=== PATIENT | female | born 1945 | race Caucasian/White ===

== ENCOUNTER → 2016-05-28 | Outpatient (CLI) | payer OTHER ==
[~2016-05-28] MED LIST: ALPR-411 PO; ASPI81TA21 PO; ATEN25TA PO; CHOL4POW5 PO; ESCI1TAB18 PO; GEMF600T PO; HYDR25TA4 PO; LOSA1TAB38 PO; METF500T PO; MULT-845 PO; OMEP40CA41 PO; OXYC-57 PO; POTA10CA28 PO; PRLSR20 PO; ROSU40TA PO; TRIATAB3 PO; [UNRECOGNIZED DRUG - OTHER] PO
[2016-05-28 09:01] LABS: BLOOD UREA NITROGEN 16 mg/dl (7-18); BUN/CREATININE RATIO 27.3 (10-20); CALCIUM 9.5 mg/dl (8.5-10.1); CARBON DIOXIDE 27 mmol/L (21-32); CHLORIDE 110 mmol/L (98-107); GLUCOSE 101 mg/dl (70-99); SODIUM 147 mmol/L (136-145)
[2016-05-28 10:01] LABS: ESTIMATED AVERAGE GLUCOSE 123 mg/dl; HA1C FLAG Normal (Normal)
--- NOTE | 2016-06-02 14:12 | CODING QUERY MEDICAL NECESSITY ---
SUPPORTING DIAGNOSIS NEEDED A supporting diagnosis is required for the test/procedure performed on this patient in order for us to be reimbursed by the patient's insurance. Please provide a supporting diagnosis for the following test/procedure listed below next to the test name along with your signature. *If there is no additional diagnosis for this patient that would support the following test/procedure please document that below next to the test/procedure. Test(s)/Procedure(s) that require a supporting diagnosis: * GLYCATED HEMOGLOBIN DIAGNOSIS: * DOS: 05/28/16 Provider Signature: Date: Thank you Bina Rockwell Health Information Management Once completed, please kindly fax back to [phone] For questions please call [phone]
== END ==
LOC: C.LABFOXMH 08:36
PROVIDERS: ATTEND Internal Medicine
DX: I10 Essential (primary) hypertension (principal); E11.9 Type 2 diabetes mellitus without complications

== ENCOUNTER → 2016-10-21 | Outpatient (CLI) | payer OTHER ==
[~2016-10-21] MED LIST changes: -OXYC-57 PO
[2016-10-21 08:29] LABS: HEMATOCRIT 38.7 % (37-47); MEAN CORPUSCULAR HEMOGLOBIN 28.6 pg (25-34); MEAN CORPUSCULAR HGB CONC 30.7 g/dl (32-36); MEAN PLATELET VOLUME 11.4 fL (7.4-10.4); PLATELET COUNT 206 K/uL (130-400); RED BLOOD COUNT 4.16 M/uL (4.2-5.4); WHITE BLOOD COUNT 4.97 K/uL (4.8-10.8)
[2016-10-21 08:43] LABS: ALT/SGPT 17 U/L (12-78); BLOOD UREA NITROGEN 17 mg/dl (7-18); BUN/CREATININE RATIO 26.2 (10-20); CARBON DIOXIDE 27 mmol/L (21-32); CHLORIDE 114 mmol/L (98-107); CREATININE 0.63 mg/dl (0.60-1.20); GLUCOSE 102 mg/dl (70-99); POTASSIUM 4.9 mmol/L (3.5-5.1); SODIUM 148 mmol/L (136-145)
[2016-10-21 08:48] LABS: CALCIUM 8.7 mg/dl (8.5-10.1)
[2016-10-21 08:54] LABS: ALB/GLOB RATIO 1.2 (0.9-2); ALKALINE PHOSPHATASE 79 U/L (45-117); AST/SGOT 11 U/L (15-37)
[2016-10-21 11:05] LABS: ESTIMATED AVERAGE GLUCOSE 134 mg/dl; HA1C FLAG Normal (Normal)
--- NOTE | 2016-11-02 12:59 | CODING QUERY MEDICAL NECESSITY ---
SUPPORTING DIAGNOSIS NEEDED A supporting diagnosis is required for the test/procedure performed on this patient in order for us to be reimbursed by the patient's insurance. Please provide a supporting diagnosis for the following test/procedure listed below next to the test name along with your signature. *If there is no additional diagnosis for this patient that would support the following test/procedure please document that below next to the test/procedure. Test(s)/Procedure(s) that require a supporting diagnosis: * HEMOGLOBIN A1C DIAGNOSIS: * VITAMIN B12 DIAGNOSIS: Provider Signature: Date: Thank you Ingrid Zaman [employer] Information Management Once completed, please kindly fax back to [phone] For questions please call [phone]
== END | disposition home or self-care (01) ==
LOC: C.LABFOXMH 08:07
PROVIDERS: ATTEND Internal Medicine
DX: G62.9 Polyneuropathy, unspecified (principal); E11.9 Type 2 diabetes mellitus without complications; R53.83 Other fatigue

== ENCOUNTER → 2016-10-30 | Outpatient (CLI) | payer OTHER ==
[~2016-10-30] MED LIST changes: -OMEP40CA41 PO; -TRIATAB3 PO
== END | disposition home or self-care (01) ==
LOC: C.LABFOXMH 08:59
PROVIDERS: ATTEND Internal Medicine
DX: M26.629 Arthralgia of temporomandibular joint, unspecified side (principal)

== ENCOUNTER → 2016-11-23 | Day surgery (SDC) | payer OTHER ==
[2016-10-26 10:16] VITALS: Ht 165.1 cm; Wt 83.2 kg
[~2016-11-23] VITALS: Ht 165.1 cm; Wt 83.2 kg
[~2016-11-23] MED LIST changes: +500ML BSSPLUS 0.5ML EPI1:1000 IRRIG ONE; +ACETAMINOPHEN 325 MG TAB PO PRN; +ATROPINE SULFATE 0.1 MG/ML 5ML SYR IV PRN; +ATROPINE SULFATE 1% OP OINT PER APPLICATION CHARGE ONE; +BSS FLUSH ONE; +BUPIVACAINE HCL 0.75% 10 ML AMP/VIAL ONE; +CEFAZOLIN SOD 1 GM VIAL ONE; +DEXAMETHASONE SOD INJ 4 MG/ML VIAL ONE; +EpHEDrine SULFATE INJ 50 MG/ML AMP IV PRN; +EpINEphrine INJ 1MG/ML AMP 1 MG/ML AMP ONE; +FENTANYL CITRATE INJ 50 MCG/1 ML 2 ML VIAL IV PRN; +FENTANYL CITRATE INJ 50 MCG/1 ML 2 ML VIAL ONE; +HYALURONIDASE HUMAN 150 UNIT/ML INJ ONE; +INDOCYANINE GREEN 25 MG/10 ML ONE; +LACTATED RINGER'S 1000ML 500 ML IV SCH; +LIDOCAINE HCL 2% 2 ML VIAL (20MG/ML) ONE; +LIDOCAINE MPF 4% INJ INJ ONE; +MIDAZOLAM HCL 1 MG/ML 2ML VIAL ONE; +NEOMYCIN/POLYMYX/DEXAMETH OP OINT PER APP CHARGE ONE; +OCUCOAT 1 ML SOLN IO ONE; +ONDANSETRON INJ 2 MG/ML 2 ML VIAL IV PRN; +PROPARACAINE 0.5% OP SOLN PER DROP CHARGE OPL SCH; +PROPOFOL IV EMULSION 10 MG/ML 20 ML VIAL IV ONE; +TIMOLOL MALEATE 0.5% OP SOLN PER DROP CHARGE ONE; +TRIAMCINOLONE ACETONIDE OPHTH 40 MG/ML VIAL STERILE IO ONE
[2016-11-23] MEDS: PHENYLEPHRINE HCL 2.5% OP SOLN PER DROP CHARGE OPL SCH ×2 (08:24→08:35)
[2016-11-23] MEDS: TROPICAMIDE 1% OP SOLN PER DROP CHARGE OPL SCH ×2 (08:25→08:36)
--- NOTE | 2016-11-23 09:52 | History & Physical Bridge - SC ---
H&P Re-Evaluation Bridge Note: Pt has an epiretinal membrane in the left eye and is here for vitrectomy of the left eye. I have examined the patient, reviewed the History & Physical and in the interval since the performance of the History & Physical I have noted the following changes of clinical significance: No changes noted
--- NOTE | 2016-11-23 10:56 | [facility] Operative Report ---
Operative Report Date of Service Nov 23, 2016. Operative Report PREOPERATIVE DIAGNOSIS: Epiretinal membrane, left eye. ICD10: H35.372 POSTOPERATIVE DIAGNOSIS: same and retinal defects, left eye PROCEDURE: 1. Pars plana vitrectomy, 23 gauge. 2. Membrane peeling of the internal limiting membrane and overlying epiretinal membrane. 3. Endolaser. All to the left eye. CPT CODE: 54548 SURGEON: Norman Yu D.O. COMPLICATIONS: None. ESTIMATED BLOOD LOSS: None. SPECIMENS: None. ANESTHESIA: Retrobulbar block and MAC. INDICATIONS FOR PROCEDURE: The patient has an epiretinal membrane that is visually significant. Vitrectomy surgery is indicated to decrease risk of vision loss and potentially improve vision. CONSENT: The risks, benefits and alternatives were discussed with the patient including but not limited to decreased visual acuity, failure to achieve desired results, loss of the eye, infection, pain, glaucoma, lens changes, retinal tears, retinal detachment, the need for more procedures, drooping of the eyelid, blindness, and double vision. The patient is aware of risks and consents to the surgery. Consent is signed and on the chart. OPERATION AND FINDINGS: The patient was brought to the operating room where the patient was identified by name, date, and medical record number. The surgical site was confirmed with the informed written consent. The patient was sedated by the anesthesiology team after which a 50:50 mixture of 4% lidocaine and 0.75% bupivacaine with hyaluronidase was administered in a standard retrobulbar fashion. A total of 4 ml was administered without difficulty. The patient was then prepped and draped in the usual sterile manner for retinal surgery. A wire lid speculum was placed and an Abdiel 23-gauge trocar cannula system was employed. The inferior temporal trocar cannula was first placed in an angled fashion 3.75mm posterior to the surgical limbus and the infusion cannula was inserted into this cannula after which the intravitreal position was verified prior to turning the infusion on. Two more trocar cannulas were then inserted in an angled fashion, one in the superior temporal, and one in the superior nasal quadrant both 3.75mm posterior to the surgical limbus. A light pipe and vitrector were then introduced into the eye and the BIOM wide angle viewing system was brought into place. Standard core vitrectomy was performed the vitreous was insured to be totally detached from the posterior pole with the aid of the vitrector. Next 0.05ml of indocyanine green was placed over the macular surface to stain the internal limiting membrane. This was washed from the eye after 10 seconds. At this point a flat contact lens was placed on the surface of the eye and a flex scraper and ILM forceps were used to gently peel the internal limiting membrane and overlying epiretinal membrane off of the macular surface without difficulty. At this point scleral depression was performed for 360 degrees and several small holes w/ mild traction were noted at the 6 o'clock meridian. These were treated with endolaser. No other retinal defects and no retinal detachments were present. The trocar cannulas were then removed and found to be water tight. The intraocular pressure was found to be within normal limits by palpation and subconjunctival injections of Kefzol and dexamethasone were administered inferiorly and superiorly. The wire lid speculum was removed. Maxitrol was applied to the surface of the eye. A light patch and shield were taped over the surface of the eye and the patient left the Operating Room in stable condition having tolerated the procedure well. DISPOSITION: The patient has an appointment the following morning in the Ophthalmology Clinic. The patient is to call immediately if there are any problems overnight. I attest to the content of the Intraoperative Record and any orders documented therein. Any exceptions are noted below.
--- NOTE | 2016-11-23 10:57 | Discharge Instructions-SurgCtr ---
Discharge Instructions Date of Service Nov 23, 2016. Visit Reason for Visit: Left Eye Epiretinal Membrane Discharge Discharge Diagnosis / Problem: same Discharge Goals Goal(s): Improve function Activity Recommendations Activity Limitations: per Instructions/Follow-up section Anesthesia . Post Anesthesia Instructions: If you have had General Anesthesia or IV Sedation: * Do not drive today. * Resume driving when surgeon permits. * Do not make important decisions or sign legal documents today. * Call surgeon for: 1. Temperature elevations greater than 101 degrees F. 2. Uncontrollable pain. 3. Excessive bleeding. 4. Persistent nausea and vomiting. 5. Medication intolerance (nausea, vomiting or rash). * For nausea and vomiting use only clear liquids such as: tea, soda, bouillon until nausea subsides, then gradually increase diet as tolerated. * If you have any concerns or questions, call your surgeon's office. If physician is unavailable and it is an emergency, call 911 or go to the nearest emergency room. . Diet Recommendations Home Diet: resume previous diet Procedures Procedures Performed: Left Eye 23 Gauge Vitrectomy with laser Pending Studies Studies pending at discharge: no Medical Emergencies . Who to Call and When: Medical Emergencies: If at any time you feel your situation is an emergency, please call 911 immediately. . Non-Emergent Contact Non-Emergency issues call your: [place] . . "Provider Documentation" section prepared by Norman Yu. .
[2016-11-23 11:00] VITALS: TEMP 36.6
[2016-11-23 11:23] VITALS: BP 117/70; PULSE 53; O2SAT 96
--- NOTE | 2016-11-23 11:29 | Anesthesia Progress Nt - [facility] ---
Anesthesia Post Op Note Date & Time Nov 23, 2016 at 11:29 Vital Signs Pain Intensity: 0 Vital Signs Past 12 Hours Date Time Temp Pulse Resp B/P (MAP) Pulse Ox O2 Delivery O2 Flow Rate FiO2 11/23/16 11:23 53 18 117/70 (86) 96 Room Air 11/23/16 11:00 36.6 55 18 120/76 (91) 95 Room Air 11/23/16 08:13 36.7 54 16 131/75 (93) 95 Room Air Notes Mental Status: alert / awake / arousable, participated in evaluation Pt Amnestic to Procedure: Yes Nausea / Vomiting: adequately controlled Pain: adequately controlled Airway Patency, RR, SpO2: stable & adequate BP & HR: stable & adequate Hydration State: stable & adequate Anesthetic Complications: no major complications apparent
== END | disposition home or self-care (01) ==
LOC: X.SURG 07:29
PROVIDERS: ATTEND Ophthalmology
DX: H35.372 Puckering of macula, left eye (principal); K21.9 Gastro-esophageal reflux disease without esophagitis

== ENCOUNTER → 2016-12-14 | Outpatient (CLI) | payer OTHER ==
[~2016-12-14] MED LIST changes: -500ML BSSPLUS 0.5ML EPI1:1000 IRRIG ONE; -ACETAMINOPHEN 325 MG TAB PO PRN; -ATROPINE SULFATE 0.1 MG/ML 5ML SYR IV PRN; -ATROPINE SULFATE 1% OP OINT PER APPLICATION CHARGE ONE; -BSS FLUSH ONE; -BUPIVACAINE HCL 0.75% 10 ML AMP/VIAL ONE; -CEFAZOLIN SOD 1 GM VIAL ONE; -DEXAMETHASONE SOD INJ 4 MG/ML VIAL ONE; -EpHEDrine SULFATE INJ 50 MG/ML AMP IV PRN; -EpINEphrine INJ 1MG/ML AMP 1 MG/ML AMP ONE; -FENTANYL CITRATE INJ 50 MCG/1 ML 2 ML VIAL IV PRN; -FENTANYL CITRATE INJ 50 MCG/1 ML 2 ML VIAL ONE; -HYALURONIDASE HUMAN 150 UNIT/ML INJ ONE; -INDOCYANINE GREEN 25 MG/10 ML ONE; -LACTATED RINGER'S 1000ML 500 ML IV SCH; -LIDOCAINE HCL 2% 2 ML VIAL (20MG/ML) ONE; -LIDOCAINE MPF 4% INJ INJ ONE; -MIDAZOLAM HCL 1 MG/ML 2ML VIAL ONE; -NEOMYCIN/POLYMYX/DEXAMETH OP OINT PER APP CHARGE ONE; -OCUCOAT 1 ML SOLN IO ONE; -ONDANSETRON INJ 2 MG/ML 2 ML VIAL IV PRN; -PROPARACAINE 0.5% OP SOLN PER DROP CHARGE OPL SCH; -PROPOFOL IV EMULSION 10 MG/ML 20 ML VIAL IV ONE; -TIMOLOL MALEATE 0.5% OP SOLN PER DROP CHARGE ONE; -TRIAMCINOLONE ACETONIDE OPHTH 40 MG/ML VIAL STERILE IO ONE
== END | disposition home or self-care (01) ==
LOC: C.MAMM 11:07
PROVIDERS: ATTEND Internal Medicine
DX: Z78.0 Asymptomatic menopausal state (principal)

== ENCOUNTER → 2017-05-26 | Outpatient (CLI) | payer OTHER ==
--- NOTE | 2017-05-26 15:32 | MAMMOGRAPHY REPORT ---
BILATERAL DIGITAL SCREENING MAMMOGRAM TOMOSYNTHESIS WITH CAD: 05/26/2017 CLINICAL HISTORY: Routine screening. Patient has no complaints. TECHNIQUE: Breast tomosynthesis in addition to standard 2D mammography was performed. Current study was also evaluated with a Computer Aided Detection (CAD) system. COMPARISON: Comparison is made to exams dated: 05/01/2016 mammogram, 04/29/2015 mammogram, 4 mammogram, 04/26/2013 mammogram, 04/25/2012 mammogram, and 04/21/2011 mammogram - [facility]. BREAST COMPOSITION: There are scattered areas of fibroglandular density in both breasts. FINDINGS: The parenchymal pattern is unchanged. There are scattered stable benign-appearing microca lcifications. No developing mass, architectural distortion or cluster of suspicious microcalcificati ons is seen in either breast. IMPRESSION: ACR BI-RADS CATEGORY 2: BENIGN There is no mammographic evidence of malignancy. A 1 year screening mammogram is recommended. The pa tient will receive written notification of the results. Approximately 10% of breast cancers are not detected with mammography. A negative mammographic report should not delay biopsy if a clinically suggestive mass is present. Lilliam Rahman M.D. ay/:05/26/2017 14:24:44 Log Chain Worker: Camille FRY(Mc)(M), [facility] letter sent: Normal 1/2 BI-RADS Code: ACR BI-RADS Category 2: Benign
== END | disposition home or self-care (01) ==
LOC: C.MAMM 13:54
PROVIDERS: ATTEND Internal Medicine
DX: Z12.31 Encounter for screening mammogram for malignant neoplasm of breast (principal)

== ENCOUNTER → 2017-07-22 | Outpatient (CLI) | payer OTHER ==
[2017-07-22 10:09] LABS: BLOOD UREA NITROGEN 19 mg/dl (7-18); CALCIUM 8.9 mg/dl (8.5-10.1); CARBON DIOXIDE 29 mmol/L (21-32); CREATININE 0.71 mg/dl (0.60-1.20); GLUCOSE 98 mg/dl (70-99); POTASSIUM 4.1 mmol/L (3.5-5.1); SODIUM 144 mmol/L (136-145)
[2017-07-22 11:11] LABS: HEMOGLOBIN A1C 6.3 % (4.5-5.6)
== END | disposition home or self-care (01) ==
LOC: C.LABFOXMH 07:44
PROVIDERS: ATTEND Internal Medicine
DX: E11.9 Type 2 diabetes mellitus without complications (principal)

== ENCOUNTER → 2017-07-28 | Outpatient (CLI) | payer OTHER ==
[2017-07-28 09:22] LABS: HEMATOCRIT 37.9 % (37-47); HEMOGLOBIN 11.9 g/dL (12.0-16.0); MEAN CELL VOLUME 94.8 fL (80-100); MEAN CORPUSCULAR HEMOGLOBIN 29.8 pg (25-34); MEAN CORPUSCULAR HGB CONC 31.4 g/dl (32-36); MEAN PLATELET VOLUME 11.5 fL (7.4-10.4); PLATELET COUNT 169 K/uL (130-400); RED CELL DISTRIBUTION WIDTH CV 13.6 % (11.5-14.5); WHITE BLOOD COUNT 4.52 K/uL (4.8-10.8)
[2017-07-28 10:54] LABS: ALBUMIN 3.6 gm/dl (3.4-5.0); ALKALINE PHOSPHATASE 67 U/L (45-117); ALT/SGPT 23 U/L (12-78); AST/SGOT 15 U/L (15-37); TOTAL PROTEIN 6.3 gm/dl (6.4-8.2)
== END ==
LOC: C.LABFOXMH 08:51
PROVIDERS: ATTEND Internal Medicine
DX: R53.83 Other fatigue (principal)

== ENCOUNTER → 2017-08-05 | Outpatient (CLI) | payer OTHER ==
--- NOTE | 2017-08-06 06:36 | PAP/PSG TECHNICIAN REPORT ---
[facility] Homeworker Polysomnogram Report Study name: None Report date: 08/06/2017 Study date: 08/05/2017 Referring Physician: Adams Mcallister MD. Name: MARTY RAMOS Interpreting Physician: Brandon Garza D.O. Date of : 1945 Homeworker: Beba Zambrano RPS. Sex: Female Age: 71 Study Type: PSG Weight: 178 lbs Height: 71 years, Height 5' 3" BMI: 31.53 Medications: POTASSIUM CITRATE 10 MEQ, OXYCODONE 5 MG, TAMSULOSIN 0.4 MG, RANITIDINE 150 MG, HYDROCHLOROTHIAZIDE 25 MG, COQ10 10 MG, ALPRAZOLAM 0.5 MG, CRESTOR 40 MG, PREVALITE 4 G, LOPID 600 MG, GLUCOPHAGE 500 MG, LOSARTAN 100 MG, LEXAPRO 20 MG, ATENOLOL 25 MG, CENTRUM SILVER, ASPIRIN 81 MG Patient History 71 yr-old female here for a baseline/split study. She has had previous sleep testing and was placed on CPAP treatment. She could not tolerate CPAP and discontinued use. She is back to assess her ORTEGA. Her Venus scale is 14. The test was started on room air. ETCO2 testing was not utilized during this study. Room 3 Parameters Monitored NPSG: E1-M2, E2-M1, Fp1-M2, Fp2-M1, F3-M2, F4-M2, F4-M1, C3-M2, C4-M2, C4-M1, O1-M2, O2-M2, O2-M1, T3-M2, T4-M1, P3-M2, P4-M1, CHIN1, CHIN2, HR, EKG, Legs, PFLOW, SNOR, FLOW, CFLOW, Tidal Volume, THOR, ABDO, SpO2, PLTH, CPRESS, ETCO2 Wave, ETCO2, pH Sleep Architecture Sleep Stages Time at Lights Off 10:07:06 PM STAGES Time (min.) TST (%) Time at Lights On 5:31:06 AM Wake 126.5 -- Total Recording Time (TRT) 444.00 min. N1 49.0 15 Total Sleep Period (TSP) 405.0 min. N2 196.5 62 Total Sleep Time (TST) 317.5min. N3 44.0 14 Awake Time 126.5 min. REM 28.0 9 Wake after Sleep Onset 87.5 min. Sleep Efficiency (SE) 72 % Sleep Onset Latency (ANASTASIA) 39.0 min. Number of Stage 1 Shifts None Awakenings 15 Stage Changes 78 Number of REM periods 3 REM 28.0 9 REM Latency 316.0 min. NREM 289.5 91 Body Position Analysis Supine Right Left Side Prone Vertical Total Sleep Time (min.) 245.5 65.5 48.9 114.36 0.0 0.0 Total Sleep Time (%) 64% 21% 15% 36 0% N/A% Total Sleep Time REM (min.) 9.5 18.5 0.0 None 0.0 0.0 Total Sleep Time NREM (min.) 193.6 47.0 48.9 None 0.0 0.0 Intermittent Wake (min.) 42.4 31.2 52.9 None 0.0 0.0 Total Sleep Period (%) 56% None None None None None Arousals Myoclonus (PLM) * Events Count Index Events Count Index Spontaneous 14 3 Events Awake (PLMW) 127 60.2 Respiratory 3 1.1 Events Asleep w/ Arousal (PLMA) 42 7.9 PLM 41 8 Events Asleep w/o Arousal (PLMS) 505 95.4 Snoring 10 2 Total Asleep 547 103.4 Total 68 13 Total 674 91 Respiratory Analysis * CA OA MA CH H RERA Total Count 0 0 0 0 13 5 13 Index 0.0 0.0 0.0 0 2.5 1 3.4 Mean Duration 0.0 0.0 0.0 0.00 18.4 18.1 18.3 Longest Duration 0.0 0.0 0.0 0.00 0.0 20.0 30.4 Respiratory Event Summary Total Supine ~Supine Right Left Prone REM NREM Apneas Count 0 0 0 0 0 N/A 0 0 Index 0.0 0 0 0.0 0.0 N/A 0 0 Hypopneas (4% Desat) Count 13 7 6 5 1 N/A 6 7 Index 2.5 2.1 3 4.6 1.2 N/A 12.9 1.5 Apneas & All Hypopneas Count 13 7 6 5 1 N/A 6 7 Index 2.5 2 3 5 1 N/A 12.9 1.5 Respiratory Events (Legal Analyst+All Hyp+RERA) Count 13 9 9 7 2 N/A 6 7 Index 3.4 3 5 6.4 2.5 N/A 15.0 2.3 Respiratory Related Arousal Count 3 9 3 2 1 N/A 2 4 Index 1.1 1 2 2 1 N/A 4 1 Snoring Analysis Supine Right Left Prone REM NREM Total Snore duration 26.3 min Snores count 955 87 400 N/A 48 1,394 1,442 Snore mean duration 1.1 Sec Snores index 282 80 491 N/A 102.9 288.9 272.5 TST with snoring (%) 8.3% Desaturation Event Summary: Minimum %SpO2 Event Count Mean/Min/Max Duration(sec.) Desaturation Index % Time In Bed > 90 32 26.1 / 5.0 / 56.8 5.1 86.7 86 - 90 3 8.7 / 4.8 / 13.8 3.1 13.3 81 - 85 0 N/A 0.0 0.1 76 - 80 0 N/A 0.0 0.0 71 - 75 0 N/A 0.0 0.0 66 - 70 0 N/A 0.0 0.0 61 - 65 0 N/A 0.0 0.0 56 - 60 0 N/A 0.0 0.0 51 - 55 0 N/A 0.0 0.0 < 50 0 N/A 0.0 0.0 Total REM NREM Awake <50% 0.0 min. 0.0 min. 0.0 min. 0.0 min. 51 - 60% 0.0 min. 0.0 min. 0.0 min. 0.0 min. 61 - 70% 0.0 min. 0.0 min. 0.0 min. 0.0 min. 71 - 80% 0.0 min. 0.0 min. 0.0 min. 0.0 min. 81 - 90% 58.4 min. 7.8 min. 48.0 min. 2.7 min. 91 - 100% 380.2 min. 20.2 min. 241.0 min. 119.0 min. Average 92 92 92 94 Minimum SpO2 84 84 86 89 Desaturation Event Index 4.6 12.9 1.9 9.0 # Desat. Events below 89% 9 4 5 N/A Time(%) with Saturation below 89% 1.0 0.4 0.6 0.0 Time(min.) with Saturation below 89% 4.5 1.8 2.8 0.0 Time (mins) REM (mins) NREM (mins) % of TST SpO2 Below 90% 11 6 N5 5.7 SpO2 Below 88% 3 0 0 0 Heart Rate Analysis Min (bpm) Max (bpm) Average (bpm) Awake 44 79 57 NREM 45 94 56 REM 47 73 59 Overall 45 94 57 Supplemental O2 Values Minimum O2 level: None Value Start Time End Time Homeworker Comments Ms. Ramos slept in the right, left, and supine positions. Cardiac arrhythmias were noted (please refer to the printouts). PLMs were noted. No bruxism noted. Snoring was noted and scored as a 2 on a scale of 1 through 5. (0=no snoring, 5=snoring loud enough to be heard through a closed door or down the [address]bell way). She did not meet specific Split-Night criteria during the diagnostic portion of this study. She awoke to use the restroom one time during the night. Ms. Ramos stated that she slept poorly. The final report will be interpreted and signed by a sleep physician. The completed physician report will then be placed in the patient medical record. Therapy (cm H2O) 0 TIB (min.) 444.0 TST (min.) 317.5 Sleep Onset (min.) 39.0 REM Onset From Sleep (min.) 316.0 Sleep Efficiency % 72 Wakefulness (%) 28 Wakefulness (min.) 126.5 NREM 1 (%) 15 NREM 1 (min.) 49.0 NREM 2 (%) 62 NREM 2 (min.) 196.5 NREM 3 (%) 14 NREM 3 (min.) 44.0 REM (%) 9 REM (min.) 28.0 # Arousals 68 Arousal Index 13 # Snore 1,442 Snore Index 272.5 AHI 2.5 AHI Supine 2 AHI Non-Supine 3 NREM AHI 1.5 REM AHI 12.9 RDI 3.4 # Obstructive Apnea 0 # Central Apnea 0 # Mixed Apnea 0 # Hypopneas 13 RERAs 5 Total Respiratory Events 18 Time Below SpO2 89% (min.) 4.5 Mean NREM SpO2 (%) 92 Mean REM SpO2 (%) 92 Mean Sleep SpO2 (%) 92 Min NREM SpO2 (%) 86 Min REM SpO2 (%) 84 Position Supine (min.) 245.5 Position Non-supine (min.) 114.4 LM Index Sleep 103.4 LM Index NREM 109.4 LM Index REM 40.7 Mean Heart Rate (bpm) 57 Min Heart Rate (bpm) 45
--- NOTE | 2017-08-08 12:02 | POLYSOMNOGRAPH REPORT ---
SLEEP STUDY REPORT REFERRING PHYSICIAN: Dr. Adams Mcallister. CLINICAL DATA: The patient is a 71-year-old female who has a prior history of sleep apnea. She was on nasal CPAP therapy but could not tolerate it. She has a history of fatigue and hypersomnolence. Her [place] sleepiness scale score is 14. This was an in-lab overnight polysomnography. SLEEP ARCHITECTURE: The total sleep period was 405 minutes. The total sleep time was 317.5 minutes. The sleep efficiency was moderately reduced to 72%. The sleep latency was prolonged to 39 minutes. Wake after sleep onset was increased to 87.5 minutes. The REM latency was prolonged to 316 minutes. There were 2 REM periods during the night. Sleep consisted of stage N1 15%, stage N2 62%, stage N3 14%, and stage REM 9%. AROUSAL DATA: The patient had a total of 68 arousals including 14 spontaneous arousals, 3 respiratory arousals, 41 PLM arousals, and 10 snoring arousals. The arousal index was 13. PERIODIC LIMB MOVEMENT DATA: The patient had a total of 547 periodic limb movements of sleep for a PLM index of 103.4. There were 42 arousals, associated with limb movements for a PLM arousal index of 7.9. ECHOCARDIOGRAM: The underlying cardiac rhythm was normal sinus. The cardiac rates ranged from 45-94 beats per minute. The average heart rate was 57 beats per minute. There were at times frequent PACs. RESPIRATORY DATA: The patient had a total of 13 respiratory events, all hypopneas. Hypopneas were scored according to the 4% desaturation rule. The mean duration of the hypopneas was 18.4. She had 5 RERAs. The apnea/hypopnea index was 2.5 events per hour. This would suggest no significant obstructive sleep apnea. OXIMETRY DATA: The average saturation for the night was 92%. The minimum saturation was 84%. There was a total of 4.5 minutes with saturations less than 89%. 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 Cardiac arrhythmias were noted. Snoring was noted and scored as a 2 on a scale of 1 through 5. She did not meet specific split night criteria during the diagnostic portion of the study. She awoke to use the restroom one time during the night. The patient stated that she slept poorly. IMPRESSION: 1. No evidence of significant obstructive sleep apnea. 2. Periodic limb movement disorder. 3. Cardiac arrhythmia - premature atrial contractions. RECOMMENDATIONS: 1. Clinical correlation is required regarding the periodic limb movements to determine if she may have true restless leg syndrome. She does have a complaint of fatigue and hypersomnolence. In light of the fact that she does not have significant sleep apnea, it is possible the limb movements are contributing to her sleep disruption. Treatment with medications for the limb movement such as pramipexole could be considered. 2. It is suggested that she have a serum ferritin level checked in light of the limb movement disorder. Treatment with iron supplementation would be indicated if the ferritin level is less than 50. 3. The patient does take some medications which could contribute to daytime sleepiness, including oxycodone and alprazolam. Clinical correlation is advised. 4. Weight loss is advised in light of the elevation of body mass index at 31.53. 5. If possible, the patient should avoid sleeping in the supine position where there is typically an increase in respiratory events and snoring.
== END | disposition home or self-care (01) ==
LOC: C.NEUR 21:00
PROVIDERS: ATTEND Internal Medicine
DX: G47.30 Sleep apnea, unspecified (principal)

== ENCOUNTER → 2017-08-30 | Outpatient (CLI) | payer OTHER ==
[~2017-08-30] MED LIST changes: +ASPI-319 PO; -ASPI81TA21 PO
== END | disposition home or self-care (01) ==
LOC: C.LABFOXMH 08:35
PROVIDERS: ATTEND Internal Medicine
DX: G25.81 Restless legs syndrome (principal)

== ENCOUNTER 2022-11-07 15:07 | Observation (INO) ==
--- NOTE | 2022-11-07 15:17 | Emergency Department Note ---
Impression & Plan Acute exacerbation of CHF (congestive heart failure), OLMEDO (dyspnea on exertion), Leg swelling, Fall, CHI (closed head injury) ED Provider Note NAME: MARTY RAMOS AGE: 77 SEX: F : 1945 ARRIVES VIA: Walk-In INFORMANT: Patient, ED PROVIDER(S): Patel Benavidez MD CHIEF COMPLAINT: Fall, head strike MEDICAL DECISION MAKING: Patient presents due to concern for fall and head strike but the patient was noted to be hypoxemic in triage and does have increased work of breathing. IV was established blood work is obtained. [id number] BMP obtained which showed normal potassium patient was ordered a dose of IV Lasix. CT of the head and cervical spine along with a chest x-ray also ordered. CT of the head shows likely meningioma but no obvious blood. CT cervical spine negative for acute fracture. Patient's chest x-ray without obvious pneumothorax. Given the patient's OLMEDO leg swelling intermittent hypoxia and tac hypnea I do believe the patient would benefit from IV diuresis and admission. The patient is also noted to have an increase in her weight from her most recent visit. The patient's blood work does show an elevated BNP. The patient's white count is normal with a normal hemoglobin and platelet count. Patient's kidney function is grossly unremarkable troponin is not elevated. COVID-negative. After further discussion with the patient as the patient was wanting to leave patient is willing to stay. I did speak with the on-call hospital service Dr. Johnson and the patient was admitted to the medicine service Prior /Outside records reviewed: I did review a recent operative report with Dr. 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 This was completed on September 10, 2022. Differential diagnosis: ICH, fracture, sprain, strain, pneumonia, CHF, pneumonitis, pneumothorax among others were considered. Diagnostics, as interpreted by me: ECG: Paced rhythm, rate of 60, normal intervals, left axis deviation Cardiac monitoring: An order was placed for continuous cardiac monitoring. The monitor shows a rate of 65 with paced rhythm. Patient was placed on pulse oximetry Medical decision rules: Cato head CT rule, Nexus rule Imaging studies: See below I informally reviewed the patient's CT of the head which shows no obvious ICH but does show a calcified lesion possibly meningioma. I informally reviewed the patient's CT of the cervical spine which showed no obvious fracture. HPI: Patient presents due to concern for fall and head strike. The patient states that she was getting up from a drawing test and that when she pushed back her rolling chair and that the chair caught the carpet and she fell backward striking the back of her head. Patient does take Eliquis for known history of A-fib. Patient denies any chest pains but has noticed some increasing shortness of breath with dyspnea on exertion no significant orthopnea. The patient is also noticed increasing lower extremity swelling. Patient did have a pacemaker placed approximate [address] Cha. Patient denies and does not complain of any numbness tingling or focal weakness. Patient denies any headache. Patient did recently start metoprolol and amiodarone. Patient denies any abdominal pain nausea vomiting or diaphoresis. PAST MEDICAL HISTORY: See Below PAST SURGICAL HISTORY: See Below SOCIAL HISTORY: See Below HOME MEDICATIONS: See Below ALLERGIES: See Below VITALS: See Below PHYSICAL EXAMINATION: GENERAL: Increased work of breathing, mild tachypnea, wearing glasses. Nontoxic EYE EXAM: Normal conjunctiva. PERRL, no anisocoria and EOM's grossly intact w/o pain. Head: Normocephalic atraumatic. No pain to the occipital area. NECK: Supple, no nuchal rigidity, no adenopathy, non-tender. No signs of meningismus. FROM of the neck with good chin to chest and neck extension. No stridor. No midline C-spine TTP. Chest: Patient's pacemaker pocket well-appearing and healing. LUNGS: Clear to auscultation. Increased work of breathing, mild tachypnea HEART: Regular rhythm, no MRG. ABDOMEN: Abdomen soft, non-tender, no masses, no rebound or guarding. BACK: No CVA TTP. SKIN: No rashes and no bruising. UPPER EXTREMITIES: Upper extremities are grossly normal. No TTP or deformity. LOWER EXTREMITIES: Grossly normal, 1-2+ symmetric lower extremity edema without any calf pain or erythema. No crepitus NEURO EXAM: A&O x3, cranial nerves II-XII grossly intact, normal speech, moves all 4 extremities. Past Med/Surg History Medical History (Updated 11/08/22 @ 08:43 by Patel Benavidez MD) Anxiety Atrial fibrillation newly dx, May 2022. following with Dr Bacon & Dr Jacob. Depression Diastolic heart failure Per records DM type 2 (diabetes mellitus, type 2) NIDDM - unable to tolerate the metformin, currently diet regulated and monitoring currently. GERD (gastroesophageal reflux disease) Hiatal hernia History of basal cell carcinoma History of nephrolithiasis History of squamous cell carcinoma Hyperlipidemia Hypertension ORTEGA (obstructive sleep apnea) Mild per records Renal cyst RLS (restless legs syndrome) Stress incontinence Tachy-nguyễn syndrome Borderline per cardio records Surgical History History of appendectomy History of basal cell carcinoma (BCC) excision History of cardiac catheterization approx 10 years ago - [facility] - failed stress test - no stents/angioplasty History of cataract surgery History of cholecystectomy 2020 History of colonoscopy History of esophagogastroduodenoscopy (EGD) History of hysterectomy History of lithotripsy History of non-cataract eye surgery History of squamous cell carcinoma excision History of tonsillectomy Nausea and vomiting after administration of anesthetic agent Family History Father Cancer Hypertension Diabetes Other No family history of adverse response to anesthesia No significant family history Social History Smoking Status: Never smoker Second Hand Exposure: Yes (spouse used to smoke alot); Do You Dip or Chew Tobacco: No; Hx Alcohol Use: No Hx Substance Use: No Preferred Language: Yemeni Communication Ability: Effective Coating And Baking Operator Required: No Beliefs That Will Affect Care: None marital status: / Current Living Situation: Personal Care Facility Current Living Situation Comment: [facility] current occupational status: retired 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[employer] How many Children do You have: 0 Feels Safe at Home: Yes Assistive Devices: None Allergies Allergies Allergy/AdvReac Type Severity Reaction Status Date / Time JOSE Inhibitors AdvReac Mild COUGH Verified 11/07/22 17:49 Home Meds Home Medications Medication Instructions Recorded Confirmed escitalopram oxalate 20 mg tablet 20 mg PO QAM 02/15/19 11/07/22 alprazolam 0.5 mg tablet 0.5 mg PO DAILY PRN Anxiety 02/20/19 11/07/22 cholestyramine-aspartame 4 gram 4 gm PO BID 02/20/19 11/07/22 oral powder (Prevalite) pramipexole 0.5 mg tablet (Mirapex) 0.5 mg PO BID 02/20/19 11/07/22 potassium citrate 10 mEq (1,080 2,160 mg PO BID 11/07/19 11/07/22 mg) tablet,extended release coenzyme Q10 100 mg capsule 100 mg PO QPM 02/16/20 11/07/22 multivitamin 1 tab PO QPM 02/16/20 11/07/22 rosuvastatin 40 mg tablet (Crestor) 40 mg PO HS 03/08/20 11/07/22 candesartan 8 mg tablet 8 mg PO QAM 10/23/21 11/07/22 metoprolol succinate 25 mg 37.5 mg PO BID 04/29/22 11/07/22 tablet,extended release 24 hr amiodarone 200 mg tablet 200 mg PO BID 08/25/22 11/07/22 omeprazole 40 mg capsule,delayed 40 mg PO QPM 08/25/22 11/07/22 release apixaban 5 mg tablet (Eliquis) 5 mg PO BID 11/07/22 11/07/22 Previous Rx's Medication Instructions Recorded furosemide 40 mg tablet 40 mg PO BID #60 tabs 11/08/22 Results & Data (ED) Vital Signs Vital Signs - 24 hr 11/07/22 16:01 11/07/22 16:01 11/07/22 16:25 Pulse Rate 64 Pulse Rate from SpO2 Sensor Respiratory Rate Respiratory Depth Normal Blood Pressure Blood Pressure Mean Pulse Oximetry Oxygen Delivery Method Room Air Room Air 11/07/22 15:21 11/07/22 15:22 11/07/22 15:30 Pulse Rate 68 Pulse Rate from SpO2 Sensor 68 Respiratory Rate 23 Respiratory Depth Blood Pressure 140/88 113/67 Blood Pressure Mean 104 92 Pulse Oximetry 94 Oxygen Delivery Method 11/07/22 15:30 11/07/22 15:45 11/07/22 16:13 Pulse Rate 60 68 Pulse Rate from SpO2 Sensor 60 67 Respiratory Rate 18 23 Respiratory Depth Blood Pressure Blood Pressure Mean Pulse Oximetry 92 93 Oxygen Delivery Method 11/07/22 16:23 11/07/22 16:30 11/07/22 16:31 Pulse Rate 65 63 Pulse Rate from SpO2 Sensor 64 63 Respiratory Rate 13 18 Respiratory Depth Blood Pressure 128/68 Blood Pressure Mean 98 Pulse Oximetry 91 92 Oxygen Delivery Method 11/07/22 16:31 11/07/22 16:45 11/07/22 17:00 Pulse Rate 62 61 61 Pulse Rate from SpO2 Sensor 62 61 62 Respiratory Rate 19 26 H 16 Respiratory Depth Blood Pressure Blood Pressure Mean Pulse Oximetry 93 93 93 Oxygen Delivery Method 11/07/22 17:01 11/07/22 17:01 11/07/22 17:15 Pulse Rate 61 60 Pulse Rate from SpO2 Sensor 61 Respiratory Rate 24 14 Respiratory Depth Blood Pressure Blood Pressure Mean 78 Pulse Oximetry 91 Oxygen Delivery Method 11/07/22 17:30 Pulse Rate 61 Pulse Rate from SpO2 Sensor Respiratory Rate 26 H Respiratory Depth Blood Pressure Blood Pressure Mean Pulse Oximetry Oxygen Delivery Method Home Medications Current Medication List: was personally reviewed by me Laboratory Data Attestation: I reviewed the patient's lab results. 11/08/22 05:18 11/08/22 05:18 Lab Results 11/07/22 11/07/22 11/07/22 Range/Units 15:45 15:45 15:45 WBC 5.25 (4.8-10.8) K/ul RBC 3.97 L (4.20-5.40) M/uL Hgb 12.1 (12.0-16.0) g/dl POC Hgb (12.0-16.0) g/dl Hct 38.5 (37.0-47.0) % POC Hct (37-47) % MCV 97.0 (80.0-100.0) fL MCH 30.5 (25.0-34.0) pg MCHC 31.4 L (32.0-36.0) g/dL RDW Std Deviation 49.6 H (36.4-46.3) fL RDW Coeff of Kamala 13.9 (11.5-14.5) % Plt Count 158 (130-400) K/uL MPV 11.3 (9.4-12.4) fL Immature Gran % (Auto) 0.6 % Neut % (Auto) 58.8 % Lymph % (Auto) 23.6 % [place] % (Auto) 10.3 % Eos % (Auto) 5.0 % Baso % (Auto) 1.7 % Neut # (Auto) 3.09 (1.40-6.50) K/uL Lymph # (Auto) 1.24 (1.2-3.4) K/uL [place] # (Auto) 0.54 (0.11-0.59) K/uL Eos # (Auto) 0.26 (0-0.50) K/uL Baso # (Auto) 0.09 (0-0.2) K/uL Immature Gran # (Auto) 0.03 (0.01-0.20) K/uL PT 10.7 (9.0-12.0) Seconds INR 1.0 (0.9-1.1) POC Sodium (135-144) mmol/L Sodium (136-145) mmol/L POC Potassium (3.3-5.0) mmol/L Potassium (3.5-5.1) mmol/L POC Chloride (101-112) mmol/L Chloride (98-107) mmol/L Carbon Dioxide (21-32) mmol/L POC Total CO2 (24-31) mmol/L Anion Gap (3-11) POC Anion Gap (16-25) mmol/L POC BUN (7-18) mg/dl BUN (6-23) mg/dl Creatinine (0.6-1.2) mg/dl POC Creatinine (0.6-1.3) mg/dl Est Cr Clr Drug Dosing ml/min Est GFR ( Amer) ml/min Est GFR (Non-Af Amer) ml/min BUN/Creatinine Ratio (10-20) Glucose (70-99(Fasting)) mg/dl POC Glucose (other) (70-99) mg/dl Calcium (8.6-10.3) mg/dl POC Ioniz Calcium Maral (1.12-1.32) mmol/l Total Bilirubin (0.2-1.0) mg/dl AST (13-39) U/L ALT (7-52) U/L Alkaline Phosphatase (34-104) U/L Troponin I High Sens (0-14) pg/ml B-Natriuretic Peptide 519 H (0-100) pg/ml Total Protein (6.0-8.3) gm/dl Albumin (3.4-5.0) gm/dl Globulin (2.5-4.0) gm/dl Albumin/Globulin Ratio (0.9-2) SARS-CoV-2, RNA, NAAT (NEGATIVE) 11/07/22 11/07/22 11/07/22 Range/Units 15:45 15:49 16:00 WBC (4.8-10.8) K/ul RBC (4.20-5.40) M/uL Hgb (12.0-16.0) g/dl POC Hgb 12.6 (12.0-16.0) g/dl Hct (37.0-47.0) % POC Hct 37 (37-47) % MCV (80.0-100.0) fL MCH (25.0-34.0) pg MCHC (32.0-36.0) g/dL RDW Std Deviation (36.4-46.3) fL RDW Coeff of Kamala (11.5-14.5) % Plt Count (130-400) K/uL MPV (9.4-12.4) fL Immature Gran % (Auto) % Neut % (Auto) % Lymph % (Auto) % [place] % (Auto) % Eos % (Auto) % Baso % (Auto) % Neut # (Auto) (1.40-6.50) K/uL Lymph # (Auto) (1.2-3.4) K/uL [place] # (Auto) (0.11-0.59) K/uL Eos # (Auto) (0-0.50) K/uL Baso # (Auto) (0-0.2) K/uL Immature Gran # (Auto) (0.01-0.20) K/uL PT (9.0-12.0) Seconds INR (0.9-1.1) POC Sodium 144 (135-144) mmol/L Sodium 143 (136-145) mmol/L POC Potassium 4.4 (3.3-5.0) mmol/L Potassium 4.4 (3.5-5.1) mmol/L POC Chloride 105 (101-112) mmol/L Chloride 107 (98-107) mmol/L Carbon Dioxide 29 (21-32) mmol/L POC Total CO2 27 (24-31) mmol/L Anion Gap 7 (3-11) POC Anion Gap 17.0 (16-25) mmol/L POC BUN 26 H (7-18) mg/dl BUN 28 H (6-23) mg/dl Creatinine 1.09 (0.6-1.2) mg/dl POC Creatinine 1.1 (0.6-1.3) mg/dl Est Cr Clr Drug Dosing 45.4 ml/min Est GFR ( Amer) 56.3 ml/min Est GFR (Non-Af Amer) 48.6 ml/min BUN/Creatinine Ratio 25.7 H (10-20) Glucose 123 H (70-99(Fasting)) mg/dl POC Glucose (other) 124 H (70-99) mg/dl Calcium 9.3 (8.6-10.3) mg/dl POC Ioniz Calcium Maral 1.19 (1.12-1.32) mmol/l Total Bilirubin 0.3 (0.2-1.0) mg/dl AST 24 (13-39) U/L ALT 22 (7-52) U/L Alkaline Phosphatase 73 (34-104) U/L Troponin I High Sens 6.0 (0-14) pg/ml B-Natriuretic Peptide (0-100) pg/ml Total Protein 6.6 (6.0-8.3) gm/dl Albumin 4.3 (3.4-5.0) gm/dl Globulin 2.3 L (2.5-4.0) gm/dl Albumin/Globulin Ratio 1.9 (0.9-2) SARS-CoV-2, RNA, NAAT NEGATIVE (NEGATIVE) Administered Medications Discontinued Medications Amiodarone HCl (Amiodarone 200 Mg Tab) 200 mg PO DAILY [facility] Stop: 12/08/22 08:59 Last Admin: 11/08/22 09:56 Dose: 200 mg Documented By: KRISTOPHER Apixaban (Apixaban 5 Mg Tablet) 5 mg PO BID [facility] Stop: 12/07/22 20:59 Last Admin: 11/08/22 09:56 Dose: 5 mg Documented By: Admin: 11/07/22 20:24 Dose: 5 mg Documented By: TAVON Escitalopram Oxalate (Escitalopram Oxalate 20 Mg Tab) 20 mg PO QAM [facility] Stop: 12/08/22 08:59 Last Admin: 11/08/22 09:56 Dose: 20 mg Documented By: KRISTOPHER Furosemide (Furosemide 40 Mg/4 Ml Vial) 40 mg IV ONE ONE Stop: 11/07/22 16:27 Last Admin: 11/07/22 16:39 Dose: 40 mg Documented By: ARIAS Furosemide (Furosemide 40 Mg/4 Ml Vial) 40 mg IV [id number] [facility] Stop: 12/08/22 08:59 Last Admin: 11/08/22 10:02 Dose: 40 mg Documented By: WS Losartan Potassium (Losartan Potassium 25 Mg Tab) 25 mg PO QAM [facility] Stop: 12/08/22 08:59 Last Admin: 11/08/22 09:56 Dose: 25 mg Documented By: WS Metoprolol Succinate (Metoprolol Succ 25mg Ext Rel Tab) 37.5 mg PO BID [facility] Stop: 12/07/22 20:59 Last Admin: 11/08/22 09:55 Dose: 37.5 mg Documented By: Admin: 11/07/22 20:24 Dose: 37.5 mg Documented By: TAVON Pantoprazole Sodium (Pantoprazole 40 Mg Tab) 40 mg PO QPM [facility]ISA Stop: 12/07/22 20:59 Last Admin: 11/07/22 20:24 Dose: 40 mg Documented By: TAVON Potassium Citrate (Potassium Citrate 10 Meq Tab) 20 meq PO BID [facility]ISA Stop: 12/07/22 20:59 Last Admin: 11/08/22 09:55 Dose: 20 meq Documented By: Admin: 11/07/22 20:24 Dose: 20 meq Documented By: TAVON Pramipexole Dihydrochloride (Pramipexole Dihydrochlo 0.5 Mg Tab) 0.5 mg PO BID [facility]ISA Stop: 12/07/22 20:59 Last Admin: 11/08/22 09:55 Dose: 0.5 mg Documented By: Admin: 11/07/22 20:24 Dose: 0.5 mg Documented By: TAVON Rosuvastatin Calcium (Rosuvastatin Calcium 20 Mg Tab) 40 mg PO HS [facility]ISA Stop: 12/07/22 20:59 Last Admin: 11/07/22 20:24 Dose: 40 mg Documented By: TAVON Imaging Data Radiologist's Impression: Chest X-Ray 11/07/22 15:26 XR chest 1V portable CLINICAL HISTORY: sob TECHNIQUE: Single frontal radiograph of the chest was obtained. Comparison: Comparison is made to chest radiograph 08/26/2022 FINDINGS: Dual lead pacemaker is seen. Cardiomegaly is noted. The lungs are clear. No evidence of pleural effusion or pneumothorax. IMPRESSION: No acute chest disease. Cardiomegaly is noted. No evidence of pneumonia. ACT 112: Negative or not required by law. Electronically signed by: Isiah Hardy M.D. 11/07/2022 4:[address] 11/07/22 15:27 CT cervical spine wo con CLINICAL HISTORY: fall TECHNIQUE: Multidetector row helical CT of the cervical spine was performed without administration of intravenous contrast. Coronal and sagittal refor mations were obtained. Automated dose lowering techniques and/or adjustment according to patient size were utilized for this exam. Comparison: None available at the time of this dictation. FINDINGS: No acute fractures or subluxations are identified. Degenerative changes are seen in the visualized spine. There is straightening of the cervical spine. Soft tissues are unremarkable. IMPRESSION: Straightening of the cervical spine which can be seen in muscle spasm. No evidence of fracture. ACT 112: Negative or not required by law. Electronically signed by: Isiah Hardy M.D. 11/07/2022 5:[address] 11/07/22 15:27 CT head/brain wo con CLINICAL HISTORY: Trauma Technique: Contiguous axial CT images of the head were acquired from the base of the skull to the vertex without intravenous contrast administration. Images were viewed in brain, subdural and bone windows. Automated dose lowering techniques and/or adjustment according to patient size were utilized for this exam. Comparison: None available at the time of this dictation. Findings: The ventricles, basal cisterns, and cerebral sulci are normal. There is no acute intracranial hemorrhage or evidence of acute territorial infarction. Neither mass effect, shift of the midline structures, nor abnormal extra-axial fluid collections are shown. Imaged portions of the paranasal sinuses and mastoid air cells are clear. The orbits appear normal. There are no acute fractures of the calvaria or scalp swelling. Prominent calcified lesion arises from the inner table of the greyson varium. Impression: 1. No acute intracranial hemorrhage, no evidence of acute territorial infarc tion or other acute intracranial disease process. 2. Prominent calcified lesion in the inner table of the calvarium may represent calcified meningioma or less likely osteoma. ACT 112: Negative or not required by law. Electronically signed by: Isiah Hardy M.D. 11/07/2022 4:35 PM Discharge Plan Visit Data Chief Complaint: Fall Stated Complaint: FELL, LUMP ON BACK OF HEAD,BLOOD THINNERS ED Provider: Patel Benavidez Discharge Problem: Acute exacerbation of CHF (congestive heart failure), OLMEDO (dyspnea on exertion), Leg swelling, Fall, CHI (closed head injury) Patient Disposition: Admitted As Inpatient Discharge Instructions Interventions: ED Discharge Assessment Last Done: 11/07/22 18:56 Acute exacerbation of CHF (congestive heart failure) Qualifiers: Heart failure type: unspecified Qualified Code(s): I50.9 - Heart failure, unspecified Fall Qualifiers: Encounter type: initial encounter Qualified Code(s): W19.XXXA - Unspecified fall, initial encounter CHI (closed head injury) Qualifiers: Encounter type: initial encounter Qualified Code(s): S09.90XA - Unspecified injury of head, initial encounter
[2022-11-07 16:06] LABS: iSTAT Creatinine 1.1 mg/dl (0.6-1.3); iSTAT Hemoglobin 12.6 g/dl (12.0-16.0); iSTAT Ionized Calcium 1.19 mmol/l (1.12-1.32); iSTAT Potassium 4.4 mmol/L (3.3-5.0)
[2022-11-07 16:08] LABS: Basophils # (auto) 0.09 K/uL (0-0.2); Basophils % (auto) 1.7 %; Eosinophils # (auto) 0.26 K/uL (0-0.50); Hematocrit (blood only) 38.5 % (37.0-47.0); Hemoglobin 12.1 g/dl (12.0-16.0); Immature Granulocytes # (auto) 0.03 K/uL (0.01-0.20); Immature Granulocytes % (auto) 0.6 %; Lymphocytes # (auto) 1.24 K/uL (1.2-3.4); Lymphocytes % (auto) 23.6 %; Mean Corpuscular Hemoglobin 30.5 pg (25.0-34.0); Mean Corpuscular Hgb Conc 31.4 g/dL (32.0-36.0); Mean Platelet Volume 11.3 fL (9.4-12.4); Monocytes # (auto) 0.54 K/uL (0.11-0.59); Monocytes % (auto) 10.3 %; Neutrophils # (auto) 3.09 K/uL (1.40-6.50); Neutrophils % (auto) 58.8 %; Platelet Count 158 K/uL (130-400); RDW Coefficient of Variation 13.9 % (11.5-14.5); RDW Standard Deviation 49.6 fL (36.4-46.3); Red Blood Count 3.97 M/uL (4.20-5.40); White Blood Count 5.25 K/ul (4.8-10.8)
[2022-11-07 16:25] LABS: Albumin Globulin Ratio 1.9 (0.9-2); Albumin Level 4.3 gm/dl (3.4-5.0); BUN Creatinine Ratio 25.7 (10-20); Bilirubin,Total 0.3 mg/dl (0.2-1.0); Calcium 9.3 mg/dl (8.6-10.3); Creatinine Clr Calc Pharmacy 45.4 ml/min; Est GFR (African American) 56.3 ml/min; Est GFR (Non-African American) 48.6 ml/min; Globulin 2.3 gm/dl (2.5-4.0); Potassium 4.4 mmol/L (3.5-5.1); Total Protein 6.6 gm/dl (6.0-8.3)
[2022-11-07] MEDS ORDERED: FUROSEMIDE 40 MG/4 ML VIAL IV ONE (16:26)
--- NOTE | 2022-11-07 16:36 | CT Scan Report ---
CT head/brain wo con CLINICAL HISTORY: Trauma Technique: Contiguous axial CT images of the head were acquired from the base of the skull to the jennifer juan f without intravenous contrast administration. Images were viewed in brain, subdural and bone [facility]. Automated dose lowering techniques and/or adjustment according to patient size were utilized for this exam. Comparison: None available at the time of this dictation. Findings: The ventricles, basal cisterns, and cerebral sulci are normal. There is no acute intracranial hemorrh age or evidence of acute territorial infarction. Neither mass effect, shift of the midline structures , nor abnormal extra-axial fluid collections are shown. Imaged portions of the paranasal sinuses and mastoid air cells are clear. The orbits appear normal. There are no acute fractures of the calvaria or scalp swelling. Prominent calcified lesion arises fr om the inner table of the calvarium. Impression: 1. No acute intracranial hemorrhage, no evidence of acute territorial infarction or other acute intr acranial disease process. 2. Prominent calcified lesion in the inner table of the calvarium may represent calcified meningioma or less likely osteoma. ACT 112: Negative or not required by law. Electronically signed by: Isiah Hardy M.D. 11/07/2022 4:35 PM
[2022-11-07 16:44] LABS: Prothrombin Time 10.7 Seconds (9.0-12.0)
--- NOTE | 2022-11-07 16:48 | XRay Report ---
XR chest 1V portable CLINICAL HISTORY: sob TECHNIQUE: Single frontal radiograph of the chest was obtained. Comparison: Comparison is made to chest radiograph 08/26/2022 FINDINGS: Dual lead pacemaker is seen. Cardiomegaly is noted. The lungs are clear. No evidence of pleural effus ion or pneumothorax. IMPRESSION: No acute chest disease. Cardiomegaly is noted. No evidence of pneumonia. ACT 112: Negative or not required by law. Electronically signed by: Isiah Hardy M.D. 11/07/2022 4:47 PM
--- NOTE | 2022-11-07 17:03 | CT Scan Report ---
CT cervical spine wo con CLINICAL HISTORY: fall TECHNIQUE: Multidetector row helical CT of the cervical spine was performed without administration of intravenous contrast. Coronal and sagittal reformations were obtained. Automated dose lowering techn iques and/or adjustment according to patient size were utilized for this exam. Comparison: None available at the time of this dictation. FINDINGS: No acute fractures or subluxations are identified. Degenerative changes are seen in the visualized sp ine. There is straightening of the cervical spine. Soft tissues are unremarkable. IMPRESSION: Straightening of the cervical spine which can be seen in muscle spasm. No evidence of fracture. ACT 112: Negative or not required by law. Electronically signed by: Isiah Hardy M.D. 11/07/2022 5:01 PM
--- NOTE | 2022-11-07 17:21 | History & Physical Report ---
Date of Service November 07, 2022 Assessment & Plan (1) Acute respiratory failure with hypoxia: Plan: Acute hypoxic respiratory failure due to acute on chronic congestive heart failure Hypoxic to mid 80s while in the ER With 5 to 6 pounds of weight gain, lower extremity swelling, elevated BNP on admission X-ray not overtly overloaded or with effusions, some pulmonary vascular congestion Nuclear stress test 06/2021: LVEF 50%, negative for inducible ischemia. PFTs 04/2022: FVC 73% predicted, FEV1 78% predicted, FEV1/FVC ratio 80. Mildly decreased FEV1/FVC with preserved ratio and no bronchodilator change, generally normal study. No evidence of overt restrictive/obstructive disease BNP elevated at 519 Patient is with increased leg swelling in the last week We will admit for mild CHF exacerbation with hypoxia, Lasix twice daily 17, trend BMP Fall Patient reports with standing was attempting to move a chair with wheels and slipped, denies chest pain/chest pressure/syncope/presyncope that led to her fall - CT-H: 1. No acute intracranial hemorrhage, no evidence of acute territorial infarction or other acute intracranial disease process.2. Prominent calcified lesion in the inner table of the calvarium may represent calcified meningioma or less likely osteoma. - CT-C spine: Straightening of the cervical spine which can be seen in muscle spasm. No evidence of fracture. Symptomatic care Atrial fibrillation EKG pending. Heart rate is regular by palpation on admission in the 60s, although on bedside telemetry P waves are not clearly apparent. Continue Eliquis Continue amiodarone Continue metoprolol No RVR on admission Treatment of CHF as otherwise noted Impaired fasting glucose Admitting glucose 123 Last A1c 6.1% No home antiglycemic's Will place on conservative SSI, add weight-based basal bolus if required and BSG's greater than 180 Goal BSG [id number] History of iron deficiency With restless leg, pramipexole continued. No anemia on admission. GERD Convert PPI to Protonix while inpatient Anxiety/depression Continue Lexapro Hypertension Continue candesartan DVT prophylaxis: Anticoagulated Diet: DM 2, heart healthy, low-salt Disposition: PCU for acute CHF with concurrent A-fib CODE STATUS: DNR/DNI (2) Diastolic heart failure: (3) Diabetes: (4) Hypertension: History of Present Illness Primary Care Provider: Elizabethcr Roman is a 77-year-old female with a past medical history of diastolic heart failure, SCC of the skin, cholecystectomy, hyperlipidemia, renal stones who presents to the hospital with acute hypoxic respiratory failure, weight gain, dyspnea on exertion, and suspected acute CHF. 4-5lb weight gain Had a fall, hit her head getting up from a desk. No lightheadedness/dizziness that led to the fall Conversational dyspnea 86% on RA Reports she was at her art desk and fidel tto roll chair backwards but got caught on the carpet and tipped over, and she went with it Denies orthopnea. Notes has had increasing exertion dyspnea last few days, has trouble walking her dogs. Worse in general since May, and seem sto be worse this week as well. Had COVID two week safter her pacemaker 'which bummed me out for a few weeks, but was getting better until this past week" +leg swelling last few days a little more than normal. No asymmetry. Did nish emedicines this morning. Not sure how much salt she gets, doesn't really watch. No soups, deli meats. Amiodarone moved to once daily. Lasix twice daily, doesnt know the dose Medical History: Reviewed Medications: Reviewed Surgical History: Reviewed Family history: Reviewed Allergies: Reviewed Social History: No tobacco/etoh Code Status: DNR/DNI, discussed at bedside Allergies Allergy/AdvReac Type Severity Reaction Status Date / Time JOSE Inhibitors AdvReac Mild COUGH Verified 11/03/22 09:07 Home Medications Medication Instructions Recorded Confirmed Type escitalopram oxalate 20 mg tablet 20 mg PO QAM 02/15/19 11/03/22 History alprazolam 0.5 mg tablet 0.5 mg PO DAILY PRN Anxiety 02/20/19 11/07/22 History cholestyramine-aspartame 4 gram 4 gm PO BID 02/20/19 11/03/22 History oral powder (Prevalite) pramipexole 0.5 mg tablet (Mirapex) 0.5 mg PO BID 02/20/19 11/03/22 History potassium citrate 10 mEq (1,080 2,160 mg PO BID 11/07/19 11/03/22 History mg) tablet,extended release coenzyme Q10 100 mg capsule 100 mg PO QPM 02/16/20 11/03/22 History multivitamin 1 tab PO QPM 02/16/20 11/03/22 History rosuvastatin 40 mg tablet (Crestor) 40 mg PO HS 03/08/20 11/03/22 History candesartan 8 mg tablet 8 mg PO QAM 10/23/21 11/07/22 History sucralfate 1 gram tablet 1 g PO TID 04/27/22 11/03/22 History metoprolol succinate 25 mg 37.5 mg PO BID 04/29/22 11/03/22 History tablet,extended release 24 hr amiodarone 200 mg tablet 200 mg PO BID 08/25/22 11/07/22 History furosemide 40 mg tablet 20 mg PO QPM 08/25/22 11/03/22 History furosemide 40 mg tablet 40 mg PO QAM 08/25/22 11/03/22 History omeprazole 40 mg capsule,delayed 40 mg PO QPM 08/25/22 11/03/22 History release apixaban 5 mg tablet (Eliquis) 5 mg PO BID 11/07/22 11/07/22 History Past Med/Surg History Medical History (Updated 11/07/22 @ 17:37 by Arsen Johnson MD) Anxiety Atrial fibrillation newly dx, May 2022. following with Dr Bacon & Dr Jacob. Depression Diastolic heart failure Per records DM type 2 (diabetes mellitus, type 2) NIDDM - unable to tolerate the metformin, currently diet regulated and monitoring currently. GERD (gastroesophageal reflux disease) Hiatal hernia History of basal cell carcinoma History of nephrolithiasis History of squamous cell carcinoma Hyperlipidemia Hypertension ORTEGA (obstructive sleep apnea) Mild per records Renal cyst RLS (restless legs syndrome) Stress incontinence Tachy-nguyễn syndrome Borderline per cardio records Surgical History History of appendectomy History of basal cell carcinoma (BCC) excision History of cardiac catheterization approx 10 years ago - [facility] - failed stress test - no stents/angioplasty History of cataract surgery History of cholecystectomy 2020 History of colonoscopy History of esophagogastroduodenoscopy (EGD) History of hysterectomy History of lithotripsy History of non-cataract eye surgery History of squamous cell carcinoma excision History of tonsillectomy Nausea and vomiting after administration of anesthetic agent Family History Father Cancer Hypertension Diabetes Other No family history of adverse response to anesthesia No significant family history Social History Smoking Status: Never smoker Second Hand Exposure: No; Do You Dip or Chew Tobacco: No; Hx Alcohol Use: No Hx Substance Use: No Preferred Language: Georgian Communication Ability: Effective Powder Operator Required: No Beliefs That Will Affect Care: None marital status: / Current Living Situation: Alone Current Living Situation Comment: [facility] - independent living current occupational status: retired 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 NAD. Cooperative. HEENT: Atraumatic, normocephalic. Vision/hearing intact. Pulm: CTAB A&P. -wheezes, -rales, -rhonchi. +bibasilar crackles. Symmetrical chest rise. No increased work of breathing. No respiratory distress. Cardiac: regular rate, 60s on admit. -mrg. Radial pulses intact and symmetrical. Abdominal: Nontender, nondistended, soft. BS present. Ext: 1+ pitting edema of the LE extremities bilaterally. Move all extremities equally Results & Data Results & Data Vital Signs (Past 12 Hours) Vital Signs Temp Pulse Resp BP Pulse Ox O2 Del Method 11/07/22 16:25 64 11/07/22 16:01 Room Air 11/07/22 16:01 Room Air 11/07/22 15:12 36.7 C 85 20 147/77 H 86 L Room Air PG Care Time/CCT Total # of Minutes Spent Total Time Spent with Patient: Total time spent is greater than 50% in coordination of care (as documented) at patient's floor/unit and/or counseling patient: Coding Level of Care Code 74352 INT INP/OBS CARE 2/55MIN Diagnoses Acute respiratory failure with hypoxia J96.01 Diastolic heart failure I50.30 Diabetes E11.9 Hypertension I10
[2022-11-07] MEDS ORDERED: ALPRAZolam 0.5 MG TABLET PO PRN (17:57)
[2022-11-07] MEDS ORDERED: MoRPHine SULFATE 2 MG/ML CARP IV PRN (19:58)
[2022-11-07] MEDS: METOPROLOL SUCC 25MG EXT REL TAB PO SCH (20:24)
[2022-11-07] MEDS: POTASSIUM CITRATE 10 MEQ TAB PO SCH (20:24)
[2022-11-07] MEDS: PRAMIPEXOLE DIHYDROCHLO 0.5 MG TAB PO SCH (20:24)
[2022-11-07] MEDS: APIXABAN 5 MG TABLET PO SCH (20:24)
[2022-11-07] MEDS ORDERED: ROSUVASTATIN CALCIUM 20 MG TAB PO SCH (21:00)
[2022-11-07] MEDS ORDERED: PANTOprazole 40 MG TAB PO SCH (21:00)
[2022-11-08 05:43] LABS: Basophils % (auto) 1.9 %; Eosinophils # (auto) 0.35 K/uL (0-0.50); Eosinophils % (auto) 6.7 %; Hematocrit (blood only) 37.1 % (37.0-47.0); Hemoglobin 11.7 g/dl (12.0-16.0); Immature Granulocytes # (auto) 0.01 K/uL (0.01-0.20); Immature Granulocytes % (auto) 0.2 %; Lymphocytes # (auto) 1.25 K/uL (1.2-3.4); Mean Corpuscular Hemoglobin 30.2 pg (25.0-34.0); Mean Corpuscular Hgb Conc 31.5 g/dL (32.0-36.0); Mean Corpuscular Volume 95.6 fL (80.0-100.0); Mean Platelet Volume 10.9 fL (9.4-12.4); Monocytes # (auto) 0.57 K/uL (0.11-0.59); Monocytes % (auto) 10.9 %; Neutrophils # (auto) 2.93 K/uL (1.40-6.50); Neutrophils % (auto) 56.3 %; Platelet Count 137 K/uL (130-400); RDW Coefficient of Variation 14.2 % (11.5-14.5); RDW Standard Deviation 49.7 fL (36.4-46.3); Red Blood Count 3.88 M/uL (4.20-5.40); White Blood Count 5.21 K/ul (4.8-10.8)
[2022-11-08 06:00] LABS: Calcium 8.8 mg/dl (8.6-10.3); Creatinine Clr Calc Pharmacy 40.7 ml/min; Est GFR (African American) 50.1 ml/min; Est GFR (Non-African American) 43.3 ml/min; Potassium 4.5 mmol/L (3.5-5.1)
--- NOTE | 2022-11-08 08:42 | Hospitalist Progress Note ---
Date of Service November 08, 2022 Assessment & Plan (1) Acute respiratory failure with hypoxia: Plan: Acute hypoxic respiratory failure due to acute on chronic diastolic congestive heart failure Hypoxic to mid 80s while in the ER prehospital weight gain and pulmonary vascular congestion on CXR BNP elevated at 519 , Lasix twice daily low salt diet follow weight and renal function Atrial fibrillation chronic stable and rate controlled Continue Eliquis amiodarone metoprolol Hypertension Continue candesartan Mechanical Fall - CT-H: 1. No acute intracranial hemorrhage, no evidence of acute territorial infarction or other acute intracranial disease process.2. Prominent calcified lesion in the inner table of the calvarium may represent calcified meningioma or less likely osteoma. - CT-C spine: Straightening of the cervical spine which can be seen in muscle spasm. No evidence of fracture. Symptomatic care Impaired fasting glucose Admitting glucose 123 Last A1c 6.1% No home antiglycemic's Will place on conservative SSI, add weight-based basal bolus if required and BSG's greater than 180 Goal BSG [id number] History of iron deficiency With restless leg, pramipexole continued. No anemia on admission. GERD Convert PPI to Protonix while inpatient Anxiety/depression Continue Lexapro DVT prophylaxis: Anticoagulated CODE STATUS: DNR/DNI (2) Diastolic heart failure: (3) Diabetes: (4) Hypertension: Admission and Anticipated Discharge Date Admission Date: November 07, 2022 Results & Data Results & Data Vital Signs (Past 12 Hours) Vital Signs Temp Pulse Pulse Pulse Resp BP Pulse Ox 11/08/22 08:10 97.9 F 61 16 116/71 92 11/08/22 03:00 98.1 F 60 18 108/64 92 11/07/22 23:00 98.1 F 63 16 108/67 93 11/07/22 22:34 60 O2 Del Method 11/08/22 08:10 Room Air 11/08/22 03:00 Room Air 11/07/22 23:00 Room Air 11/07/22 22:34 PG Care Time/CCT Total # of Minutes Spent Total Time Spent with Patient: Total time spent is greater than 50% in coordination of care (as documented) at patient's floor/unit and/or counseling patient: Coding Diagnoses Acute respiratory failure with hypoxia J96.01 Diastolic heart failure I50.30 Diabetes E11.9 Hypertension I10
[2022-11-08] MEDS ORDERED: AMIODARONE 200 MG TAB PO SCH (09:00)
[2022-11-08] MEDS ORDERED: FUROSEMIDE 40 MG/4 ML VIAL IV SCH (09:00)
[2022-11-08] MEDS ORDERED: ESCITALOPRAM OXALATE 20 MG TAB PO SCH (09:00)
[2022-11-08] MEDS ORDERED: LOSARTAN POTASSIUM 25 MG TAB PO SCH (09:00)
[2022-11-08] MEDS: PRAMIPEXOLE DIHYDROCHLO 0.5 MG TAB PO SCH (09:55)
[2022-11-08] MEDS: POTASSIUM CITRATE 10 MEQ TAB PO SCH (09:55)
[2022-11-08] MEDS: METOPROLOL SUCC 25MG EXT REL TAB PO SCH (09:55)
[2022-11-08] MEDS: APIXABAN 5 MG TABLET PO SCH (09:56)
--- NOTE | 2022-11-08 13:03 | Discharge Summary ---
Date of Service November 08, 2022 Admission HPI Per Admitting Provider Jessie is a 77-year-old female with a past medical history of diastolic heart failure, SCC of the skin, cholecystectomy, hyperlipidemia, renal stones who presents to the hospital with acute hypoxic respiratory failure, weight gain, dyspnea on exertion, and suspected acute CHF. 4-5lb weight gain Had a fall, hit her head getting up from a desk. No lightheadedness/dizziness that led to the fall Conversational dyspnea 86% on RA Reports she was at her art desk and fidel tto roll chair backwards but got caught on the carpet and tipped over, and she went with it Denies orthopnea. Notes has had increasing exertion dyspnea last few days, has trouble walking her dogs. Worse in general since May, and seem sto be worse this week as well. Had COVID two week safter her pacemaker 'which bummed me out for a few weeks, but was getting better until this past week" +leg swelling last few days a little more than normal. No asymmetry. Did nish emedicines this morning. Not sure how much salt she gets, doesn't really watch. No soups, deli meats. Amiodarone moved to once daily. Lasix twice daily, doesnt know the dose Medical History: Reviewed Medications: Reviewed Surgical History: Reviewed Family history: Reviewed Allergies: Reviewed Social History: No tobacco/etoh Code Status: DNR/DNI, discussed at bedside Principal Diagnosis Mechanical fall while on systemic anticoagulation Scalp contusion Acute on chronic diastolic heart failure Discharge Exam Awake alert appropriate. Scalp contusion is not significant. Cardiac exam is regular rate controlled lungs are clear extremities are with trace edema Neurologically no deficits Discharge Data Allergies Allergy/AdvReac Type Severity Reaction Status Date / Time JOSE Inhibitors AdvReac Mild COUGH Verified 11/07/22 17:49 Consultations 11/07/22 17:05 ED Decision to Admit Stat Ordered Studies 11/07/22 15:27 CT cervical spine wo con Stat CT head/brain wo con Stat Hospital Course (1) Acute respiratory failure with hypoxia: Acute hypoxic respiratory failure due to acute on chronic diastolic congestive heart failure Hypoxic to mid 80s while in the ER improved dramatically with increased diuresis hypoxia now resolved prehospital weight gain and pulmonary vascular congestion on CXR BNP elevated at 519 , Increase daily Lasix to 40 twice daily reinforced low-salt diet for which she has not previously been following follow-up closely with outpatient [facility] heart failure clinic, patient has [facility] cardiology follow-up the week of discharge Atrial fibrillation chronic stable and rate controlled Continue Eliquis amiodarone metoprolol Hypertension Continue candesartan Mechanical Fall - CT-H: 1. No acute intracranial hemorrhage, no evidence of acute territorial infarction or other acute intracranial disease process.2. Prominent calcified lesion in the inner table of the calvarium may represent calcified meningioma or less likely osteoma. - CT-C spine: Straightening of the cervical spine which can be seen in muscle spasm. No evidence of fracture. Symptomatic care no concern for concussion at this time or intracranial abnormalities Impaired fasting glucose Admitting glucose 123 Last A1c 6.1 History of iron deficiency With restless leg, pramipexole continued. No anemia on admission. GERD Continue PPI as an outpatient may discontinue sucralfate at this time in case it is interfering with absorption of medications Anxiety/depression Continue Lexapro CODE STATUS: DNR/DNI (2) Diastolic heart failure: (3) Diabetes: (4) Hypertension: Total Time Total Time Spent Total Time Spent (In Minutes): It required greater than 30 minutes to prepare this patient for discharge Discharge Plan Discharge Items Patient Disposition: Home - Self-Care Reason For Visit: FELL, LUMP ON BACK OF HEAD,BLOOD THINNERS Discharge Diagnosis: Mechanical fall Scalp contusion on anticoagulation Acute on chronic diastolic heart failure Activity: Per Instructions section Activity Comment: Gradually increase activity Non-emergency contact: Primary Care Provider and School Traffic Guard Call non-emergency contact if: your symptoms worsen Follow-up/Referrals: Cynthia Cummings [Primary Care Provider] - Diet: Low Sodium (2gm) Addtl Attending Provider Instructions: Is important you eat a low-salt diet adhere to medication changes with follow-up with cardiology. WEIGHT * Weigh yourself every morning after using the bathroom. * Use the same scale. * Wear the same amount of clothing. * Write your weight down on your chart. * Call your doctor if you gain more than 2-3 pounds in 1-2 days. MEDICATIONS * Use this discharge instruction sheet for instructions. * Take your medications at the time your doctor ordered. * Do not skip a dose of your medicines. * If you miss a dose of medicine, take as soon as possible, but DO NOT DOUBLE A DOSE. * Read your medicine information when you get home. * Know all of the side effects of your medicine. * Call your doctor's office if you have any side effects. Take the following with you to your follow-up doctor appointments: * Weight Chart * Medication List * List of questions Do not drink excessive alcohol, beer or wine. Only drink liquids when you are thirsty do not need a comprehensive amount of liquids in a given day Pending Studies at Discharge: No Stand-Alone Forms: My [facility], Smoking Cessation Medications and DC Order Prescriptions: Continued escitalopram oxalate 20 mg tablet 20 mg PO QAM pramipexole [Mirapex] 0.5 mg tablet 0.5 mg PO BID alprazolam 0.5 mg tablet 0.5 mg PO DAILY PRN (Reason: Anxiety) Prevalite 4 gram powder 4 gm PO BID potassium citrate 10 mEq (1,080 mg) tablet extended release 2,160 mg PO BID coenzyme Q10 100 mg capsule 100 mg PO QPM multivitamin Tablet 1 tab PO QPM metoprolol succinate 25 mg tablet extended release 24 hr 37.5 mg PO BID candesartan 8 mg tablet 8 mg PO QAM rosuvastatin [Crestor] 40 mg Tablet 40 mg PO HS omeprazole 40 mg Capsule,Delayed Release(Dr/Ec) 40 mg PO QPM amiodarone 200 mg Tablet 200 mg PO BID Eliquis 5 mg tablet 5 mg PO BID Changed furosemide 40 mg Tablet 40 mg PO BID Qty: 60 0RF Discontinued sucralfate 1 gram tablet 1 g PO TID furosemide 40 mg Tablet 20 mg PO QPM Discharge Orders: Discharge Order- CHF (Routine); Ordered 11/08/22 Ordered By: Yung Delgado Admission Data Admit Date/Time: 11/07/22 17:40 Attending Provider: Yung Delgado Admit Provider: Arsen Johnson Primary Care Provider: Cynthia Cummings Other Providers: Arsen Johnson Coding Level of Care Code 09599 INP/OBS DISCH >30 MIN Diagnoses Acute respiratory failure with hypoxia J96.01 Diastolic heart failure I50.30 Diabetes E11.9 Hypertension I10
--- NOTE | 2022-11-10 07:39 | Electrocardiogram Report ---
Test Reason : Blood Pressure : / mmHG Vent. Rate : 060 BPM Atrial Rate : 060 BPM P-R Int : 172 ms QRS Dur : 100 ms QT Int : 458 ms P-R-T Axes : 000 -30 -32 degrees QTc Int : 458 ms AV dual-paced rhythm Abnormal ECG When compared with ECG of 26-AUG-2022 12:12, Vent. rate has decreased BY 10 BPM Confirmed by Kane Murdock ([id number]) on 11/10/2022 7:38:52 AM Referred By: REFERRED SELF Confirmed By:Kane Murdock
== END 2022-11-08 14:30 | disposition home or self-care (01) ==
LOC: ED 15:07 → 4W 15:07 → SUATTDRO 17:40 → 4W 18:56

== ENCOUNTER 2024-05-04 16:31 | Inpatient (IN) ==
[2024-05-04 17:13] LABS: Basophils # (auto) 0.07 K/uL (0.00-0.20); Basophils % (auto) 1.3 %; Eosinophils # (auto) 0.33 K/uL (0.00-0.50); Hematocrit (blood only) 34.1 % (37.0-47.0); Hemoglobin 10.1 g/dl (12.0-16.0); Immature Granulocytes # (auto) 0.03 K/uL (0.01-0.20); Immature Granulocytes % (auto) 0.5 %; Lymphocytes # (auto) 1.18 K/uL (1.20-3.40); Lymphocytes % (auto) 21.4 %; Mean Corpuscular Hemoglobin 26.6 pg (25.0-34.0); Mean Corpuscular Hgb Conc 29.6 g/dL (32.0-36.0); Mean Corpuscular Volume 89.7 fL (80.0-100.0); Mean Platelet Volume 10.9 fL (9.4-12.4); Monocytes # (auto) 0.73 K/uL (0.11-0.59); Monocytes % (auto) 13.2 %; Neutrophils # (auto) 3.17 K/uL (1.40-6.50); Neutrophils % (auto) 57.6 %; Platelet Count 174 K/uL (130-400); RDW Coefficient of Variation 14.9 % (11.5-14.5); RDW Standard Deviation 48.8 fL (36.4-46.3); White Blood Count 5.51 K/ul (4.8-10.8)
[2024-05-04 17:31] LABS: Albumin Globulin Ratio 2.3 (0.9-2); Albumin Level 4.1 gm/dl (3.4-5.0); BUN Creatinine Ratio 24.8 (10-20); Bilirubin,Total 0.4 mg/dl (0.2-1.0); Calcium 8.6 mg/dl (8.6-10.3); Creatinine Clr Calc Pharmacy 50.8 ml/min; Globulin 1.8 gm/dl (2.5-4.0); Magnesium 2.2 mg/dl (1.7-2.4); Potassium 4.7 mmol/L (3.5-5.1); Total Protein 5.9 gm/dl (6.0-8.3)
[2024-05-04 17:38] LABS: Troponin I High Sensitivity 8.6 pg/ml (0-14)
--- NOTE | 2024-05-04 17:43 | Emergency Department Note ---
Impression & Plan Chest pain, Acute exacerbation of CHF (congestive heart failure), Elevated brain natriuretic peptide (BNP) level ED Provider Note HISTORY OF PRESENT ILLNESS: Patient is a 78-year-old female presenting with left-sided chest pain that radiated into her left shoulder and left neck. She states that symptoms started when she woke up this morning. She describes the pain as a pressure-like sensation. States the pain has been on and off throughout the day today. Reports that she was getting her evening medications at [facility] and had complained about the symptoms and they did an EKG at [facility]. She states that given her symptoms she was referred to the emergency department for further evaluation. Patient denies chest pain on arrival to the emergency department. 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 She does state that she has been short of breath, but states this is her baseline given her history of heart failure. She is on Eliquis and Lasix daily. States that she has been having lower extremity edema for the last few months. She states that she does not think that the Lasix is working. Denies any nausea or vomiting. Denies any abdominal pain. She is chest pain-free on assessment in the emergency room. She has a pacemaker in place. Denies any history of cardiac stents. Denies any DVT or PE history. ROS: as above PHYSICAL EXAM: Constitutional: Patient appears in no acute distress. HENT: Head: Normocephalic and atraumatic. Eyes: EOMI, PERRL Mouth/Throat: Mucous membranes moist. Neck: Trachea midline. Neck supple. Cardiovascular: Paced rhythm. No murmurs, rubs or gallops. Intact distal pulses. Pulmonary/Chest: No respiratory distress. Breath sounds clear and equal bilaterally. No wheezes or rales. Patient is conversationally dyspneic. Abdominal: Abdomen soft, no tenderness, rebound or guarding. Musculoskeletal: No tenderness or deformity noted. +1 pitting edema of bilateral lower extremities extending to knees. Skin: Warm and dry. No rash, erythema, pallor or cyanosis Psychiatric: Appropriate mood and affect for situation. Neurological: Alert and keenly responsive. CN II-XII grossly intact, moving all extremities equally and fully. MDM: - Vitals signs showed hypertension. - History obtained via patient. History as above. - Chronic conditions affecting care: DM-2; GERD; Afib; HTN; HLD - Differential diagnoses include, but are not limited to: Acute coronary syndrome; pulmonary embolism; dissection; tension pneumothorax; esophageal rupture; pneumonia - Order placed for continuous cardiac monitoring. At this time, monitor showed rate of 68 bpm with paced rhythm, per my interpretation. - External medical records reviewed. Cardiac catheterization dated 03/05/2023 was reviewed. Patient was found to have mild CAD and elevated intracardiac pressures. Noted to have no high risk for obstructive CAD as a source for patient's dyspnea at the time. - EKG interpreted by myself showed paced rhythm. Rate 61 bpm. QT 470. No acute ischemic changes. - Laboratory workup interpreted by myself showed normal WBC; chronic anemia (Hgb 10.1); normal PT/INR; stable electrolytes; normal troponin; normal lipase; elevated BNP (491) - CXR shows pulmonary vascular congestion, per my interpretation. - Repeat troponin within normal limits - Given 40 mg IV lasix in ER. - Discussion was had with rn case management about patient's case and need for admission - Hospitalist consulted for admission - Patient admitted to [facility] for further evaluation and management. ASSESSMENT AND PLAN: Diagnosis: chest pain; acute CHF exacerbation; elevated BNP Plan: admit Past Med/Surg History Problem List (Updated 05/04/24 @ 19:39 by Alesia Delatorre MD) Elevated brain natriuretic peptide (BNP) level (Acute) Acute exacerbation of CHF (congestive heart failure) (Acute) Chest pain (Acute) Diabetic ulcer of left great toe (Acute) Callus of toe (Acute) Personal history of diabetic foot ulcer Loss of protective sensation of skin of foot Diabetic peripheral neuropathy associated with type 2 diabetes mellitus DM type 2 (diabetes mellitus, type 2) NIDDM - unable to tolerate the metformin, currently diet regulated and monitoring currently. Atrial fibrillation newly dx, May 2022. following with Dr Bacon & Dr Jacob. ORTEGA (obstructive sleep apnea) Mild per records Hypertension (Chronic) Anxiety and depression Hyperlipidemia Chronic cholecystitis Pulmonary nodule Medical History (Updated 05/04/24 @ 19:39 by Alesia Delatorre MD) Diabetes mellitus Diabetic foot ulcer Diabetic neuropathy Pacemaker Hiatal hernia GERD (gastroesophageal reflux disease) Stress incontinence RLS (restless legs syndrome) Renal cyst History of nephrolithiasis History of squamous cell carcinoma History of basal cell carcinoma Surgical History (Updated 02/11/24 @ 09:20 by Kerrie Mohan RN) S/P hernia repair History of esophagogastroduodenoscopy (EGD) History of cholecystectomy 2020 History of non-cataract eye surgery History of cataract surgery History of tonsillectomy History of lithotripsy History of colonoscopy History of hysterectomy History of appendectomy Family History Father Cancer Hypertension Diabetes Other No family history of adverse response to anesthesia No significant family history Social History (Updated 02/11/24 @ 09:24 by Kerrie Mohan RN) Smoking Status: Never smoker Second Hand Exposure: Yes (spouse used to smoke alot); Do You Dip or Chew Tobacco: No; Hx Alcohol Use: No Hx Substance Use: No Preferred Language: [place]al[place] Communication Ability: Effective Visual Impairment: Limited Hearing Ability: Normal Cardiac Technologist Required: No Beliefs That Will Affect Care: None marital status: / Current Living Situation: Alone Current Living Situation Comment: [place] current occupational status: retired 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 How many Children do You have: 0 Feels Safe at Home: Yes Diet: diabetic and ideal protein during the past year weight has: remained stable Assistive Devices: Glasses Allergies Allergies Allergy/AdvReac Type Severity Reaction Status Date / Time JOSE Inhibitors AdvReac Mild COUGH Verified 03/31/24 09:27 Home Meds Home Medications Medication Instructions Recorded Confirmed escitalopram oxalate 20 mg tablet 20 mg PO QAM 02/15/19 03/31/24 alprazolam 0.5 mg tablet 0.5 mg PO DAILY PRN Anxiety 02/20/19 03/31/24 cholestyramine-aspartame 4 gram 4 gm PO BID 02/20/19 03/31/24 oral powder (Prevalite) pramipexole 0.5 mg tablet (Mirapex) 0.5 mg PO BID 02/20/19 03/31/24 potassium citrate 10 mEq (1,080 2,160 mg PO BID 11/07/19 03/31/24 mg) tablet,extended release coenzyme Q10 100 mg capsule 100 mg PO QPM 02/16/20 03/31/24 multivitamin 1 tab PO QPM 02/16/20 03/31/24 rosuvastatin 40 mg tablet (Crestor) 40 mg PO HS 03/08/20 03/31/24 candesartan 8 mg tablet 8 mg PO QAM 10/23/21 03/31/24 amiodarone 200 mg tablet 200 mg PO BID 08/25/22 03/31/24 omeprazole 40 mg capsule,delayed 40 mg PO QPM 08/25/22 03/31/24 release apixaban 5 mg tablet (Eliquis) 5 mg PO BID 11/07/22 03/31/24 levothyroxine 50 mcg tablet 75 mcg PO DAILY 05/28/23 03/31/24 metoprolol succinate 25 mg 50 mg PO BID 05/28/23 03/31/24 tablet,extended release 24 hr magnesium aspart,citrate,oxide mg PO 12/17/23 03/31/24 fluticasone fur. 100 mcg-umeclid 1 inh inhalation DAILY 02/11/24 03/31/24 62.5 mcg-vilant 25 mcg inhalat.powder (Trelegy Ellipta) Previous Rx's Medication Instructions Recorded furosemide 40 mg tablet 40 mg PO BID #60 tabs 11/08/22 Results & Data (ED) Vital Signs Vital Signs - 24 hr 05/04/24 16:42 05/04/24 16:42 05/04/24 16:55 Temperature 36.3 C L Temperature Source Oral Pulse Rate 63 62 65 Pulse Rate from SpO2 Sensor 62 Pulse Rhythm Irregular Pulse Strength Normal Respiratory Rate 18 19 Respiratory Effort / Characteristics Non-Labored Spontaneous Respiratory Depth Normal Respiratory Pattern Regular Blood Pressure 123/62 144/75 H Blood Pressure Mean 82 98 Blood Pressure Position Lying Pulse Oximetry 93 95 Oxygen Delivery Method Room Air Sepsis Recent Fever Within 48 Hours No Sepsis New/Unexplained Change in Mental Status No Sepsis Action Taken by Nursing No Action Required 05/04/24 17:03 05/04/24 17:03 Temperature Temperature Source Pulse Rate 67 Pulse Rate from SpO2 Sensor 67 Pulse Rhythm Pulse Strength Respiratory Rate 18 Respiratory Effort / Characteristics Respiratory Depth Respiratory Pattern Blood Pressure 144/75 H Blood Pressure Mean 98 Blood Pressure Position Pulse Oximetry 92 Oxygen Delivery Method Room Air Sepsis Recent Fever Within 48 Hours Sepsis New/Unexplained Change in Mental Status Sepsis Action Taken by Nursing Laboratory Data 05/04/24 16:48 05/04/24 16:48 Lab Results 05/04/24 05/04/24 05/04/24 Range/Units 16:48 17:30 18:52 WBC 5.51 (4.8-10.8) K/ul RBC 3.80 L (4.20-5.40) M/uL Hgb 10.1 L (12.0-16.0) g/dl Hct 34.1 L (37.0-47.0) % MCV 89.7 (80.0-100.0) fL MCH 26.6 (25.0-34.0) pg MCHC 29.6 L (32.0-36.0) g/dL RDW Std Deviation 48.8 H (36.4-46.3) fL RDW Coeff of Kamala 14.9 H (11.5-14.5) % Plt Count 174 (130-400) K/uL MPV 10.9 (9.4-12.4) fL Immature Gran % (Auto) 0.5 % Neut % (Auto) 57.6 % Lymph % (Auto) 21.4 % [place] % (Auto) 13.2 % Eos % (Auto) 6.0 % Baso % (Auto) 1.3 % Neut # (Auto) 3.17 (1.40-6.50) K/uL Lymph # (Auto) 1.18 L (1.20-3.40) K/uL [place] # (Auto) 0.73 H (0.11-0.59) K/uL Eos # (Auto) 0.33 (0.00-0.50) K/uL Baso # (Auto) 0.07 (0.00-0.20) K/uL Immature Gran # (Auto) 0.03 (0.01-0.20) K/uL PT 11.0 (9.0-12.0) Seconds INR 1.0 (0.9-1.1) Sodium 145 (136-145) mmol/L Potassium 4.7 (3.5-5.1) mmol/L Chloride 112 H (98-107) mmol/L Carbon Dioxide 27 (21-32) mmol/L Anion Gap 6 (3-11) BUN 26 H (6-23) mg/dl Creatinine 1.05 (0.6-1.2) mg/dl Est Cr Clr Drug Dosing 50.8 ml/min eGFR 54.05 BUN/Creatinine Ratio 24.8 H (10-20) Glucose 96 (70-99(Fasting)) mg/dl Calcium 8.6 (8.6-10.3) mg/dl Magnesium 2.2 (1.7-2.4) mg/dl Total Bilirubin 0.4 (0.2-1.0) mg/dl AST 23 (13-39) U/L ALT 18 (7-52) U/L Alkaline Phosphatase 67 (34-104) U/L Troponin I High Sens 8.6 9.1 (0-14) pg/ml B-Natriuretic Peptide 491 H (0-100) pg/ml Total Protein 5.9 L (6.0-8.3) gm/dl Albumin 4.1 (3.4-5.0) gm/dl Globulin 1.8 L (2.5-4.0) gm/dl Albumin/Globulin Ratio 2.3 H (0.9-2) Lipase 21 (11-82) U/L Administered Medications Discontinued Medications Furosemide (Furosemide 40 Mg/4 Ml Vial) 40 mg IV ONE ONE Stop: 05/04/24 19:14 Last Admin: 05/04/24 19:38 Dose: 40 mg Documented By: SASKIA Imaging Data Radiologist's Impression: Chest X-Ray 05/04/24 17:03 EXAM: X-ray chest one-view portable CLINICAL HISTORY: Chest pain PRIORS: 01/18/2024 TECHNIQUE: Portable upright AP chest FINDINGS: Lung volumes are mildly diminished. Left-sided cardiac pacing device unchanged. Mild prominence of the central pulmonary vasculature noted. No pleural effusion. Moderate enlargement of the heart size. No pneumothorax. Trachea is patent. Osseous structures demonstrate no acute abnormality. No radiopaque foreign body. IMPRESSION: Enlarged cardiac silhouette with prominence of the pulmonary vasculature may suggest volume overload Electronically signed by Clary Alas 05-04-2024 5:45 PM Discharge Plan Visit Data Chief Complaint: Chest Pain Stated Complaint: NECK [facility] JAW PAIN ED Provider: Alesia Delatorre Discharge Problem: Chest pain, Acute exacerbation of CHF (congestive heart failure), Elevated brain natriuretic peptide (BNP) level Forms Stand Alone Forms: SmartPill Prescriptions Prescriptions: No Action Trelegy Ellipta 100-62.5-25 mcg blister with device 1 inh inhalation DAILY escitalopram oxalate 20 mg tablet 20 mg PO QAM pramipexole [Mirapex] 0.5 mg tablet 0.5 mg PO BID alprazolam 0.5 mg tablet 0.5 mg PO DAILY PRN (Reason: Anxiety) Prevalite 4 gram powder 4 gm PO BID potassium citrate 10 mEq (1,080 mg) tablet extended release 2,160 mg PO BID coenzyme Q10 100 mg capsule 100 mg PO QPM multivitamin Tablet 1 tab PO QPM metoprolol succinate 25 mg tablet extended release 24 hr 50 mg PO BID candesartan 8 mg tablet 8 mg PO QAM magnesium aspart,citrate,oxide 400 mg magnesium capsule PO rosuvastatin [Crestor] 40 mg Tablet 40 mg PO HS levothyroxine 50 mcg tablet 75 mcg PO DAILY omeprazole 40 mg Capsule,Delayed Release(Dr/Ec) 40 mg PO QPM amiodarone 200 mg Tablet 200 mg PO BID Eliquis 5 mg tablet 5 mg PO BID furosemide 40 mg Tablet 40 mg PO BID Qty: 60 0RF Referrals Referrals: Cynthia Cummings [Primary Care Provider] -
[2024-05-04] MEDS: FUROSEMIDE 40 MG/4 ML VIAL IV ONE (19:38)
--- NOTE | 2024-05-04 20:29 | History & Physical Report ---
Date of Service May 04, 2024 Assessment & Plan (1) Acute exacerbation of CHF (congestive heart failure): (2) Atrial fibrillation: (3) ORTEGA (obstructive sleep apnea): (4) Hypertension: (5) DM type 2 (diabetes mellitus, type 2): Plan Acute exacerbation HFpEF/atrial fibrillation/hypertension- The patient will be admitted to telemetry for serial cardiac enzymes, serial EKG's, cardiac rhythm monitoring and a 2-D echocardiogram with Dopplers. Most recent echo on 01/25/2023 with ejection fraction 55-59% Status post furosemide 40 mg IV in the emergency department, with good response occurring Continue amiodarone 200 mg daily, Eliquis 5 mg p.o. twice daily, metoprolol succinate 25 mg every morning Resume potassium citrate twice daily in the a.m. Hold candesartan Continue mag oxide 40 mg p.o. every morning Resume furosemide 60 mg p.o. every morning and furosemide 40 mg p.o. every afternoon tomorrow Serial CBC with differential, renal function panel and magnesium levels in the a.m. Initial troponin 8.6, with follow-up 9.1 Diabetes mellitus- Diet controlled Glucose 96 on admission Check hemoglobin A1c Placed on Accu-Cheks with NovoLog SSI Hyperlipidemia- Continue rosuvastatin Check a fasting lipid panel ORTEGA/asthma- Characterize as mild Continue Trelegy Ellipta, and albuterol sulfate every 6 hours as needed If necessary, CPAP at bedtime History of Present Illness Chief Complaint: The patient presents to the emergency department with complaint of acute onset of left-sided pressure-like chest pain, with radiation to her left shoulder and neck that began upon awakening this morning. She reported the symptoms to nurses at [facility] when she was given her evening medications, who then did an EKG, and referred the patient to the ED for further assessment Primary Care Provider: [facility] The patient is a 78-year-old female with a past medical history including atrial fibrillation on chronic anticoagulation, HFpEF, diabetic peripheral neuropathy, hypertension, anxiety and depression, hyperlipidemia, and ORTEGA. She presents to the emergency department after developing left sided chest pressure with rad iation to left shoulder and left side of neck. In the emergency department, she was found to have chest x-ray suggestive of CHF, was given furosemide 40 mg IV by the ED, and then referred for evaluation for admission Allergies Allergy/AdvReac Type Severity Reaction Status Date / Time JOSE Inhibitors AdvReac Mild COUGH Verified 05/04/24 19:54 Home Medications Medication Instructions Recorded Confirmed Type escitalopram oxalate 20 mg tablet 20 mg PO QAM 02/15/19 05/04/24 History alprazolam 0.5 mg tablet 0.5 mg PO .UD PRN Anxiety 02/20/19 05/04/24 History cholestyramine-aspartame 4 gram 4 gm PO BID 02/20/19 05/04/24 History oral powder (Prevalite) potassium citrate 10 mEq (1,080 2,160 mg PO BID 11/07/19 05/04/24 History mg) tablet,extended release coenzyme Q10 100 mg capsule 200 mg PO QAM 02/16/20 05/04/24 History multivitamin 1 tab PO QPM 02/16/20 05/04/24 History rosuvastatin 40 mg tablet (Crestor) 40 mg PO HS 03/08/20 05/04/24 History amiodarone 200 mg tablet 200 mg PO DAILY 08/25/22 05/04/24 History omeprazole 40 mg capsule,delayed 40 mg PO QPM 08/25/22 05/04/24 History release apixaban 5 mg tablet (Eliquis) 5 mg PO BID 11/07/22 05/04/24 History fluticasone fur. 100 mcg-umeclid 1 inh inhalation QAM 02/11/24 05/04/24 History 62.5 mcg-vilant 25 mcg inhalat.powder (Trelegy Ellipta) albuterol sulfate 90 mcg/actuation 2 puff inhalation Q6H PRN 05/04/24 05/04/24 History aerosol inhaler Shortness Of Breath Or Wheezing candesartan 4 mg tablet 2 mg PO QAM 05/04/24 05/04/24 History furosemide 40 mg tablet 40 mg PO QPM 05/04/24 05/04/24 History furosemide 40 mg tablet 60 mg PO QAM 05/04/24 05/04/24 History levothyroxine 125 mcg tablet 125 mcg PO DAILYBB 05/04/24 05/04/24 History magnesium oxide 400 mg PO QAM 05/04/24 05/04/24 History metoprolol succinate 25 mg 25 mg PO QAM 05/04/24 05/04/24 History tablet,extended release 24 hr pramipexole 0.5 mg tablet 0.5 mg PO HS 05/04/24 05/04/24 History vit C 250 mg-vit E 90 mg-zinc 40 1 tab PO AMHS 05/04/24 05/04/24 History mg-copper 1 [id number] capsule (PreserVision AREDS-2) Past Med/Surg History Problem List (Updated 05/04/24 @ 19:39 by Alesia Delatorre MD) Elevated brain natriuretic peptide (BNP) level (Acute) Acute exacerbation of CHF (congestive heart failure) (Acute) Chest pain (Acute) Diabetic ulcer of left great toe (Acute) Callus of toe (Acute) Personal history of diabetic foot ulcer Loss of protective sensation of skin of foot Diabetic peripheral neuropathy associated with type 2 diabetes mellitus DM type 2 (diabetes mellitus, type 2) NIDDM - unable to tolerate the metformin, currently diet regulated and monitoring currently. Atrial fibrillation newly dx, May 2022. following with Dr Bacon & Dr Jacob. ORTEGA (obstructive sleep apnea) Mild per records Hypertension (Chronic) Anxiety and depression Hyperlipidemia Chronic cholecystitis Pulmonary nodule Medical History (Updated 05/04/24 @ 19:39 by Alesia Delatorre MD) Diabetes mellitus Diabetic foot ulcer Diabetic neuropathy Pacemaker Hiatal hernia GERD (gastroesophageal reflux disease) Stress incontinence RLS (restless legs syndrome) Renal cyst History of nephrolithiasis History of squamous cell carcinoma History of basal cell carcinoma Surgical History (Updated 02/11/24 @ 09:20 by Kerrie Mohan RN) S/P hernia repair History of esophagogastroduodenoscopy (EGD) History of cholecystectomy 2020 History of non-cataract eye surgery History of cataract surgery History of tonsillectomy History of lithotripsy History of colonoscopy History of hysterectomy History of appendectomy Family History Father Cancer Hypertension Diabetes Other No family history of adverse response to anesthesia No significant family history Social History (Updated 02/11/24 @ 09:24 by Kerrie Mohan RN) Smoking Status: Never smoker Second Hand Exposure: Yes (spouse used to smoke alot); Do You Dip or Chew Tobacco: No; Hx Alcohol Use: No Hx Substance Use: No Preferred Language: Czech Communication Ability: Effective Visual Impairment: Limited Hearing Ability: Normal Color Television Console Monitor Required: No Beliefs That Will Affect Care: None marital status: / Current Living Situation: Alone Current Living Situation Comment: [place] current occupational status: retired 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 How many Children do You have: 0 Feels Safe at Home: Yes Diet: diabetic and ideal protein during the past year weight has: remained stable Assistive Devices: Glasses Review of Systems Review of Systems: The patient denies palpitations, cough, lower extremity swelling, sore throat, fevers, chills, sweats, nausea, vomiting, diarrhea , constipation, abdominal pain, pelvic pain, blood in urine or stool, dysuria, urinary frequency or urgency, lightheadedness, dizziness, headache, memory loss, loss of consciousness, rash, abnormal bruising or bleeding, imbalance, focal weakness, numbness or tingling in arms or legs, generalized arthralgias or myalgias, back or neck pain, or night sweats. The review of systems is otherwise negative other than for that already noted above, and at least 10 systems have been reviewed. Physical Exam Physical Exam: The patient is awake, alert and oriented 3, well developed and well nourished, normocephalic and atraumatic, lying in bed and in no acute distress. HEENT--PERRL, EOMI, mucous membranes and oropharynx normal. Neck--supple. No JVD. No bruits. Thyroid normal, trachea midline, no adenopathy. Heart--normal S1 and S2. No murmurs, rubs or gallops. Lungs--crackles at the bases bilaterally. No respiratory distress, no accessory muscle use. Abdomen--normal bowel sounds and soft. Nontender. Nondistended, no hernias or masses, no organomegaly. Extremities--1+ bilateral pretibial pitting edema. Dermatologic--normal skin turgor, normal color, no abnormal lymph nodes, no rash. Neurologic--cranial nerves II through XII grossly intact. Rheumatologic--normal range of motion. Psychiatric--normal affect. Results & Data Results & Data Vital Signs (Past 12 Hours) Vital Signs Temp Pulse Resp BP Pulse Ox O2 Del Method 05/04/24 19:51 61 20 156/62 H 94 05/04/24 17:03 67 18 144/75 H 92 05/04/24 17:03 Room Air 05/04/24 16:55 36.3 C L 65 19 144/75 H 95 Room Air 05/04/24 16:42 62 18 123/62 93 05/04/24 16:42 63 Laboratory Results Laboratory Results WBC 5.51 K/ul (4.8-10.8) 05/04/24 16:48 RBC 3.80 M/uL (4.20-5.40) L 05/04/24 16:48 Hgb 10.1 g/dl (12.0-16.0) L 05/04/24 16:48 Hct 34.1 % (37.0-47.0) L 05/04/24 16:48 MCV 89.7 fL (80.0-100.0) 05/04/24 16:48 MCH 26.6 pg (25.0-34.0) 05/04/24 16:48 MCHC 29.6 g/dL (32.0-36.0) L 05/04/24 16:48 RDW Std Deviation 48.8 fL (36.4-46.3) H 05/04/24 16:48 RDW Coeff of Kamala 14.9 % (11.5-14.5) H 05/04/24 16:48 Plt Count 174 K/uL (130-400) 05/04/24 16:48 MPV 10.9 fL (9.4-12.4) 05/04/24 16:48 Immature Gran % (Auto) 0.5 % 05/04/24 16:48 Neut % (Auto) 57.6 % 05/04/24 16:48 Lymph % (Auto) 21.4 % 05/04/24 16:48 [place] % (Auto) 13.2 % 05/04/24 16:48 Eos % (Auto) 6.0 % 05/04/24 16:48 Baso % (Auto) 1.3 % 05/04/24 16:48 Neut # (Auto) 3.17 K/uL (1.40-6.50) 05/04/24 16:48 Lymph # (Auto) 1.18 K/uL (1.20-3.40) L 05/04/24 16:48 [place] # (Auto) 0.73 K/uL (0.11-0.59) H 05/04/24 16:48 Eos # (Auto) 0.33 K/uL (0.00-0.50) 05/04/24 16:48 Baso # (Auto) 0.07 K/uL (0.00-0.20) 05/04/24 16:48 Immature Gran # (Auto) 0.03 K/uL (0.01-0.20) 05/04/24 16:48 PT 11.0 Seconds (9.0-12.0) 05/04/24 16:48 INR 1.0 (0.9-1.1) 05/04/24 16:48 Sodium 145 mmol/L (136-145) 05/04/24 16:48 Potassium 4.7 mmol/L (3.5-5.1) 05/04/24 16:48 Chloride 112 mmol/L (98-107) H 05/04/24 16:48 Carbon Dioxide 27 mmol/L (21-32) 05/04/24 16:48 Anion Gap 6 (3-11) 05/04/24 16:48 BUN 26 mg/dl (6-23) H 05/04/24 16:48 Creatinine 1.05 mg/dl (0.6-1.2) 05/04/24 16:48 Est Cr Clr Drug Dosing 50.8 ml/min 05/04/24 16:48 eGFR 54.05 05/04/24 16:48 BUN/Creatinine Ratio 24.8 (10-20) H 05/04/24 16:48 Glucose 96 mg/dl (70-99(Fasting)) 05/04/24 16:48 Calcium 8.6 mg/dl (8.6-10.3) 05/04/24 16:48 Magnesium 2.2 mg/dl (1.7-2.4) 05/04/24 16:48 Total Bilirubin 0.4 mg/dl (0.2-1.0) 05/04/24 16:48 AST 23 U/L (13-39) 05/04/24 16:48 ALT 18 U/L (7-52) 05/04/24 16:48 Alkaline Phosphatase 67 U/L (34-104) 05/04/24 16:48 Troponin I High Sens 9.1 pg/ml (0-14) 05/04/24 18:52 B-Natriuretic Peptide 491 pg/ml (0-100) H 05/04/24 17:30 Total Protein 5.9 gm/dl (6.0-8.3) L 05/04/24 16:48 Albumin 4.1 gm/dl (3.4-5.0) 05/04/24 16:48 Globulin 1.8 gm/dl (2.5-4.0) L 05/04/24 16:48 Albumin/Globulin Ratio 2.3 (0.9-2) H 05/04/24 16:48 Lipase 21 U/L (11-82) 05/04/24 16:48 Impressions Chest X-Ray 05/04/24 17:03 EXAM: X-ray chest one-view portable CLINICAL HISTORY: Chest pain PRIORS: 01/18/2024 TECHNIQUE: Portable upright AP chest FINDINGS: Lung volumes are mildly diminished. Left-sided cardiac pacing device unchanged. Mild prominence of the central pulmonary vasculature noted. No pleural effusion. Moderate enlargement of the heart size. No pneumothorax. Trachea is patent. Osseous structures demonstrate no acute abnormality. No radiopaque foreign body. IMPRESSION: Enlarged cardiac silhouette with prominence of the pulmonary vasculature may suggest volume overload Electronically signed by Clary Alas 05-04-2024 5:45 PM Code Status & VTE Plan Code Status DNR/DNI VTE Prophylaxis Plan VTE Prophylaxis will be ordered: Yes PG Care Time/CCT Total # of Minutes Spent Total Time Spent with Patient: Total time spent is greater than 50% in coordination of care (as documented) at patient's floor/unit and/or counseling patient: Coding Level of Care Code 97999 INT INP/OBS CARE 3/75MIN Diagnoses Acute exacerbation of CHF (congestive heart failure) I50.9 Atrial fibrillation I48.91 ORTEGA (obstructive sleep apnea) G47.33 Hypertension I10 DM type 2 (diabetes mellitus, type 2) E11.9
[2024-05-04] MEDS ORDERED: DEXTROSE 50% 50 ML SYRINGE IV PRN (23:17)
[2024-05-04] MEDS ORDERED: GLUCOSE 40% GEL 15 GM TUBE PO PRN (23:17)
[2024-05-04] MEDS ORDERED: GLUCOSE 10 TAB/TUBE PO PRN (23:17)
[2024-05-04] MEDS ORDERED: ACETAMINOPHEN 325 MG TAB PO PRN (23:17)
[2024-05-04] MEDS ORDERED: CARBOHYDRATES FOR HYPOGLYCEMIA PO PRN (23:17)
[2024-05-04] MEDS ORDERED: GLUCAGON FOR INJ 1 MG VIAL SQ PRN (23:17)
[2024-05-04] MEDS ORDERED: NON-FORMULARY MEDICATION (Coenzyme Q10 100 mg capsule) PO SCH (23:17)
[2024-05-04] MEDS: INSULIN ASPART PER UNIT CHARGE SC SCH (23:39)
[2024-05-04] MEDS: APIXABAN 5 MG TABLET PO SCH (23:47)
[2024-05-04] MEDS: PANTOprazole 40 MG TAB PO SCH (23:48)
[2024-05-04] MEDS: MULTIVITAMIN TAB PO SCH (23:48)
[2024-05-04] MEDS: PRAMIPEXOLE DIHYDROCHLO 0.5 MG TAB PO SCH (23:48)
[2024-05-04] MEDS: ROSUVASTATIN CALCIUM 20 MG TAB PO SCH (23:49)
[2024-05-05 05:05] LABS: Basophils # (auto) 0.06 K/uL (0.00-0.20); Basophils % (auto) 1.2 %; Eosinophils # (auto) 0.34 K/uL (0.00-0.50); Hematocrit (blood only) 31.8 % (37.0-47.0); Hemoglobin 9.6 g/dl (12.0-16.0); Immature Granulocytes # (auto) 0.02 K/uL (0.01-0.20); Immature Granulocytes % (auto) 0.4 %; Lymphocytes # (auto) 1.13 K/uL (1.20-3.40); Lymphocytes % (auto) 23.2 %; Mean Corpuscular Hemoglobin 26.5 pg (25.0-34.0); Mean Corpuscular Hgb Conc 30.2 g/dL (32.0-36.0); Mean Corpuscular Volume 87.8 fL (80.0-100.0); Mean Platelet Volume 11.2 fL (9.4-12.4); Monocytes # (auto) 0.59 K/uL (0.11-0.59); Monocytes % (auto) 12.1 %; Neutrophils # (auto) 2.73 K/uL (1.40-6.50); Neutrophils % (auto) 56.1 %; Platelet Count 161 K/uL (130-400); RDW Coefficient of Variation 14.7 % (11.5-14.5); RDW Standard Deviation 47.7 fL (36.4-46.3); Red Blood Count 3.62 M/uL (4.20-5.40); White Blood Count 4.87 K/ul (4.8-10.8)
[2024-05-05 05:21] LABS: Albumin Level 3.9 gm/dl (3.4-5.0); BUN Creatinine Ratio 25.3 (10-20); Calcium 8.4 mg/dl (8.6-10.3); Chol HDL Ratio 3.1 (0-5); Creatinine Clr Calc Pharmacy 56.1 ml/min; Magnesium 2.1 mg/dl (1.7-2.4); Phosphorus 4.6 mg/dl (2.5-4.9); Potassium 4.1 mmol/L (3.5-5.1)
[2024-05-05 05:27] LABS: Troponin I High Sensitivity 10.1 pg/ml (0-14)
[2024-05-05] MEDS: LEVOTHYROXINE SODIUM 125 MCG TABLET PO SCH (06:07)
[2024-05-05 07:03] LABS: Estimated Average Glucose 131 mg/dl; Hemoglobin A1C 6.2 % (4.5-5.6)
[2024-05-05] MEDS: UMECLIDINIUM/VILANTEROL 62.5/25MCG 7 PUFFS/INHALER INH SCH (08:17)
[2024-05-05] MEDS: POTASSIUM CITRATE 10 MEQ TAB PO SCH (08:17)
[2024-05-05] MEDS: FLUTICASONE FUROATE 100MCG 14 PUFFS/INHALER INH SCH (08:17)
[2024-05-05] MEDS: METOPROLOL SUCC 25MG EXT REL TAB PO SCH (08:18)
[2024-05-05] MEDS: FUROSEMIDE 20 MG TAB PO SCH (08:18)
[2024-05-05] MEDS: ESCITALOPRAM OXALATE 20 MG TAB PO SCH (08:18)
[2024-05-05] MEDS: AMIODARONE 200 MG TAB PO SCH (08:19)
--- OUTSIDE RECORDS SUMMARY | 2024-05-05 08:22 | External Medical Summary ---
Author Name Unknown Address Unknown Organization [id number]:[facility]ORATORY [facility] [place] - [facility] [address] [place] [id number] Laboratory Report Ordering Provider Test Date Status JHONATAN ROGERS 05/01/2024 10:46:06 Final Exclude Heart Failure: <300 pg/mL
Diagnose Heart Failure:
Age <50 yr: >450 pg/mL
50-75 yr: >900 pg/mL
>75 yr: >1800 pg/mL
GFR is 30-59 mL/min: >1200 pg/mL or Age- adjusted values
GFR <30 mL/min: do not use, not reliable

Prognostic threshold: 1000 pg/mL Observation Date Value Abnormality Reference (Units ) Status BNP, Pro-hormone 05/01/2024 10:46:06 912 Above high no rmal <300 (pg/mL) Final Performing Location [facility]ORY [facility] [place] - [facility] [address] [place] [id number]
--- OUTSIDE RECORDS SUMMARY | 2024-05-05 08:22 | External Medical Summary | Summary of Care ---
Author Name Unknown Organization [facility] Address [address] [place] [address] Phone [phone] Care Team Providers Care Radiology Director Name Role Phone Adams Mcallister MD Primary Care Provider [phone] Reason for Visit * Reason Comments Outpatient Testing Encounter Details Date Type Department Care Team (Late st Contact Info) Description 05/01/2024 10:50 AM EST Laboratory Laboratory, [facility] [address] [place] [id number] [facility] [address] [place] [address] Paroxysmal atrial fibrillation (HCC); Chronic heart failure with preserved ejection fraction (HCC) Allergies Active Allergy Reactions Criticality Noted Date Comments Yayo Inhibitors Other (Please comment) 7 Cough documented as of this encounter (statuses as of 05/01/2024) Medications CENTRUM SILVER OR TABS Take 1 Tablet by mouth in the morning. 0 5 Active LEXAPRO 20 MG PO TABS TAKE 1 TABLET DAILY 30 Tab 5 5 Active Additional Information Patient taking differently: 20 mgOralDaily(AM), Informant: Patient, Reported on 05/01/2024 PREVALITE 4 G PO PACK Taking 1 packet twice daily with water-take 2 hours before or after all other medications 60 Packet 5 5 Active CRESTOR 40 MG PO TABSIndications: Dyslipidemia, goal LDL below 100 TAKE ONE(1) TABLET DAILY AT BEDTIME 30 Tab 4 5 Active ALPRAZolam (XANAX) 0.5 MG Tablet Take 1 Tab by mouth every 6 hours as needed for Anxiety. 120 Tab 1 5 Active Coenzyme Q10 (CO Q 10) 10 MG CAPS Take by mouth 2 Capsules daily . Active pramipexole (MIRAPEX) 0.5 MG Tablet Take 1 Tablet by mouth in the morning and 1 Tablet before bedtime. Active potassium citrate ER (UROCIT-K) 10 MEQ (1080 MG) TBCRIndications: Calculus of kidney TAKE 2 TABLETS BY MOUTH 2 TIMES DAILY 360 Tab 1 9 Active Omeprazole 40 MG Oral Capsule Delayed Release (PriLOSEC) Take 1 Capsule by mouth at bedtime. 2 Active PreserVision AREDS Oral Capsule Take 1 Capsule by mouth in the morning. Active Magnesium 400 MG Oral Capsule Take 1 Capsule by mouth in the morning. Active Trelegy Ellipta 100-62.5-25 MCG/ACT Aerosol Powder Breath Activated (Fluticasone-Ume clidinium-Vilant jazzy) Inhale 1 Puff by mouth in the morning. 60 Each 6 3 Active Levothyroxine Sodium 88 MCG Oral Capsule (Tirosint) Take 75 mcg by mouth in the morning. 3 Active Eliquis 5 MG Oral Tablet (Apixaban)Indica tions:Paroxysmal atrial fibrillation (HCC) TAKE 1 TABLET BY MOUTH TWICE DAILY 180 Tablet 3 4 Active Candesartan Cilexetil 4 MG Oral Tablet (Atacand) Take 0.5 Tablets by mouth in the morning. 45 Tablet 3 4 Active Amiodarone HCl 200 MG Oral Tablet (Cordarone)Indic ations:Tachy-bra dy syndrome (HCC),Paroxysmal atrial fibrillation (HCC) Take 1 Tablet by mouth in the morning. 90 Tablet 3 4 Active CPAP every night at bedtime. Active Acetaminophen 500 MG Oral Tablet (Tylenol)Indicat ions:Paraesophag eal hernia Take 2 Tablets by mouth every 6 hours as needed for Other (incisional pain). 30 Tablet 4 Active Furosemide 40 MG Oral Tablet (Lasix)Indicatio ns:Chronic heart failure with preserved ejection fraction (HCC) Take 1 Tablet by mouth in the morning. Take 1 tablet in the mouth in the morning and follow-up with your PCP. 180 Tablet 3 4 Active Additional Information Patient taking differently:40 mg OralBID (.AM/PM), Take 1 tablet in the mouth in the morning 1/2 in the evening, Reported on 05/01/2024 Metoprolol Succinate ER 25 MG Oral Tablet Extended Release 24 Hour (toPROL XL) 1 Tablet in the morning. 4 Active Ventolin HFA 108 (90 Base) MCG/ACT Inhalation Aerosol Solution Inhale 2 Puffs by mouth every 4 hours as needed for Dyspnea or Wheezing. 18 g 3 4 06/18/19 25 Active documented as of this encounter (statuses as of 05/01/2024) Active Problems Problem Noted Date Diagnosed Date Paraesophageal hiatal hernia 09/30/2023 Paraesophageal hernia with gastroesophageal refl ux 09/30/2023 Moderate mitral regurgitation 04/30/2023 Pulmonary HTN 04/30/2023 Chronic kidney disease, stage 3a 02/22/2023 Overview: Per CKD protocol Polyneuropathy in other diseases classified else where 02/17/2023 Cardiac pacemaker in situ 09/24/2022 Tachy-nguyễn syndrome 09/24/2022 Paroxysmal atrial fibrillation 09/24/2022 Chronic heart failure with preserved ejection fr action 09/24/2022 Bradycardia, sinus 07/14/2022 Persistent atrial fibrillation 07/14/2022 Screening for osteoporosis 10/25/2017 Overview (10/25/2017): DEXAs followed by Dr. Mcallister. Renal cyst, acquired 10/24/2014 Mild obstructive sleep apnea 04/02/2014 Overview (08/16/2014): DC CPAP, non compliant, no benefit 2013 PSG -- RDI 6.5, 21 mins <89% T&B Medical HTN, goal below 140/90 09/26/2013 Menopause 03/14/2012 Depression 09/15/2011 DYSLIPIDEMIA, GOAL LDL BELOW 100 04/29/2009 Overview (04/29/2009): Per Lipid Taxonomy. Type 2 diabetes mellitus wit h hemoglobin A1c goal of less than 7.0% 03/14/2009 Overview (09/10/2015): Per Diabetes Taxonomy. ICD-10 update of inactive term Calculus of kidney 08/02/2008 Malignant neoplasm of skin of parts of face 01/16 Overview (08/08/2015): ICD-10 update of inactive term MALIG JAGDISH SKIN ARM-right 02/06/2008 Esophageal reflux 02/14/2007 Osteoporosis 02/14/2007 skin tags left axilla and left thigh 03/23/2002 Other seborrheic keratosis 03/23/2002 solar keratosis,mid upper back-7.2.99 03/23/2002 solar keratosis,left cheek-3.28.98 03/23/2002 Xerosis 03/23/2002 Actinic keratosis 03/23/2002 documented as of this encounter (statuses as of 05/01/2024) Resolved Problems Problem Noted Date Diagnosed Date Resolved Date Chronic obstructive pulmonary disease 02/17/2023 02/17/2023 HTN, goal below 140/80 01/04/201209/26 Overview: Per HTN Protocol #27. HTN, GOAL BELOW 130/80 04/09/200901/06 Overview (04/09/2009): Modified per HTN protocol #16. ADVANCE DIRECTIVE INFORMATION 10/18/2007 03/20/2024 Overview (10/18/2007): Yes, Patient instructed to provide copy of advance directive for provider to review and to be scanned into Electronic Medical Record 10/18/2007. No, Advance Directive brochure given to patient at prior appointment. PURE HYPERCHOLESTEROLEM 04/16 Overview (04/29/2009): Per Lipid Taxonomy. Type 2 diabetes mellitus wit h hemoglobin A1c goal of less than 7.0% 03/14/2009 Overview (09/10/2015): Per Diabetes Taxonomy. ICD-10 update of inactive term HYPERTENSION NOS 04/09/2009 Overview (04/09/2009): Modified per HTN protocol #16. documented as of this encounter (statuses as of 05/01/2024) Immunizations Name Administration Dates Next Due COVID-19 mRNA, LNP-s, No Pre serve, 2-Dose Series (Moderna) 07/19/2020,06/21/2020 H1N1 2009 Influenza, IM 05/14/2009 Pneumococcal Polysaccharide PPV23 (Pneumovax) 10/22/2009 Seasonal Influenza Vac., MDV , IM, 0.5 mL (Fluzone) 02/21/2014,02/01/2013,01/21/2012,01/23,02/06/2010,04/08/2009,02/20/2008 ,02/14/2007,03/09/2006 Seasonal Influenza, Quadriva lent Hd (Fluzone Hd) 02/24/2022 Seasonal Influenza, Quadriva lent Hd, 65+ Yrs 01/24/2020 TD - Tetanus/Diptheria (ADULT) 10/03/2007 TD, Preservative Free 10/03/2007 Varicella Zoster Vaccine (Adult) 11/16/2012 Zoster Vaccine Recombinant (Shingrix) 10/28/2018 ,08/23/2018 documented as of this encounter Social History Tobacco Use Types Packs/Day Years Used Date Smoking Tobacco: Never Passive Smoke Exposure: Past Smokeless Tobacco: Never Comments: smoked Alcohol Use Standard Drinks/Week Comments Not Currently 0 (1 standard drink = 0.6 oz pur e alcohol) wine-rare Comments No Sex and Gender Information Value Date Recorded Sex Assigned at Female 05/26/2023 1:50 PM EST Legal Sex Female 5:02 AM EST Gender Identity Female 05/26/2023 1:50 PM EST Sexual Orientation Straight 05/26/2023 1: 50 PM EST Occupation Industry Job Start Date Job End Date retired Not on file Not on file Not on file documented as of this encounter Functional Status * Are you deaf or do you have serious difficulty hearing? Answer Date of Assessment Author No 11/26/2023 11:49 PM EDT Obdulia, R achel A, BLOWER MECH[employer]IC * Are you blind or do you have serious difficulty seeing, even when wearing glasses? Answer Date of Assessment Author No 11/26/2023 11:49 PM EDT Dimock, R achel A, BLOWER MECHANIC * Do you have serious difficulty walking or climbing stairs? (5 years old or older) Answer Date of Assessment Author No 11/26/2023 11:49 PM EDT Dimock, R achel A, BLOWER MECHANIC * Do you have difficulty dressing or bathing? (5 years old or older) Answer Date of Assessment Author No 11/26/2023 11:49 PM EDT Obdulia, R achel A, BLOWER MECHANIC * Because of a physical, mental, or emotional condition, do you have difficulty doing errands alone such as visiting a doctors office or shopping? (15 years old or older) Answer Date of Assessment Author No 11/26/2023 11:49 PM EDT Dimock, R achel A, BLOWER MECHANIC documented as of this encounter Mental Status * Because of a physical, mental, or emotional condition, do you have serious difficulty concentrating, remembering, or making decisions? (5 years old or older) Answer Entry Date Author No 11/26/2023 11:49 PM EDT Obdulia, R achel A, BLOWER MECHANIC documented in this encounter Plan of Treatment Upcoming Encounters Date Type Department Care Team (Late st Contact Info) Description 05/23/2024 10:00 AM EST PulmDiagnostic Pulmonary Function Lab, [facility] [address] [place] [address] [address] [place] [address] 06/01/2024 11:00 AM EST Cardiac Studies Cardiac Studies, [facility] [address] [facility] [place] [address] 06/20/2024 10:00 AM EST Office Visit Pulmonary Medicine, [facility] [address] [place] [address] Ortiz Camp MD [address] [place] [place] [address] 08/23/2024 10:30 AM EDT Office Visit Cardiology, [facility] [address] [facility] [place] [address] Violeta Polk, MIKAYLA [address] [facility] [place] [address] 09/13/2024 9:15 AM EDT [facility] [address] [facility] [place] [address] 09/19/2024 3:20 PM EDT Office Visit Sleep Disorders Ctr [facility] [address] [facility] [place] [phone] Liana Segura DO [address] [facility] [place] [address] 01/02/2025 2:40 PM EDT [facility] [address] [facility] [place], [place] [address] Reji Vidales MD [address] [facility] [place] [address] 02/01/2025 11:30 AM EDT Office Visit General Surgery, [facility] [address] [facility] [place] [address] Anthony Arredondo MD [address] [place] [address] Pending Results Name Type Priority Associated Diagnoses Date /Time BNP, NT-PRO Lab Routine Paroxysmal atrial fibrillation (HCC) Chronic heart failure with preserved ejection fraction (HCC) 05/01/2024 10:46 AM EST COMPREHENSIVE METABOLIC PANEL Lab Routine Paroxysmal atrial fibrillation (HCC) Chronic heart failure with preserved ejection fraction (HCC) 05/01/2024 10:46 AM EST Health Maintenance Due Date Last Done Comments DTap/Tdap Vaccines (1 - Tdap) 10/04/2007 10/03/2007, 10/03/2007 Pneumococcal Vaccine: 65+ Years (2 of 2 - PCV) 10/22/2010 10/22/2009, 04/03/2002 DXA Scan 05/24/2014 05/24/2013, 12/2013, 04/23/2009, Additional history exists Depression Monitoring 10/25/2015 10/24/2014 Diabetic Foot Exam 10/25/2015 10/24/2014, 0 10/11/2013, 09/20/2012, Additional history exists Albumin/Creatinine Ratio 07/10/2016 016, 02/23/2014, 02/01/2013, Additional history exists Diabetic Eye Exam 01/13/2018 01/13/2017, , 10/14/2016, Additional history exists HbA1c 10/12/2023 04/13/2023, 02/15, 07/01/2021, Additional history exists COVID-19 Vaccine ( season) 2024 07/19/2020, 06/21/2020 Influenza Vaccine (FLU shot) (#1) 2024 02/24/2022, 01/24/2020, 02/21/2014, Additional history exists *BISPHONATE OR OTHER ACCEPTABLE MEDICATION NEEDED FOR OSTEOPOROSIS (REFER TO SMARTSET #1146) 04/16/2024 GFR 08/10/2024 02/11/2024, 11/14, 11/29/2023, Additional history exists TSH 11/11/2024 11/12/2023, 03/18, 11/13/2022, Additional history exists CKD HGB USE SMARTSET 26099 02/10/202505/01, 02/11/2024, 11/30/2023, Additional history exists CKD PHOS USE SMARTSET 73809 02/10/202501/16, 03/26/2017, 02/18/2017, Additional history exists Zoster Vaccines Completed 10/28/2018, 01/2019, 11/16/2012 VITAMIN D LEVEL ONCE IN A LIFETIME-USE SMARTSET# 75333 Completed 04/10/2019 HPV (Gardasil) Vaccine Aged Out No lo nger eligible based on patient's age to complete this topic Hepatitis B Vaccine Aged Out No longe r eligible based on patient's age to complete this topic MENINGOCOCCAL (MENACTRA/MENVEO) Aged Out No longer eligible based on patient's age to complete this topic documented as of this encounter Medical Devices Implanted Type Area Llama Farmer Device Identifier Shelf Expiration Date Model / Serial / Lot Lens 21.5 Mx60 - [id number] - [id number] Implanted:Qty: 1 on 08/24/2017 by Michael Sanders MD at OR [facility] Left: Eye [employer]OM[employer] : SURGICAL 01/15/2020 MX60-21.5 / [id number] / Lens 22.0 Mx60e - [id number] - [id number] Implanted:Qty: 1 on 06/09/2018 by Michael Sanders MD at OR [facility] Right: Eye [employer]OM[employer] 12/14/2020 VP91J-75.0 / [id number] / [id number] documented as of this encounter Procedures Procedure Name Priority Date/Time Associated Diagnosis Comments CBC Routine 05/01/2024 10:46 AM EST Paroxysmal atrial fibrillation (HCC) Chronic heart failure with preserved ejection fraction (HCC) documented in this encounter Results * (ABNORMAL) CBC (05/01/2024 10:46 AM EST) WBC 5.40 4.00 - 10.80 K/uL 05/01/2024 10:55 AM EST [facility] [place] [facility] RBC 3.76 3.85 - 5.15 M/uL 05/01/2024 10:55 AM EST [facility] [place] [facility] HGB 10.2(L) 12.0 - 15.3 g/dL 05/01/2024 10:55 AM EST [facility] [place] [facility] HCT 35.0(L) 36.0 - 45.2 % 05/01/2024 10:55 AM EST [facility] [place] [facility] MCV 93.1 81.5 - 97.5 fL 05/01/2024 10:55 AM EST [facility] [place] [facility] MCH 27.1 27.0 - 34.0 pg 05/01/2024 10:55 AM EST [facility] [place] [facility] MCHC 29.1 32.0 - 36.0 g/dL 05/01/2024 10:55 AM EST [facility] [place] [facility] RDW 15.1 11.5 - 15.5 % 05/01/2024 10:55 AM EST [facility] [place] [facility] PLT 168 140 - 400 K/uL 05/01/2024 10:55 AM EST [facility] [place] [facility] MPV 10.5 6.6 - 11.1 fL 05/01/2024 10:55 AM EST [facility] [place] [facility]10 Blood Venous blood specimen / Unknown Venipuncture / Unknown 05/01/2024 10:46 AM EST 05/01/2024 10:46 AM EST Violeta Polk PA-C LAB BLOOD ORDERABLES F inal Result [facility] [place] [facility] [place] [address] documented in this encounter Visit Diagnoses Diagnosis Paroxysmal atrial fibrillation (HCC) Atrial fibrillation Chronic heart failure with preserved ejection fraction (HCC) documented in this encounter Advance Directives * Full Code (Latest Code Status on File) Date Activated Date Inactivated Comments 11/26/2023 4:46 PM 11/30/2023 7:57 PM This order r eflects the patients wishes and were consensually agreed upon. Question Answer Comments Discussion of Advance Directives occurred with: Patient Does the patient have a Living Will? Yes, not cu rrently available Does the patient have Health Care Power of Automatic Die Cutting Machine Operator? Yes, not currently available * Full Code Date Activated Date Inactivated Comments 11/26/2023 10:30 AM 11/26/2023 4:46 PM Question Answer Comments Discussion of Advance Direct maty occurred with: Not Discussed due to patient's condition * Full Code Date Activated Date Inactivated Comments 08/20/2023 8:28 AM 08/20/2023 1:59 PM This order ref lects the patients wishes and were consensually agreed upon. Question Answer Comments Discussion of Advance Direct maty occurred with: Not Discussed due to patient's condition * Full Code Date Activated Date Inactivated Comments 08/20/2023 7:36 AM 08/20/2023 8:28 AM This order ref lects the patients wishes and were consensually agreed upon. Question Answer Comments Discussion of Advance Direct maty occurred with: Not Discussed due to patient's condition * Full Code Date Activated Date Inactivated Comments 08/24/2017 8:03 AM 08/24/2017 2:54 PM This order r eflects the patients wishes and were consensually agreed upon. Care Teams Radiology Director Relationship Specialty Start Date End Date Adams Mcallister MD [address] [place] [address] PCP - General Internal Medicine 10/24/14 documented as of this encounter
--- OUTSIDE RECORDS SUMMARY | 2024-05-05 08:22 | External Medical Summary ---
Author Name Unknown Address Unknown Organization [id number] [place] [address] [place] [address] Laboratory Report Ordering Provider Test Date Status JHONATAN ROGERS 05/01/2024 10:46:06 Final Observation Date Value Abnormality Reference (Units ) Status WBC, Total 05/01/2024 10:46:06 5.40 4.00-10.8 0 (K/uL) Final RBC 05/01/2024 10:46:06 3.76 3.85-5.15 (M/uL) Final Hemoglobin 05/01/2024 10:46:06 10.2 Below low normal 12 .0-15.3 (g/dL) Final HCT 05/01/2024 10:46:06 35.0 Below low normal 36. 0-45.2 (%) Final MCV 05/01/2024 10:46:06 93.1 81.5-97.5 (fL) Final MCH 05/01/2024 10:46:06 27.1 27.0-34.0 (pg) Final MCHC 05/01/2024 10:46:06 29.1 32.0-36.0 (g/dL) Final RDW 05/01/2024 10:46:06 15.1 11.5-15.5 (%) Final Platelets 05/01/2024 10:46:06 168 140-400 (K /uL) Final MPV 05/01/2024 10:46:06 10.5 6.6-11.1 ( fL) Final Performing Location [facility] [place] [facility] [place] [address]
--- OUTSIDE RECORDS SUMMARY | 2024-05-05 08:22 | External Medical Summary ---
Author Name Unknown Address Unknown Organization [id number] [place] [address] [place] [address] Laboratory Report Ordering Provider Test Date Status JHONATAN ROGERS 05/01/2024 10:46:06 Final Observation Date Value Abnormality Reference (Units ) Status BUN 05/01/2024 10:46:06 20 6-20 (mg/dL) Final Creatinine 05/01/2024 10:46:06 1.0 0.5-1.0 (mg/dL) Final Glomerular filtration rate/1.73 sq M.predicted [Volume Rate/Area] in Serum, Plasma or Blood by Creatinine-based formula (CKD-EPI) 05/01/2024 10:46:06 57 Below low normal >=60 (mL/min) Final eGFR is calculated based on the CKD-EPI 2020 equation. Sodium 05/01/2024 10:46:06 145 135-146 (m mol/L) Final Potassium 05/01/2024 10:46:06 4.9 3.5-5.1 (m mol/L) Final Cl 05/01/2024 10:46:06 109 Above high normal 98 -107 (mmol/L) Final CO2 05/01/2024 10:46:06 28 22-32 (mmo l/L) Final Anion gap 05/01/2024 10:46:06 8 7-15 (mmol /L) Final Glucose 05/01/2024 10:46:06 115 70-120 (mg /dL) Final Albumin 05/01/2024 10:46:06 4.2 3.8-5.0 (g /dL) Final AST (Aspartate aminotransferase) 05/01/2024 10:46:06 28 10-35 (U/L) Fin al Alk Phos 05/01/2024 10:46:06 80 35-130 (U/ L) Final Bilirubin, Total 05/01/2024 10:46:06 0.4 <=1 .2 (mg/dL) Final Calcium 05/01/2024 10:46:06 8.9 8.4-10.2 ( mg/dL) Final Protein 05/01/2024 10:46:06 5.8 Below low normal 6.0 -8.3 (g/dL) Final ALT (Alanine aminotransferase) 05/01/2024 10:46:06 26 10-35 (U/L) Grayson painter Performing Location [facility] [place] [facility] [facility] [address]
--- OUTSIDE RECORDS SUMMARY | 2024-05-05 08:22 | External Medical Summary | Summary of Care ---
Author Name Unknown Organization [facility] Address [address] [place] [address] Phone [phone] Care Team Providers Care Freight Rate Analyst Name Role Phone Adams Mcallister MD Primary Care Provider [phone] Reason for Visit * Reason Comments Follow Up Encounter Details Date Type Department Care Team (Late st Contact Info) Description 05/01/2024 10:00 AM EST Office Visit Cardiology, [facility] [address] [place] [address] Violeta Polk PA-C [address] [place] [id number] Chronic heart failure with preserved ejection fraction (HCC)*; Paroxysmal atrial fibrillation (HCC); Pulmonary HTN (HCC); Tachy-nguyễn syndrome (HCC); SOB (shortness of breath); Pulmonary hypertension (HCC) Allergies Active Allergy Reactions Criticality Noted Date Comments Yayo Inhibitors Other (Please comment) 7 Cough documented as of this encounter (statuses as of 05/01/2024) Medications CENTRUM SILVER OR TABS Take 1 Tablet by mouth in the morning. 0 09/02/19 05 Active LEXAPRO 20 MG PO TABS TAKE 1 TABLET DAILY 30 Tab 5 05/28/19 15 Active Additional Information Patient taking differently: 20 mgOralDaily(AM), Informant: Patient, Reported on 05/01/2024 PREVALITE 4 G PO PACK Taking 1 packet twice daily with water-take 2 hours before or after all other medications 60 Packet 5 07/24/19 15 Active CRESTOR 40 MG PO TABSIndications :Dyslipidemia, goal LDL below 100 TAKE ONE(1) TABLET DAILY AT BEDTIME 30 Tab 4 07/25/19 15 Active ALPRAZolam (XANAX) 0.5 MG Tablet Take 1 Tab by mouth every 6 hours as needed for Anxiety. 120 Tab 1 08/23/19 15 Active Coenzyme Q10 (CO Q 10) 10 MG CAPS Take by mouth 2 Capsules daily . Active pramipexole (MIRAPEX) 0.5 MG Tablet Take 1 Tablet by mouth in the morning and 1 Tablet before bedtime. Active potassium citrate ER (UROCIT-K) 10 MEQ (1080 MG) TBCRIndications :Calculus of kidney TAKE 2 TABLETS BY MOUTH 2 TIMES DAILY 360 Tab 1 04/10/20 19 Active Omeprazole 40 MG Oral Capsule Delayed Release (PriLOSEC) Take 1 Capsule by mouth at bedtime. 06/03/19 22 Active PreserVision AREDS Oral Capsule Take 1 Capsule by mouth in the morning. Active Magnesium 400 MG Oral Capsule Take 1 Capsule by mouth in the morning. Active Trelegy Ellipta 100-62.5-25 MCG/ACT Aerosol Powder Breath Activated (Fluticasone-Um eclidinium-Cam nterol) Inhale 1 Puff by mouth in the morning. 60 Each 6 02/18/20 23 Active Levothyroxine Sodium 88 MCG Oral Capsule (Tirosint) Take 75 mcg by mouth in the morning. 04/21/20 23 Active Eliquis 5 MG Oral Tablet (Apixaban)Indic ations:Paroxysm al atrial fibrillation (HCC) TAKE 1 TABLET BY MOUTH TWICE DAILY 180 Tablet 3 06/09/19 24 Active Candesartan Cilexetil 4 MG Oral Tablet (Atacand) Take 0.5 Tablets by mouth in the morning. 45 Tablet 3 08/10/19 24 Active Amiodarone HCl 200 MG Oral Tablet (Cordarone)Velma cations:Tachy-b rady syndrome (HCC),Paroxysma l atrial fibrillation (HCC) Take 1 Tablet by mouth in the morning. 90 Tablet 3 11/02/19 24 Active CPAP every night at bedtime. Active Acetaminophen 500 MG Oral Tablet (Tylenol)Indica tions:Paraesoph ageal hernia Take 2 Tablets by mouth every 6 hours as needed for Other (incisional pain). 30 Tablet 11/30/19 24 Active Metoprolol Succinate ER 25 MG Oral Tablet Extended Release 24 Hour (toPROL XL) 1 Tablet in the morning. 01/21/20 24 Active Ventolin HFA 108 (90 Base) MCG/ACT Inhalation Aerosol Solution Inhale 2 Puffs by mouth every 4 hours as needed for Dyspnea or Wheezing. 18 g 3 03/20/20 24 025 Active Furosemide 40 MG Oral Tablet (Lasix)Indicati ons:Chronic heart failure with preserved ejection fraction (HCC) Take 1.5 Tablets by mouth every morning AND 1 Tablet every evening. 05/01/20 24 Active Furosemide 40 MG Oral Tablet (Lasix)Indicati ons:Chronic heart failure with preserved ejection fraction (HCC) Take 1 Tablet by mouth in the morning. Take 1 tablet in the mouth in the morning and follow-up with your PCP. 180 Tablet 3 11/30/19 24 024 Discontinued documented as of this encounter (statuses as of 05/01/2024) Active Problems Problem Noted Date Diagnosed Date Paraesophageal hiatal hernia 09/30/2023 Paraesophageal hernia with gastroesophageal refl ux 09/30/2023 Moderate mitral regurgitation 04/30/2023 Pulmonary hypertension 04/30/2023 Chronic kidney disease, stage 3a 02/22/2023 [...] on file documented as of this encounter Last Filed Vital Signs Vital Sign Reading Time Taken Comments Blood Pressure 138/68 05/01/2024 10:06 AM EST Pulse 64 05/01/2024 10:06 AM EST Temperature - - Respiratory Rate 20 05/01/2024 10:06 AM EST Oxygen Saturation - - Inhaled Oxygen Concentration - - Weight 92.4 kg (203 lb 12 oz) 05/01/2024 10:06 A M EST Height - - Body Mass Index 36.09 03/20/2024 8:33 AM EST documented in this encounter Functional Status * Are you deaf or do you have serious difficulty hearing? Answer Date of Assessment Author No 11/26/2023 11:49 PM EDT Mc Steiner LPN * Are you blind or do you have serious difficulty seeing, even when wearing glasses? Answer Date of Assessment Author No 11/26/2023 11:49 PM EDMc Larson LPN * Do you have serious difficulty walking or climbing stairs? (5 years old or older) Answer Date of Assessment Author No 11/26/2023 11:49 PM EDMc Larson LPN * Do you have difficulty dressing or bathing? (5 years old or older) Answer Date of Assessment Author No 11/26/2023 11:49 PM EDMc Larson LPN * Because of a physical, mental, or emotional condition, do you have difficulty doing errands alone such as visiting a doctors office or shopping? (15 years old or older) Answer Date of Assessment Author No 11/26/2023 11:49 PM Mc Ignacio LPN documented as of this encounter Mental Status * Because of a physical, mental, or emotional condition, do you have serious difficulty concentrating, remembering, or making decisions? (5 years old or older) Answer Entry Date Author No 11/26/2023 11:49 PM Mc Ignacio LPN documented in this encounter Progress Notes * Violeta Polk PA-C - 05/01/2024 10:16 AM EST 05/01/2024 Cardiology F/U; Patient is a 78-year-old female here today for cardiology follow-up. Last Last clinic evaluation approximately 6 months ago with the undersigned. Primary improvement analyst is . Also follows with BRET Campos and [facility], Dr. Mccullough. History includes: TBS S/P ppm 08/26/2022 PAF S/P DCCV 08/26/2022-- controlled metoprolol and amiodarone. 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 30-40% proximal circumflex stenosis. Mild pulmonary hypertension confirmed, EF 65% with +1 MR. Pulm hypertension - follows with Pulm dept History of Present Illness The patient, with a history of a hiatal hernia repair this summer, pacemaker placement for atrial fibrillation/tachybrady, and chronic obstructive pulmonary disease (COPD), presents with persistent wheezing and shortness of breath. She reports that her symptoms have not improved as expected following the hiatal hernia repair in November, which was initially thought to be contributing to her respiratory issues. Despite the resolution of reflux symptoms post-surgery, the patient's respiratory symptoms persist. The patient is currently under the care of a car refinisher and is on inhaler therapy, which she reports is not providing the expected relief. The patient also uses a CPAP machine, which she reports struggling with. The patient is on furosemide, but the exact dosage and frequency are unclear. She reports significant weight gain, which she attributes to fluid retention. She also reports swelling and coughing, with occasional hoarseness. She believes she is up about 15 lbs over the last few months. Per our records, this appears to be more like 8-10 The patient has a history of kidney stones and is advised to maintain hydration. However, she expresses difficulty balancing fluid intake due to concerns about fluid retention. She also acknowledges a high salt intake, which she is advised to reduce. The patient is on a complex medication regimen, with 14 pills taken in the morning. The medicationsare provided in pre-packaged doses by a pharmacy, but the patient struggles to identify individual medications. She expresses a desire to improve her health and return to her previous level of functioning. No chest pain, palpitations, dizziness, syncope or near syncope. No orthopnea, PND. No fever, chills, cough, hematochezia, melena, or hemoptysis. Review of Systems: See HPI for pertinent positives. All others negative, other than those noted in HPI. Patient Active Problem List Diagnosis skin tags left axilla and left thigh Other seborrheic keratosis solar keratosis,mid upper back-7.2.99 solar keratosis,left cheek-3.28.98 Xerosis Actinic keratosis Esophageal reflux Osteoporosis Malignant neoplasm of skin of parts of face MALIG JAGDISH SKIN ARM-right Calculus of kidney Type 2 diabetes mellitus with hemoglobin A1c goal of less than 7.0% (HCC) DYSLIPIDEMIA, GOAL LDL BELOW 100 Depression Menopause HTN, goal below 140/90 Mild obstructive sleep apnea Renal cyst, acquired Screening for osteoporosis Bradycardia, sinus Persistent atrial fibrillation (HCC) Cardiac pacemaker in situ Tachy-nguyễn syndrome (HCC) Paroxysmal atrial fibrillation (HCC) Chronic heart failure with preserved ejection fraction (HCC) Polyneuropathy in other diseases classified elsewhere (HCC) Chronic kidney disease, stage 3a (HCC) Moderate mitral regurgitation Pulmonary HTN (HCC) 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 Social History Tobacco Use Smoking status: Never Passive exposure: Past Smokeless tobacco: Never Tobacco comments: smoked Vaping Use Vaping status: Never Used Substance Use Topics Alcohol use: Not Currently Comment: wine-rare Drug use: No Past Surgical History: Procedure Laterality Date BREAST LESION,OTHER,EXCISION 1994 biopsy benign COLONOSCOPY, DIAGNOSTIC (RECTUM) 02/11/2007 repeat in 10 years COLONOSCOPY, DIAGNOSTIC (RECTUM) 05/04/2017 adenomatous polyps, repeat 3 yrs/COLONOSCOPY FLEXIBLE PROXIMAL DIAGNOSTIC performed by Mirella Selby MD at [facility] COLONOSCOPY, DIAGNOSTIC (RECTUM) 08/29/2020 hyperplastic polyp, diverticulosis / COLONOSCOPY FLEXIBLE PROXIMAL DIAGNOSTIC performed by Mirella Jimenez MD at [facility] COLORECTAL CANCER SCREEN; COLON 1996 DEXA SCAN/BONE MINERAL AXIAL 08/1998 DEXA SCAN/BONE MINERAL AXIAL 03/2003 T = -1.96, repeat 3 yearas DEXA SCAN/BONE MINERAL AXIAL 03/2009 T = -1.5 on actonel, rpt 4 years, 2013 DEXA SCAN/BONE MINERAL AXIAL 2013, repeat 2 years. DEXA SCAN/BONE MINERAL AXIAL 2015 followed by PCP at [facility] EGD, FLEXIBLE, DIAGNOSTIC 08/29/2020 lg hiatal hernia / ESOPHAGOGASTRODUODENOSCOPY (EGD), FLEXIBLE, TRANSORAL, DIAGNOSTIC performed by Mirella Selby MD at [facility] EGD, FLEXIBLE, DIAGNOSTIC N/A 08/20/2023 tortuous esphagus/large paraesophageal hernia/gastritis/biopsies from stomach show mild gastritis/ESOPHAGOGASTRODUODENOSCOPY (EGD), FLEXIBLE, TRANSORAL, DIAGNOSTIC performed by Yenni Tomlin DO at [facility] EGD, FLEXIBLE, DIAGNOSTIC N/A 11/26/2023 ESOPHAGOGASTRODUODENOSCOPY (EGD), FLEXIBLE, TRANSORAL, DIAGNOSTIC performed by Anthony Arredondo MD at [facility] FRAGMENT KIDNEY STONE BY SHOCK WAVE 12/16/2007 FRAGMENT KIDNEY STONE BY SHOCK WAVE 02/14/2010 ESWL (Extracorporeal Shock Wave Lithotripsy) LAP;EXCISION OF LESIONS mult Laparoscopy,wFulguration or Exc Lesions, endo PARAESOPHAGEAL HERNIA REPAIR, LAP W/ MESH N/A 11/26/2023 LAPAROSCOPIC PARAESOPHAGEAL HERNIA REPAIR W/MESH performed by Anthony Arredondo MD at [facility] PARAESOPHAGEAL HERNIA REPAIR, LAP W/O MESH N/A 11/26/2023 LAPAROSCOPIC PARAESOPHAGEAL HERNIA REPAIR WO/ MESH performed by Anthony Arredondo MD at [facility] REMOVAL OF APPENDIX 1964 REMOVAL OF TONSILS, UNDER AGE 11 REMOVE CATARACT, INSERT LENS PROSTH Left 08/24/2017 left EXTRACAPSULAR CATARACT REMOVAL WITH INTRAOCULAR LENS performed by Michael Sanders MD at [facility] REMOVE CATARACT, INSERT LENS PROSTH Right 06/09/2018 right EXTRACAPSULAR CATARACT REMOVAL WITH INTRAOCULAR LENS performed by Michael Sanders MD at [facility] TOTAL ABD HYSTERECTOMY W/WO REMOVAL OF TUBE(S) 1987 EDD BSO for endometriosis VITRECTOMY W/ REMOVE OF EPIRETINAL MEMBRANE Left 11/23/2016 23G PPV/MP for ERM OS; Dr. Yu Family History Problem Relation Name Age of Onset No Past Hx Mother at 95 Cancer Mother skin ca Eye Problems Mother Retinal Detachment s/p Cataract extraction Surgery/blindnes r/t RD Hypertension Father Heart Disorder Father mitral valve prolapse Cancer Father skin ca/renal cancer Eye Problems Father 90 AMD-"dry" Cancer Brother skin ca Prostate cancer Brother Lung Disorder Grandfather (Maternal) Heart Disorder Grandmother (Paternal) Heart Disorder Grandfather (Paternal) Review of patient's allergies indicates: Allergen Reactions Yayo Inhibitors Other (Please comment) Cough Current Outpatient Medications Medication Sig Dispense Refill CENTRUM SILVER OR TABS Take 1 Tablet by mouth in the morning. 0 LEXAPRO 20 MG PO TABS TAKE 1 TABLET DAILY (Patient taking differently: Take 1 Tablet by mouth in the morning.) 30 Tab 5 PREVALITE 4 G PO PACK Taking 1 packet twice daily with water-take 2 hours before or after all othermedications 60 Packet 5 CRESTOR 40 MG PO TABS TAKE ONE(1) TABLET DAILY AT BEDTIME 30 Tab 4 ALPRAZolam (XANAX) 0.5 MG Tablet Take 1 Tab by mouth every 6 hours as needed for Anxiety. 120 Tab 1 Coenzyme Q10 (CO Q 10) 10 MG CAPS Take by mouth 2 Capsules daily . pramipexole (MIRAPEX) 0.5 MG Tablet Take 1 Tablet by mouth in the morning and 1 Tablet before bedtime. potassium citrate ER (UROCIT-K) 10 MEQ (1080 MG) TBCR TAKE 2 TABLETS BY MOUTH 2 TIMES DAILY 360 Tab1 Omeprazole 40 MG Oral Capsule Delayed Release (PriLOSEC) Take 1 Capsule by mouth at bedtime. PreserVision AREDS Oral Capsule Take 1 Capsule by mouth in the morning. Magnesium 400 MG Oral Capsule Take 1 Capsule by mouth in the morning. Trelegy Ellipta 100-62.5-25 MCG/ACT Aerosol Powder Breath Activated (Oqpprqvvpfv-Gajqugyakytm-Inesaqzdra) Inhale 1 Puff by mouth in the morning. 60 Each 6 Levothyroxine Sodium 88 MCG Oral Capsule (Tirosint) Take 75 mcg by mouth in the morning. Eliquis 5 MG Oral Tablet (Apixaban) TAKE 1 TABLET BY MOUTH TWICE DAILY 180 Tablet 3 Candesartan Cilexetil 4 MG Oral Tablet (Atacand) Take 0.5 Tablets by mouth in the morning. 45 Tablet 3 Amiodarone HCl 200 MG Oral Tablet (Cordarone) Take 1 Tablet by mouth in the morning. 90 Tablet 3 CPAP every night at bedtime. Acetaminophen 500 MG Oral Tablet (Tylenol) Take 2 Tablets by mouth every 6 hours as needed for Other (incisional pain). 30 Tablet 0 Metoprolol Succinate ER 25 MG Oral Tablet Extended Release 24 Hour (toPROL XL) 1 Tablet in the morning. Ventolin HFA 108 (90 Base) MCG/ACT Inhalation Aerosol Solution Inhale 2 Puffs by mouth every 4 hours as needed for Dyspnea or Wheezing. 18 g 3 Furosemide 40 MG Oral Tablet (Lasix) Take 1.5 Tablets by mouth every morning AND 1 Tablet every evening. No current facility-administered medications for this visit. Physical Exam: BP 138/68 (BP Site: Left Arm, BP Position: Sitting) | Pulse 64 | Resp 20 | Wt 92.4 kg (203 lb 12 oz) | BMI 36.09 kg/m | BSA 2.03 m Wt Readings from Last 3 Encounters: 05/01/24 92.4 kg (203 lb 12 oz) 03/20/24 87.5 kg (193 lb) 02/04/24 87.7 kg (193 lb 6.4 oz) General: No acute distress. A+Ox3. HEENT: Normocephalic. Atraumatic. Conjunctiva and sclera clear. NECK: No carotid bruits. No JVD. Carotid upstrokes are brisk. Heart: RRR. S1 and S2 noted. +2/6 systolic murmur. Lungs: Clear to auscultation. No wheezes, rhonchi, rales. Abdomen: Normal bowel sounds. Soft. Nontender. No masses or organomegaly. No abdominal bruits. Extremities: trace edema. No clubbing or cyanosis. Pulses: radial=2/4, posterior tibial=2/4, dorsalis pedis = 2/4. NEURO: No focal deficits. PSYCH: Normal. Cardiac studies/labs: Device interrogation reviewed from Mar 2024: Appropriate function, battery longevity of 10 years. 0% burden of afib. 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 30% ostial RCA/circumflex. 30-40% proximal circumflex stenosis Borderline left and right-sided filling pressures Mild pulmonary hypertension Preserved cardiac output LVEF 65%, +1 MR Echo 01/2023 The examination is adequate to evaluate the referral indication. The left ventricular cavity size is normal. The LV wall thickness is mildly increased (concentric). The left ventricular wall motion is normal. The qualitative LV ejection fraction is 55-59% (normal). The left atrium is severely enlarged (>48 ml/m^2,). The left ventricular diastolic function is abnormal by 2-D findings. Mild aortic valve sclerosis is present. Moderate mitral regurgitation is present. (2 to 3 +) Moderate tricuspid regurgitation is present. Moderate pulmonary hypertension is present. Impression/Plan: 78 year old female Assessment & Plan Dyspnea and Wheezing Persistent wheezing and dyspnea despite hiatal hernia repair and inhaler use. Upcoming lung function tests and echocardiogram to evaluate pulm pressures. Her SOB predates amiodarone use, but if this is a concern about pulm toxicity, may need to discontinued. -await echo/PFT's and f/u with pulm ORTEGA - - Encourage continued CPAP use HFpEF with Fluid Retention Significant weight gain and edema indicative of fluid retention. Unclear adherence to furosemide regimen. Discussed importance of managing fluid and salt intake. Explained fluid retention's impact onbreathing and overall health. Blood work will guide furosemide adjustment. - Perform blood work to assess kidney function and fluid status - Verify current furosemide dosage with pharmacy - Limit fluid intake to 60 ounces per day - Advise on reducing salt intake - Review blood work results and adjust furosemide dosage accordingly Atrial Fibrillation (Afib) No recent Afib episodes noted on pacemaker check. Continue amiodarone and metoprolol Continue Eliquis Pacemaker functioning well and maintaining normal rhythm. - Continue current pacemaker management - Monitor for future Afib episodes Moderate mitral regurgitation and TR per echo in Jan 2023. Stable -repeat echo ordered Nonobstructive atherosclerosis of coronary artery -Mild/moderate nonobstructive CAD per cath in 02/2023 -stable, continue meds Follow-up - Schedule follow-up appointment in three months - Call with blood work results and medication instructions - Keep echocardiogram appointment in May. The patient is to continue all current medications as listed above. No changes were made at today'svisit. Further recommendations after review of labs and review of meds with pharmacy . Patient is being evaluated in the cardiology office for ongoing care/risk management for CHF; PAF; Pacemaker. I spent a total of 40 minutes on the date of service in preparation, delivery, and documentation ofthe care provided to Katherin Allred excluding any time spent in the performance of separately billed services. The patient agrees to the above plan and will call with additional questions or concerns. ER with all emergencies advised. Follow-up: Return in about 3 months (around 07/30/2024). | Check-out note: Blood work today Keep echo as scheduled 3 month follow up Violeta Polk PA-C Department of Cardiology Text in this note was generated using an ambient documentation service. I discussed the use of a device to record and summarize our discussion today. All persons present during the encounter consented to its use. This chart was completed in part utilizing [employer] Speech Voice Recognition Software. Grammatical errors, random word insertions, prounoun errors, and incomplete sentences are an occasional consequence of this system due to software limitations, ambient noise, and hardware issues. Any formal questions or concerns about the content, text, or information contained within the body of this dictation should be directly addressed to the provider for clarification. documented in this encounter Nursing Notes * Reina Norris, JIHAN - 05/01/2024 10:05 AM EST Examination Room: 1 Name: Katherin Allred Date of : (1945). Reason for Visit: follow up Interim Hospitalization(s): [facility] ER - related to hitting her head from falls; [facility] - November 25 for surgery Problems/Concerns: swelling/weight gain Chest Pain/SOB: ongoing [facility] Discussed: Not applicable [facility] is a way you can talk to your provider online through e-mail. Would you like to sign up? I can activate it for you? ALREADY ACTIVE Patient was instructed to not get up on the exam table until directed and assisted by their provider; patient is to remain seated in the chair/ wheelchair/ exam table for fall prevention and safety reasons. Patient is aware to have assistance to step down off exam table with personnel. Patient voiced full comprehension of instructions. documented in this encounter Plan of Treatment Upcoming Encounters Date Type Department Care Team (Late st Contact Info) Description 05/23/2024 10:00 AM EST PulmDiagnostic Pulmonary Function Lab, [facility] [address] [facility] [place] [address] [place] [address] [facility] [place] [address] 06/01/2024 11:00 AM EST Cardiac Studies Cardiac Studies, [facility] [address] [facility] [place] [address] 06/20/2024 10:00 AM EST Office Visit Pulmonary Medicine, [facility] [address] [facility] [place] [address] Ortiz Camp [facility] [address] [facility] [address] 08/23/2024 10:30 AM EDT Office Visit Cardiology, [facility] [address] [facility] [place] [address] Violeta Polk PA-C [address] [place] [address] 09/13/2024 9:15 AM EDT Imaging Radiology [facility] 1st Floor, [place] [address] [facility] [place] [address] 09/19/2024 3:20 PM EDT Office Visit Sleep Disorders Ctr [facility] [address] [facility] [place] [phone] Liana Segura, [address] [place] [address] 01/02/2025 2:40 PM EDT Office Visit Nephrology, [facility] [address] [facility] [place] [address] Reji Vidales MD [address] [place] [address] 02/01/2025 11:30 AM EDT Office Visit General Surgery, [facility] [address] [place] [address] Anthony Arredondo MD [address], [place] [id number] Pending Results Name Type Priority Associated Diagnoses Date /Time BNP, NT-PRO Lab Routine Paroxysmal atrial fibrillation (HCC) Chronic heart failure with preserved ejection fraction (HCC) 05/01/2024 10:46 AM EST Scheduled Orders Name Type Priority Associated Diagnoses Orde r Schedule BNP, NT-PRO Lab Routine Paroxysmal atrial fibrillation (HCC) Chronic heart failure with preserved ejection fraction (HCC) Expected: 05/01/2024, Expires: 05/01/2025 Health Maintenance Due Date Last Done Comments [...] OSTEOPOROSIS (REFER TO SMARTSET #[id number]) 04/16/2024 GFR 10/30/2024 05/01/2024, 01/16, 11/30/2023, Additional history exists TSH 11/11/2024 11/12/2023, 03/18, 11/13/2022, Additional history exists CKD PHOS USE SMARTSET 30829 02/10/202501/16, 03/26/2017, 02/18/2017, Additional history exists CKD HGB USE SMARTSET 89221 05/01/202505/01, 02/11/2024, 11/30/2023, Additional history exists Zoster Vaccines Completed 10/28/2018, 01/2019, 11/16/2012 VITAMIN D LEVEL ONCE IN A LIFETIME-USE SMARTSET# 24734 Completed 04/10/2019 HPV (Gardasil) Vaccine Aged Out No lo nger eligible based on patient's age to complete this topic Hepatitis B Vaccine Aged Out No longe r eligible based on patient's age to complete this topic MENINGOCOCCAL (MENACTRA/MENVEO) Aged Out No longer eligible based on patient's age to complete this topic documented as of this encounter Medical Devices Implanted Type Area Sales And Marketing Agent Device Identifier Shelf Expiration Date Model / Serial / Lot Lens 21.5 Mx60 - [id number] - [id number] Implanted:Qty: 1 on 08/24/2017 by Michael Sanders MD at OR [facility] Left: Eye BAUSCH & LOMB : SURGICAL 01/15/2020 MX60-21.5 / [id number] / Lens 22.0 Mx60e - [id number] - [id number] Implanted:Qty: 1 on 06/09/2018 by Michael Sanders MD at OR [facility] Right: Eye BAUSCH & LOMB 12/14/2020 LD29U-78.0 / [id number] / [id number] documented as of this encounter Results * (ABNORMAL) COMPREHENSIVE METABOLIC PANEL (05/01/2024 10:46 AM EST) BUN 20 6 - 20 mg/dL 05/01/2024 11:43 AM EST [facility] CREATININE 1.0 0.5 - 1.0 mg/dL 05/01/2024 11:43 AM EST [facility] [place] [facility] EGFR 57(L) >=60 mL/min 05/01/2024 11:43 AM EST [facility] [place] [facility] Comment:eGFR is calculated b ased on the CKD-EPI 2020 equation. SODIUM 145 135 - 146 mmol/L 05/01/2024 11:43 AM EST [facility] [place] [facility] POTASSIUM 4.9 3.5 - 5.1 mmol/L 05/01/2024 11:43 AM EST [facility] [place] [facility] CHLORIDE 109(H) 98 - 107 mmol/L 05/01/2024 11:43 AM EST [facility] CO2 28 22 - 32 mmol/L 05/01/2024 11:43 AM EST [facility] [place] [facility] ANION GAP 8 7 - 15 mmol/L 05/01/2024 11:43 AM EST [facility] [place] [facility] GLUCOSE 115 70 - 120 mg/dL 05/01/2024 11:43 AM EST [facility] Albumin 4.2 3.8 - 5.0 g/dL 05/01/2024 11:43 AM EST [facility] AST 28 10 - 35 U/L 05/01/2024 11:43 AM EST [facility] Alkaline Phosphatase 80 35 - 130 U/L 05/01/2024 11:43 AM EST [facility] Bilirubin, Total 0.4 <=1.2 mg/dL 05/01/2024 11:43 AM EST [facility] CALCIUM 8.9 8.4 - 10.2 mg/dL 05/01/2024 11:43 AM EST [facility] Protein 5.8(L) 6.0 - 8.3 g/dL 05/01/2024 11:43 AM EST [facility] [place] [facility] ALT 26 10 - 35 U/L 05/01/2024 11:43 AM EST [facility] [place] [facility] Blood Venous blood specimen / Unknown Venipuncture / Unknown 05/01/2024 10:46 AM EST 05/01/2024 10:46 AM EST us Violeta Polk PA-C LAB BLOOD ORDERABLES F inal Result [facility] [place] [facility] [address] [address] * (ABNORMAL) CBC (05/01/2024 10:46 AM EST) WBC 5.40 4.00 - 10.80 K/uL 05/01/2024 10:55 AM EST [facility] [place] [facility] RBC 3.76 3.85 - 5.15 M/uL 05/01/2024 10:55 AM EST [facility] [place] [facility] HGB 10.2(L) 12.0 - 15.3 g/dL 05/01/2024 10:55 AM EST [facility] [place] [facility] HCT 35.0(L) 36.0 - 45.2 % 05/01/2024 10:55 AM EST [facility] [place] [facility] MCV 93.1 81.5 - 97.5 fL 05/01/2024 10:55 AM EST [facility] [place] [facility] MCH 27.1 27.0 - 34.0 pg 05/01/2024 10:55 AM EST [facility] [place] [facility] MCHC 29.1 32.0 - 36.0 g/dL 05/01/2024 10:55 AM EST [facility] [place] [facility] RDW 15.1 11.5 - 15.5 % 05/01/2024 10:55 AM EST [facility] [place] [facility] PLT 168 140 - 400 K/uL 05/01/2024 10:55 AM EST [facility] MPV 10.5 6.6 - 11.1 fL 05/01/2024 10:55 AM EST [facility] Blood Venous blood specimen / Unknown Venipuncture / Unknown 05/01/2024 10:46 AM EST 05/01/2024 10:46 AM EST Violeta Polk PA-C LAB BLOOD ORDERABLES F inal Result [facility] [address] [place] [address] documented in this encounter Visit Diagnoses Diagnosis Chronic heart failure with preserved ejection fraction (HCC)- Primary Paroxysmal atrial fibrillation (HCC) Atrial fibrillation Pulmonary HTN (HCC) Other chronic pulmonary heart diseases Tachy-nguyễn syndrome (HCC) Sinoatrial node dysfunction SOB (shortness of breath) Shortness of breath Pulmonary hypertension (HCC) Other chronic pulmonary heart diseases documented in this encounter Advance Directives * [...] the patient have Health Care Power of Counselling Psychologist? Yes, not currently available * Full Code [...] and were consensually agreed upon. Care Teams Freight Rate Analyst Relationship Specialty Start Date End Date Adams Mcallister MD [address] [facility] [place] [address] PCP - General Internal Medicine 10/24/14 documented as of this encounter
--- OUTSIDE RECORDS SUMMARY | 2024-05-05 08:22 | External Medical Summary | Summary of Care ---
Author Name Unknown Organization [facility] Address [address] [place] [address] Phone [phone] Care Team Providers Care Lozenge Maker Name Role Phone Adams Mcallister MD Primary Care Provider [phone] Reason for Visit * Reason Comments Follow Up Encounter Details Date Type Department Care Team (Late st Contact Info) Description 04/27/2024 11:30 AM EST Office Visit General Surgery, [facility] [address] [place] [address] Anthony Arredondo MD [address] [place] [address] Postgastric surgery syndrome* Allergies Active Allergy Reactions Criticality Noted Date Comments Yayo Inhibitors Other (Please comment) 7 Cough documented as of this encounter (statuses as of 04/27/2024) Medications CENTRUM SILVER OR TABS Take 1 Tablet by mouth in the morning. 0 5 Active LEXAPRO 20 MG PO TABS TAKE 1 TABLET DAILY 30 Tab 5 5 Active Additional Information Patient taking differently: 20 mgOralDaily(AM), Informant: Patient, Reported on 02/04/2024 PREVALITE 4 G PO PACK Taking 1 [...] Other (incisional pain). 30 Tablet 4 Active Additional Information Patient not taking.Reported on 02/04/2024 Furosemide 40 MG Oral Tablet (Lasix)Indicatio ns:Chronic [...] morning 1/2 in the evening, Reported on 02/04/2024 Metoprolol Succinate ER 25 MG Oral Tablet Extended Release 24 Hour (toPROL XL) 1 Tablet in the morning. 4 Active Ventolin HFA 108 (90 Base) MCG/ACT Inhalation Aerosol Solution Inhale 2 Puffs by mouth every 4 hours as needed for Dyspnea or Wheezing. 18 g 3 4 06/18/19 25 Active documented as of this encounter (statuses as of 04/27/2024) Active Problems Problem Noted Date Diagnosed Date [...] as of this encounter (statuses as of 04/27/2024) Resolved Problems Problem Noted Date Diagnosed Date [...] as of this encounter (statuses as of 04/27/2024) Immunizations Name Administration Dates Next Due COVID-19 mRNA, LNP-s, No Pre serve, 2-Dose Series (Moderna) 07/19/2020,06/21/2020 H1N1 2008 Influenza, IM 05/14/2009 Pneumococcal Polysaccharide PPV23 (Pneumovax) [...] Assessment Author No 11/26/2023 11:49 PM EDT [place], R achel A, PERSONAL FINANCIAL REPRESENTATIVE * Are you blind or do you have serious difficulty seeing, even when wearing glasses? Answer Date of Assessment Author No 11/26/2023 11:49 PM EDT [place], R achel A, PERSONAL FINANCIAL REPRESENTATIVE * Do you have serious difficulty walking or climbing stairs? (5 years old or older) Answer Date of Assessment Author No 11/26/2023 11:49 PM EDT [place], R achel A, PERSONAL FINANCIAL REPRESENTATIVE * Do you have difficulty dressing or bathing? (5 years old or older) Answer Date of Assessment Author No 11/26/2023 11:49 PM EDT [place], R achel A, PERSONAL FINANCIAL REPRESENTATIVE * Because of a physical, mental, or emotional condition, do you have difficulty doing errands alone such as visiting a doctors office or shopping? (15 years old or older) Answer Date of Assessment Author No 11/26/2023 11:49 PM EDT [place], R achel A, PERSONAL FINANCIAL REPRESENTATIVE documented as of this encounter Mental Status * Because of a physical, mental, or emotional condition, do you have serious difficulty concentrating, remembering, or making decisions? (5 years old or older) Answer Entry Date Author No 11/26/2023 11:49 PM EDT [place], R achel A, PERSONAL FINANCIAL REPRESENTATIVE documented in this encounter Progress Notes * Anthony Arredondo MD - 04/27/2024 11:30 AM EST [facility]" AT [facility] CLINIC VISIT 04/27/2024 Katherin E Brigida [id number] 78 year old PCP: Adams Mcallister MD Consult requested by: MIS Surgical History: 1) Laparoscopy; Repair Paraesophageal Hernia; for hiatal hernia repair on 11/26/[address] Arredondo 2) Laparoscopic Gastropexy 3) Upper GI Endoscopy, simple primary examination Findings: Type 3 Hiatal Hernia with 40% of stomach within mediastinum Diastasis of Crura: 4 cm HPI: This patient presents for follow up after Laparoscopic Paraesophageal Hernia Repair with Nataliia Gastroplasty No Fundoplication without placement of mesh. Patient denies heart burn, dysphagia, and regurgitation. She is tolerating a soft diet. She explains that she continues to experience shortness of breath which was the primary concern prior to surgery. Preoperative Reflux Symptom Index score was 23. Preoperative GERD-Health Related Quality of Life score was 34. Reflux Symptom Index Evaluation (0-5): Hoarseness or problem with voice: 2 Throat Clearin Excess throat mucus/post-nasal drip: 0 Difficulty swallowing food, liquid, pills: 0 Coughing after eating or lying down: 0 Breathing difficulties or choking episodes: 3 Troublesome or annoying cough: 2 Globus sensation: 0 Heartburn, chest pain, indigestion, or stomach acid coming up: 0 Current RSI Total Score: 9 GERD-HRQL Evaluation (0-5) Global heartburn severity: 0 Supine heartburn: 0 Upright heartburn: 0 Post-parandial heartburn: 0 Does heartburn require dietary modification? 0 Does heartburn awaken from sleep? 0 Difficulty swallowin Pain with swallowin Feelings of gassiness or bloatin Impact of taking medication on daily life:0 Current GERD-HRQL score: 3 QOLRAD completed: no Burping or belching no Tolerating a soft We have DISCONTINUED her NONE . Any history of Martin's esophagitis?No; Follow up EGD? No Complications: Postoperative complications include: 0 - NONE Clavien Score: N/A Unplanned admission to ICU within 30 days? no Readmission with in 30 days? no Interventions/Re-operations within 30 days? no We have obtained the following NEW STUDIES None Current Outpatient Medications Medication Sig Dispense Refill [...] Ellipta 100-62.5-25 MCG/ACT Aerosol Powder Breath Activated (Afrxuwddcxf-Hlhmhxfpcill-Czvzdqlagq) Inhale 1 Puff by mouth in the [...] hours as needed for Other (incisional pain). (Patient not taking: Reported on 02/04/2024) 30 Tablet 0 Furosemide 40 MG Oral Tablet (Lasix) Take 1 Tablet by mouth in the morning. Take 1 tablet in the mouth in the morning and follow-up with your PCP. (Patient taking differently: Take 1 Tablet by mouth in the morning and 1 Tablet before bedtime. Take 1 tablet in the mouth in the morning 1/2 in the evening .) 180 Tablet 3 Metoprolol Succinate ER 25 MG Oral Tablet Extended Release 24 Hour (toPROL XL) 1 Tablet in the morning. Ventolin HFA 108 (90 Base) MCG/ACT Inhalation Aerosol Solution Inhale 2 Puffs by mouth every 4 hours as needed for Dyspnea or Wheezing. 18 g 3 No current facility-administered medications for this visit. Allergies as of 04/27/2024 - Reviewed 04/27/2024 Allergen Reaction Noted Yayo inhibitors Other (Please comment) 03/10/2007 Physical Exam: 04/27/2024: There were no vitals taken for this visit. 12/07/2023 BP 125/75 | Pulse 88 | Temp 36.7 C (98 F) | Ht 1.6 m (5' 3") | Wt 86.2 kg (190 lb) | BMI 33.66 kg/m | BSA 1.96 m General: Alert and appropriate. Well-appearing and in no distress Lungs: no wheezing appreciated, diminished breath sounds b/l Abdomen: Soft; Nontender; NO Distention; NO Organomegaly; NO Masses; Wounds: healing well Hernia; NONE Impression: Excellent progress after 1) Laparoscopy; Repair Paraesophageal Hernia; for hiatal hernia repair on 11/26/[address] Arredondo 2) Laparoscopic Gastropexy 3) Upper GI Endoscopy, simple primary examination The patient's preoperative symptoms of Heartburn up to cervical esophagus, Dysphagia, Regurgitation, Dyspnea with exertion, Hemoptysis, Sputum, anorexia, and early satiety have significantly improvedon medication. Plan: 1) Diet: Regular diet 2) Activity: Unlimited 3) Follow up visit scheduled in [facility] ("[facility]"): 9 months at [facility] 4) Wound: Healed 5) Medications: Omeprazole discontinued. 6) Follow up with Pulmonology. Anthony Arredondo MD, FACS, [facility] Extension Course Counselor [facility] Minimally Invasive/ Bariatric Surgery Fellowship documented in this encounter Nursing Notes * Kaylee Martins LPN - 04/27/2024 11:23 AM EST Pt presents in office for 4 month follow up of hiatal hernia, barium in April No concerns documented in this encounter Plan of Treatment Upcoming Encounters Date Type Department Care Team (Late st Contact Info) Description 05/01/2024 10:00 AM EST Office Visit Cardiology, [facility] [address] [place] [address] Violeta Polk PA-C [address] [place] [address] 05/23/2024 10:00 AM EST PulmDiagnostic Pulmonary Function Lab, [facility] [address] [facility] [place] [address] [place], [address] [place] [address] 06/01/2024 11:00 AM EST Cardiac Studies Cardiac Studies, [facility] [address] [place] [address] 06/20/2024 10:00 AM EST Office Visit Pulmonary Medicine, [facility] [address] [place] [address] Ortiz Camp MD [address] [place] [address] 09/13/2024 9:15 AM EDT Imaging Radiology [facility] [address] [place] [address] 09/19/2024 3:20 PM EDT Office Visit Sleep Disorders Ctr [facility] [address] [place] [id number] Liana Segura, [address] [place] [address] 01/02/2025 2:40 PM EDT Office Visit Nephrology, [facility] [address] [place] [address] Reji Vidales MD [address] [place], [place] [address] 02/01/2025 11:30 AM EDT Office Visit General Surgery, [facility] [address] [place] [address] Anthony Arredondo MD [address] [place] [address] Health Maintenance Due Date Last Done Comments [...] Additional history exists CKD HGB USE SMARTSET 62926 02/10/202502/10, 11/30/2023, 11/30/2023, Additional history exists CKD PHOS USE SMARTSET 31024 02/10/202501/16, 03/26/2017, 02/18/2017, Additional history exists Zoster Vaccines Completed 10/28/2018, 01/2019, 11/16/2012 VITAMIN D LEVEL ONCE IN A LIFETIME-USE SMARTSET# [id number] Completed 04/10/2019 HPV (Gardasil) Vaccine Aged Out No lo nger eligible based on patient's age to complete this topic Hepatitis B Vaccine Aged Out No longe r eligible based on patient's age to complete this topic MENINGOCOCCAL (MENACTRA/MENVEO) Aged Out No longer eligible based on patient's age to complete this topic documented as of this encounter Medical Devices Implanted Type Area Cut Out Stitcher Device Identifier Shelf Expiration Date Model / Serial / Lot Lens 21.5 Mx60 - [id number] - [id number] Implanted:Qty: 1 on 08/24/2017 by Michael Sanders MD at OR [facility] Left: Eye BAUSCH & LOMB : SURGICAL 01/15/2020 MX60-21.5 / [id number] / Lens 22.0 Mx60e - [id number] - [id number] Implanted:Qty: 1 on 06/09/2018 by Michael Sanders MD at OR [facility] Right: Eye BAUSCH & LOMB 12/14/2020 EZ11K-28.0 / [id number] / [id number] documented as of this encounter Visit Diagnoses Diagnosis 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 Yes, not currently available * Full Code [...] and were consensually agreed upon. Care Teams Lozenge Maker Relationship Specialty Start Date End Date Adams Mcallister MD [address] [place] [facility] [place] [address] PCP - General Internal Medicine 10/24/14 documented as of this encounter
[2024-05-05] MEDS ORDERED: NON-FORMULARY MEDICATION (Fluticasone-Umeclidin-Vilanter [Trelegy Ellipta] 100-62.5-25 mcg INH SCH (09:00)
[2024-05-05] MEDS: LOSARTAN POTASSIUM 25 MG TAB PO SCH (10:03)
--- NOTE | 2024-05-05 13:43 | Hospitalist Progress Note ---
Date of Service May 05, 2024 Assessment & Plan (1) Acute on chronic diastolic congestive heart failure: Plan: improved s/p diuresis standing scale weight this afternoon is only about 1-2 pounds above her listed dry weights she looks compensated on exam as well cont lasix qam and qafternoon echo today - unchanged from previous echo; EF 50s; no new areas of wall motion abnormality cont meto succ (2) Atrial fibrillation: Plan: cont amiodarone to maintain NSR outpatient cardiology notes from earlier this month reference that her last pacemaker interrogation showed 0% a.fib burden cont meto succ cont Eliquis BID (3) Hypertension: Plan: controlled (4) DM type 2 (diabetes mellitus, type 2): Plan: a1c 6.2% cont novolog sliding scale (5) Anemia: Plan: new dating back to earlier this summer check FE studies, b12, folate (6) Left arm pain: Plan: doubt symptom of CAD troponins negative, no WMA on echo, etc. further, had cath in 2022 showing mild/mod nonobstructive CAD only musculoskeletal ? 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 30% ostial RCA/circumflex. 30 to 40% proximal circumflex stenosis cont meto succ, losartan, statin, Eliquis (8) Dyspnea on exertion: Plan: follows with [facility] for this even following diuresis I had staff walk patient in hallway and she was severely dyspneic will obtain chest CT, noncon -- rule out ILD from amiodarone, other pathology Plan hypothyroidism - cont synthroid; TSH 4.7; has not had a normal TSH since 2022 defer to outpatient providers pacemaker - interrogation performed, awaiting report back to [facility] tomorrow ? Admission and Anticipated Discharge Date Admission Date: May 04, 2024 Subjective patient reports that she has had had chronic dyspnea on exertion for several years but recently it was much worse the acute worsening is improved today she states that when she woke up this am the breathing was improved had had pain in her posterior left neck with radiation to the upper left arm and to the left jaw region - that has resolved and has not recurred no chest pain tele - pacing Review of Systems Review of Systems: gen - no fevers cv - no chest pain pulm - no wheezing Physical Exam Physical Exam: gen - NAD, lying comfortably in bed neck - no JVD mouth - MMM heart - RRR, s1 s2, 2/6 systolic murmur LSB lungs - minimal faint dry rales bases only, otherwise CTA b/l abd - soft NT ND BS+ ext - no edema, pulses 2+ b/l musculo - no reproducible pain with movement of the left arm or neck Results & Data Results & Data Vital Signs (Past 12 Hours) Vital Signs Temp Pulse Pulse Resp BP BP Pulse Ox 05/05/24 11:19 36.9 C 72 20 118/69 96 05/05/24 08:00 60 05/05/24 05:36 60 26 H 05/05/24 05:12 61 27 H 05/05/24 04:45 62 25 H 05/05/24 04:30 69 15 05/05/24 04:27 82 28 H 05/05/24 04:03 60 24 05/05/24 03:51 60 23 05/05/24 03:21 65 31 H 05/05/24 03:15 64 20 05/05/24 03:00 61 22 05/05/24 02:55 122/50 L 05/05/24 02:55 122/50 L 05/05/24 02:48 62 14 05/05/24 02:42 61 28 H 05/05/24 02:30 60 21 05/05/24 02:21 62 21 05/05/24 02:12 65 19 05/05/24 02:03 63 20 05/05/24 01:50 60 22 05/05/24 01:44 60 24 O2 Del Method 05/05/24 11:19 Room Air 05/05/24 08:00 05/05/24 05:36 05/05/24 05:12 05/05/24 04:45 05/05/24 04:30 05/05/24 04:27 05/05/24 04:03 05/05/24 03:51 05/05/24 03:21 05/05/24 03:15 05/05/24 03:00 05/05/24 02:55 05/05/24 02:55 05/05/24 02:48 05/05/24 02:42 05/05/24 02:30 05/05/24 02:21 05/05/24 02:12 05/05/24 02:03 05/05/24 01:50 05/05/24 01:44 Laboratory Results Laboratory Results - last 24 hr 05/05/24 05/05/24 05/05/24 04:42 07:27 11:04 WBC 4.87 RBC 3.62 L Hgb 9.6 L Hct 31.8 L MCV 87.8 MCH 26.5 MCHC 30.2 L RDW Std Deviation 47.7 H RDW Coeff of Kamala 14.7 H Plt Count 161 MPV 11.2 Immature Gran % (Auto) 0.4 Neut % (Auto) 56.1 Lymph % (Auto) 23.2 Tompkins % (Auto) 12.1 Eos % (Auto) 7.0 Baso % (Auto) 1.2 Neut # (Auto) 2.73 Lymph # (Auto) 1.13 L Tompkins # (Auto) 0.59 Eos # (Auto) 0.34 Baso # (Auto) 0.06 Immature Gran # (Auto) 0.02 Sodium 144 Potassium 4.1 Chloride 110 H Carbon Dioxide 26 Anion Gap 8 BUN 24 H Creatinine 0.95 Est Cr Clr Drug Dosing 56.1 eGFR 60.95 BUN/Creatinine Ratio 25.3 H Glucose 94 POC Glucose 94 98 Estimat Average Glucose 131 Hemoglobin A1c 6.2 H Calcium 8.4 L Phosphorus 4.6 Magnesium 2.1 Troponin I High Sens 10.1 Albumin 3.9 Triglycerides 158 H Cholesterol 138 LDL Cholesterol, Calc 62 VLDL Cholesterol, Calc 32 H HDL Cholesterol 44 Cholesterol/HDL Ratio 3.1 PG Care Time/CCT Total # of Minutes Spent Total Time Spent with Patient: Total time spent is greater than 50% in coordination of care (as documented) at patient's floor/unit and/or counseling patient: Coding Level of Care Code 41022 SUB INP/OBS CARE 3/50MIN Diagnoses Acute on chronic diastolic congestive heart failure I50.33 Atrial fibrillation I48.91 Hypertension I10 DM type 2 (diabetes mellitus, type 2) E11.9 Anemia D64.9 Left arm pain M79.602 Nonobstructive atherosclerosis of coronary artery I25.10 Dyspnea on exertion R06.09
--- NOTE | 2024-05-05 17:54 | XCELERA ---
[id number] [id number]
[2024-05-05] MEDS: FUROSEMIDE 40 MG TAB PO SCH (20:48)
--- NOTE | 2024-05-06 00:57 | CT Scan Report ---
Exam(s): CT CHEST Without Contrast EXAM: CT Chest Without Intravenous Contrast CLINICAL HISTORY: Recent CHF, severe dyspnea, chronic amiodarone use. TECHNIQUE: Axial computed tomography images of the chest without intravenous contrast. CTDI is 21.61 mGy and DLP is 687.33 mGy-cm. Automated exposure control was utilized for the study. A dose lowering technique was utilized adhering to the principles of ALARA. COMPARISON: No relevant prior studies available. FINDINGS: Lungs: No significant interstitial lung disease or pneumonitis. No mass. No consolidation. Minimal dependent atelectasis. Pleural space: No pneumothorax. No pleural effusion. Heart: Mild cardiomegaly. No significant pericardial effusion. Coronary artery calcifications. Bones/joints: Dextroscoliosis and degenerative changes of the spine. No acute fracture. Soft tissues: Unremarkable. Vasculature: Unremarkable. No thoracic aortic aneurysm. Lymph nodes: Unremarkable. No enlarged lymph nodes. Lines: Left subclavian dual-lead pacemaker. Abdomen: Post cholecystectomy. IMPRESSION: No interstitial pneumonitis or lung parenchymal changes to indicate amiodarone-induced lung disease. No CHF or infiltrate. Minimal dependent atelectasis. Cardiomegaly. Atherosclerotic vascular calcifications. Electronically signed by: Alessandro Perez M.D. 05/06/24 00:56 AM
[2024-05-06 04:03] VITALS: TEMP 98.2
[2024-05-06 04:40] LABS: Basophils # (auto) 0.07 K/uL (0.00-0.20); Basophils % (auto) 1.7 %; Eosinophils # (auto) 0.26 K/uL (0.00-0.50); Eosinophils % (auto) 6.3 %; Hematocrit (blood only) 35.1 % (37.0-47.0); Hemoglobin 10.6 g/dl (12.0-16.0); Immature Granulocytes # (auto) 0.02 K/uL (0.01-0.20); Immature Granulocytes % (auto) 0.5 %; Lymphocytes # (auto) 1.03 K/uL (1.20-3.40); Mean Corpuscular Hemoglobin 26.3 pg (25.0-34.0); Mean Corpuscular Hgb Conc 30.2 g/dL (32.0-36.0); Mean Corpuscular Volume 87.1 fL (80.0-100.0); Monocytes # (auto) 0.55 K/uL (0.11-0.59); Monocytes % (auto) 13.3 %; Neutrophils # (auto) 2.19 K/uL (1.40-6.50); Neutrophils % (auto) 53.2 %; Platelet Count 165 K/uL (130-400); RDW Coefficient of Variation 14.8 % (11.5-14.5); Red Blood Count 4.03 M/uL (4.20-5.40); White Blood Count 4.12 K/ul (4.8-10.8)
[2024-05-06 04:57] LABS: BUN Creatinine Ratio 24.8 (10-20); Calcium 8.6 mg/dl (8.6-10.3); Creatinine Clr Calc Pharmacy 40.6 ml/min; Phosphorus 5.4 mg/dl (2.5-4.9)
[2024-05-06 06:14] LABS: Ferritin 13.8 ng/ml (8-388)
[2024-05-06 06:40] LABS: Folate (Folic Acid),Ser orPlas > 22.30 ng/ml (>5.38)
[2024-05-06 06:41] LABS: Vitamin B12 491 pg/ml (180-914)
[2024-05-06 07:57] VITALS: BP 105/62; RESP 16
[2024-05-06] MEDS: IRON SUCROSE 300 MG in SODIUM CHLORIDE 0.9% 250 ML IV ONE (10:55)
--- NOTE | 2024-05-06 12:39 | Electrocardiogram Report ---
Test Reason : Blood Pressure : */* mmHG Vent. Rate : 61 BPM Atrial Rate : 61 BPM P-R Int : 170 ms QRS Dur : 104 ms QT Int : 470 ms P-R-T Axes : * -32 -42 degrees QTcB Int : 473 ms AV dual-paced rhythm Abnormal ECG When compared with ECG of 07-Nov-2022 15:30, No significant change was found Confirmed by Hussein Meier ([id number]) on 05/06/2024 12:38:22 PM Referred By: REFERRED SELF Confirmed By: Hussein Meier
--- NOTE | 2024-05-06 12:39 | Electrocardiogram Report ---
Test Reason : Blood Pressure : */* mmHG Vent. Rate : 61 BPM Atrial Rate : 71 BPM P-R Int : 176 ms QRS Dur : 108 ms QT Int : 490 ms P-R-T Axes : * -30 -31 degrees QTcB Int : 493 ms Poor data quality, interpretation may be adversely affected AV dual-paced rhythm Abnormal ECG When compared with ECG of 04-May-2024 16:49, (unconfirmed) No significant change was found Confirmed by Hussein Meier ([id number]) on 05/06/2024 12:38:37 PM Referred By: REFERRED SELF Confirmed By: Hussein Meier
--- NOTE | 2024-05-06 12:41 | Discharge Summary ---
Discharge Summary Date of Service May 06, 2024 Principal Dx & Hospital Course #1 = Principal Diagnosis (1) Acute on chronic diastolic congestive heart failure: improved s/p diuresis standing scale weight this afternoon is only about 1-2 pounds above her listed dry weights she looks compensated on exam as well cont lasix qam and qafternoon echo today - unchanged from previous echo; EF 50s; no new areas of wall motion abnormality cont meto succ (2) Atrial fibrillation: cont amiodarone to maintain NSR outpatient cardiology notes from earlier this month reference that her last pacemaker interrogation showed 0% a.fib burden cont meto succ cont Eliquis BID (3) Hypertension: controlled (4) DM type 2 (diabetes mellitus, type 2): a1c 6.2% cont novolog sliding scale (5) Anemia: new dating back to earlier this summer check FE studies, b12, folate (6) Left arm pain: doubt symptom of CAD troponins negative, no WMA on echo, etc. further, had cath in 2022 showing mild/mod nonobstructive CAD only musculoskeletal ? 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 30% ostial RCA/circumflex. 30 to 40% proximal circumflex stenosis cont meto succ, losartan, statin, Eliquis (8) Dyspnea on exertion: follows with [facility] for this even following diuresis I had staff walk patient in hallway and she was severely dyspneic will obtain chest CT, noncon -- rule out ILD from amiodarone, other pathology Plan hypothyroidism - cont synthroid; TSH 4.7; has not had a normal TSH since 2022 defer to outpatient providers pacemaker - interrogation performed, awaiting report back to [facility] tomorrow ? Admission HPI Per Admitting Provider The patient is a 78-year-old female with a past medical history including atrial fibrillation on chronic anticoagulation, HFpEF, diabetic peripheral neuropathy, hypertension, anxiety and depression, hyperlipidemia, and ORTEGA. She presents to the emergency department after developing left sided chest pressure with radiation to left shoulder and left side of neck. In the emergency department, she was found to have chest x-ray suggestive of CHF, was given furosemide 40 mg IV by the ED, and then referred for evaluation for admission Discharge Exam gen - NAD, lying comfortably in bed neck - no JVD mouth - MMM heart - RRR, s1 s2, 2/6 systolic murmur LSB lungs - minimal faint dry rales bases only, otherwise CTA b/l abd - soft NT ND BS+ ext - no edema, pulses 2+ b/l musculo - no reproducible pain with movement of the left arm or neck Discharge Plan Discharge Items Patient Disposition: Home - Self-Care Reason For Visit: CHF EXACERBATION Discharge Diagnosis: 1. congestive heart failure exacerbation - resolved 2. left arm pain - no evidence of heart attack; suspect musculoskeletal pain 3. left chest discomfort - no evidence of heart attack; suspect musculoskeletal pain 4. chronic shortness of breath with activity - exact cause uncertain; continue to follow-up with [facility] 5. iron deficiency anemia - discharge hemoglobin level 10.6 - [facility] follow-up needed 6. pacemaker 7. history of atrial fibrillation Activity: Resume your previous activity Non-emergency contact: Primary Care Provider and Specialist Call non-emergency contact if: you have any medication questions and your symptoms worsen Follow-up/Referrals: Cynthia Cummings [Primary Care Provider] - (see Dr Mcallister within 5 days ) Diet: Heart Healthy Fluids: 1800ml (7 cups) Addtl Attending Provider Instructions: Ms Allred, You were hospitalized after having had worsening shortness of breath as well as pain in the upper portion of your left arm, upper left chest, and along the left neck. Upon admission you had evidence of water build-up in the lungs. This was due to congestive heart failure. We did not find any evidence of heart attack. You received IV lasix during your stay with improvement in the water build-up and improvement in your breathing. The left arm and chest discomfort resolved and did not recur. We performed a series of tests including - * echocardiogram - it was UNCHANGED from your prior echocardiogram done through the [facility] clinic * CT scan of the lungs - pneumonia, lung disease, tumor, etc were NOT seen * pacemaker interrogation * blood work for the heart - did not show evidence of heart attack In addition, we found that you were mildly anemic. Anemia is when your red cells are low in the bloodstream. The cause of your anemia is iron deficiency. (see handout) The most common cause of iron deficiency in adults is blood loss via the gastrointestinal tract. We gave you 1 dose of IV iron while here. You will need to see Dr Selby with [facility]. He will likely recommend upper and lower endoscopies to check for causes of gastrointestinal bleeding. At time of discharge your weight is 87.6kg. According to records this is your "dry weight" - that is, this is your weight when you are not retaining excess water. Please plan to check your weight EVERY MORNING ON THE SAME SCALE. If you notice any weight gain of more than 3 pounds over 1-2 days this may be a sign of fluid/water weight gain. Call Dr Mcallister or Violeta Polk if you notice this pattern. Please have Dr Mcallister repeat your iron levels and blood counts over the next 7- 10 days. You may need additional IV iron infusions. Also have Dr Mcallister repeat your kidney function level within the next week. You can resume your furosemide diuretic and your potassium supplements TOMORROW on 05/07/24. DO NOT TAKE any CANDESARTAN until you see Dr Mcallister in follow-up. As I mentioned I will send copies of all of your test results to Dr Mcallister, Violeta Polk, as well as [facility]. Return to [facility] if - * you have worsening shortness of breath * you have recurrent chest pains * you have fever over 100 degrees * you see black, tarry, or dark stools (possible sign of gastrointestinal bleeding) * you see bright red blood in your stools * any other concerns It was our pleasure to care for you! Happy holidays :) Addtl Chuck Splitter Provider Instructions: Call 911 and go to the Emergency Room if: * You have tightness or pain in your chest that does not go away with rest or Nitroglycerin * You are very short of breath even with rest Call your doctor if any of the following symptoms or problems start or get worse: * Shortness of breath or difficulty breathing * Wake up at night short of breath * Chest pain * Cough * Swelling of your hands, fee, or legs * More fatigued or tired with your normal activity * Palpitations - sudden fast heart beats WEIGHT * Weigh yourself every morning after using the bathroom. * Use the same scale. * Wear the same amount of clothing. * Write your weight down on your chart. * Call your doctor if you gain more than 3 pounds in 1-2 days. MEDICATIONS * Use this discharge instruction sheet for instructions. * Take your medications at the time your doctor ordered. * Do not skip a dose of your medicines. * If you miss a dose of medicine, take as soon as possible, but DO NOT DOUBLE A DOSE. * Read your medicine information when you get home. * Know all of the side effects of your medicine. * Call your doctor's office if you have any side effects. * Be sure all of your doctors know what medicine and herbs you take (including cold, flu, and herbal medicine). * Pain Medicine: If you do not get relief from your pain, please call your doctor for help. Take the following with you to your follow-up doctor appointments: * Weight Chart * Medication List * List of questions Do not drink excessive alcohol, beer or wine. Pending Studies at Discharge: No Stand-Alone Forms: My [facility] [employer], Smoking Cessation Medications and DC Order Prescriptions: Continued Trelegy Ellipta 100-62.5-25 mcg blister with device 1 inh inhalation QAM escitalopram oxalate 20 mg tablet 20 mg PO QAM alprazolam 0.5 mg tablet 0.5 mg PO .UD PRN (Reason: Anxiety) Prevalite 4 gram powder 4 gm PO BID coenzyme Q10 100 mg capsule 200 mg PO QAM multivitamin Tablet 1 tab PO QPM rosuvastatin [Crestor] 40 mg Tablet 40 mg PO HS omeprazole 40 mg Capsule,Delayed Release(Dr/Ec) 40 mg PO QPM amiodarone 200 mg Tablet 200 mg PO DAILY Eliquis 5 mg tablet 5 mg PO BID levothyroxine 125 mcg tablet 125 mcg PO DAILYBB metoprolol succinate 25 mg tablet extended release 24 hr 25 mg PO QAM pramipexole 0.5 mg tablet 0.5 mg PO HS albuterol sulfate 90 mcg/actuation HFA aerosol inhaler 2 puff INHALATION Q6H PRN (Reason: Shortness Of Breath Or Wheezing) magnesium oxide 400 mg magnesium Tablet 400 mg PO QAM PreserVision AREDS-2 250-90-40-1 mg Capsule 1 tab PO AMHS Held potassium citrate 10 mEq (1,080 mg) tablet extended release 2,160 mg PO BID Hold Instructions: Resume on 05/07/24. candesartan 4 mg tablet 2 mg PO QAM Hold Instructions: please HOLD until you see Dr Mcallister furosemide 40 mg tablet 60 mg PO QAM Hold Instructions: Resume on 05/07/24. furosemide 40 mg tablet 40 mg PO QPM Hold Instructions: Resume on 05/07/24. Discharge Orders: Discharge Order (Routine); Ordered 05/06/24 Ordered By: Tray Morris/Other Patient Handouts: ED Anemia, Iron-Deficiency (Adult) Admission Data Admit Date/Time: 05/04/24 20:28 Attending Provider: Tray Abraham Admit Provider: Zia Mckeon Primary Care Provider: Cynthia Cummings Other Providers: Zia Mckeon Hospital Stay Data Consultations 05/04/24 19:13 ED Decision to Admit Stat Diagnostic Imagining Performed 05/05/24 19:57 CT chest diagnostic wo con Routine Pending Results Patient Have Any Pending Studies at Discharge: No Discharge Instructions Given to Patient (Per Discharging Provider) Ms Allred, Edi were hospitalized after having had worsening shortness of breath as well as pain in the upper portion of your left arm, upper left chest, and along the left neck. Upon admission you had evidence of water build-up in the lungs. This was due to congestive heart failure. We did not find any evidence of heart attack. You received IV lasix during your stay with improvement in the water build-up and improvement in your breathing. The left arm and chest discomfort resolved and did not recur. We performed a series of tests including - * echocardiogram - it was UNCHANGED from your prior echocardiogram done through the [facility] clinic * CT scan of the lungs - pneumonia, lung disease, tumor, etc were NOT seen * pacemaker interrogation * blood work for the heart - did not show evidence of heart attack In addition, we found that you were mildly anemic. Anemia is when your red cells are low in the bloodstream. The cause of your anemia is iron deficiency. (see handout) The most common cause of iron deficiency in adults is blood loss via the gastrointestinal tract. We gave you 1 dose of IV iron while here. You will need to see Dr Selby with [facility]. He will likely recommend upper and lower endoscopies to check for causes of gastrointestinal bleeding. At time of discharge your weight is 87.6kg. According to records this is your "dry weight" - that is, this is your weight when you are not retaining excess water. Please plan to check your weight EVERY MORNING ON THE SAME SCALE. If you notice any weight gain of more than 3 pounds over 1-2 days this may be a sign of fluid/water weight gain. Call Dr Mcallister or Violeta Polk if you notice this pattern. Please have Dr Mcallister repeat your iron levels and blood counts over the next 7- 10 days. You may need additional IV iron infusions. Also have Dr Mcallister repeat your kidney function level within the next week. You can resume your furosemide diuretic and your potassium supplements TOMORROW on 05/07/24. DO NOT TAKE any CANDESARTAN until you see Dr Mcallister in follow-up. As I mentioned I will send copies of all of your test results to Dr Mcallister, Violeta Polk, as well as [facility]. Return to [facility] if - * you have worsening shortness of breath * you have recurrent chest pains * you have fever over 100 degrees * you see black, tarry, or dark stools (possible sign of gastrointestinal bleeding) * you see bright red blood in your stools * any other concerns It was our pleasure to care for you! Happy holidays :) Coding Diagnoses Acute on chronic diastolic congestive heart failure I50.33 Atrial fibrillation I48.91 Hypertension I10 DM type 2 (diabetes mellitus, type 2) E11.9 Anemia D64.9 Left arm pain M79.602 Nonobstructive atherosclerosis of coronary artery I25.10 Dyspnea on exertion R06.09
--- NOTE | 2024-05-06 12:47 | Electrocardiogram Report ---
Test Reason : Blood Pressure : */* mmHG Vent. Rate : 62 BPM Atrial Rate : 63 BPM P-R Int : 178 ms QRS Dur : 104 ms QT Int : 476 ms P-R-T Axes : * -30 235 degrees QTcB Int : 483 ms AV dual-paced rhythm Abnormal ECG When compared with ECG of 05-May-2024 06:14, (unconfirmed) No significant change was found Confirmed by Hussein Meier ([id number]) on 05/06/2024 12:47:41 PM Referred By: REFERRED SELF Confirmed By: Hussein Meier
[2024-05-06 15:15] VITALS: PULSE 61; O2SAT 96
== END 2024-05-06 15:30 | disposition home or self-care (01) | DRG 291 ==
LOC: ED 16:31 → 1E 20:28 → SUATTDRO 20:28 → 1E 23:09

== ENCOUNTER 2025-03-16 21:20 | Inpatient (IN) ==
[2025-03-16 22:31] LABS: Appearance Urine Cloudy (Clear); Bacteria Urine Automated None Seen (None Seen); Epithelial Cell Urine Auto 0-2 /hpf (0-2); Glucose Urine UA Negative (Negative); WBC Urine Automated 0-5 /hpf (0-5)
[2025-03-16 22:33] LABS: Hematocrit (blood only) 37.9 % (37.0-47.0); Hemoglobin 11.7 g/dl (12.0-16.0); Immature Granulocytes # (auto) 0.05 K/uL (0.01-0.20); Immature Granulocytes % (auto) 0.5 %; Mean Corpuscular Hemoglobin 30.2 pg (25.0-34.0); Mean Corpuscular Volume 97.7 fL (80.0-100.0); Platelet Count 163 K/uL (130-400); RDW Standard Deviation 49.2 fL (36.4-46.3); Red Blood Count 3.88 M/uL (4.20-5.40); White Blood Count 9.45 K/ul (4.8-10.8)
[2025-03-16 22:58] LABS: Alanine Aminotransferase 26 U/L (7-52); Albumin Globulin Ratio 1.6 (0.9-2); Albumin Level 4.0 gm/dl (3.4-5.0); Alkaline Phosphatase 81 U/L (34-104); Anion Gap 8 (3-11); Bilirubin,Total 0.6 mg/dl (0.2-1.0); Blood Urea Nitrogen 40 mg/dl (6-23); Calcium 8.9 mg/dl (8.6-10.3); Carbon Dioxide 32 mmol/L (21-32); Chloride 101 mmol/L (98-107); Globulin 2.5 gm/dl (2.5-4.0); Glucose 118 mg/dl (70-99(Fasting)); Potassium 4.9 mmol/L (3.5-5.1); Sodium 141 mmol/L (136-145); Total Protein 6.5 gm/dl (6.0-8.3)
[2025-03-16] MEDS: ONDANSETRON INJ 2 MG/ML 2 ML VIAL IV STA (23:38)
[2025-03-16] MEDS: HYDROmorphone INJ 0.5 MG/0.5 ML SYR IV STA (23:38)
[2025-03-16] MEDS: SODIUM CHLORIDE 0.9% 1,000 ML IV ONE (23:38)
--- NOTE | 2025-03-16 23:41 | Emergency Department Note ---
Impression & Plan Hydronephrosis with renal and ureteral calculus obstruction Admit to the [facility] ED Provider Note NAME: MARTY RAMOS AGE: 79 SEX: Female INFORMANT: Patient ED PROVIDER(S): Karin Gaona DO CHIEF COMPLAINT: left flank pain PLAN: Disposition: admit to the [facility] MEDICAL DECISION MAKING: This is an 79-year-old female patient who presents back to the emergency department from [facility] with recurrent left flank pain. Patient was diagnosed yesterday with a left 6mm ureteral stone. She was treated for pain yesterday and discharged back feeling better but the pain returned. On presentation today, the patient doubled her creatinine and has a BUN of 40. urinalysis shows hematuria but no signs of infection. She was treated with IV normal saline, IV Dilaudid and IV Zofran. I discussed the case with the [facility] and they will evaluate for further inpatient care. 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 Vital Signs: reviewed and unremarkable Chronic Medical/Social Conditions affecting care: long history of ureteral stones Prior/ Outside/ External records reviewed: CT scan from yesterday reviewed Differential Diagnosis: obstructive uropathy, acute kidney injury, UTI, infected stone HPI: 79 year old Female arrives for evaluation of left flank pain. presents back to the emergency department from [facility] with recurrent left flank pain. Patient was diagnosed with a left 76 mm ureteral stone. She was treated for pain yesterday and discharged back feeling better but the pain returned. PAST MEDICAL HISTORY: See Below, PAST SURGICAL HISTORY: See Below, SOCIAL HISTORY: See Below, HOME MEDICATIONS: See list ALLERGIES: see list VITALS: See Below PHYSICAL EXAMINATION: HEENT: Head - normocephalic and atraumatic. Pupils are equal, round, and reactive to light. Extraocular eye muscles are intact, and sclera are anicteric. Nose - moist nasal mucosa without discharge. Mouth - moist buccal mucosa. Oropharynx is nonerythematous and there is no tonsillar exudate or edema noted. Neck: Supple; no cervical lymphadenopathy Heart: Regular rate and rhythm. There is a normal S1 and S2 with no murmurs, clicks, or gallops appreciated. Lungs: Clear to auscultation bilaterally with no wheezes, rales, or rhonchi. Abdomen: Soft, completely nontender, nondistended, with good bowel sounds. There are no palpable pulsatile masses or hepatosplenomegaly. There is no guarding, rigidity, or rebound noted. Extremities: No evidence of cyanosis, clubbing, or edema. There are easily palpable peripheral pulses. Skin: warm and dry with good turgor and no rashes. Back: Left CVA tenderness Emergency Department treatment: IV Dilaudid, IV Zofran, IV normal saline Emergency Department course: The patient was evaluated in room C-3. A complete history and physical was performed. Previous electronic medical records were reviewed. IV lock was initiated and labs were drawn as above. Urinalysis was collected. Patient was given a dose of IV Zofran and IV Dilaudid. She was bolused with IV normal saline solution. This gave her moderate relief of her pain but I remain concerned with the size of the stone. I discussed the case with the [facility] Hospitalist and they will evaluate for further inpatient care and urological evaluation. Past Med/Surg History Problem List (Updated 03/17/25 @ 15:21 by Karin Gaona DO) Hydronephrosis with renal and ureteral calculus obstruction (Acute) Acute renal failure Calculus of distal left ureter (Acute) (HFpEF) heart failure with preserved ejection fraction Nonobstructive atherosclerosis of coronary artery Anemia Diabetic ulcer of left great toe (Acute) Loss of protective sensation of skin of foot Diabetic peripheral neuropathy associated with type 2 diabetes mellitus DM type 2 (diabetes mellitus, type 2) NIDDM - unable to tolerate the metformin, currently diet regulated and monitoring currently. Atrial fibrillation newly dx, May 2022. following with Dr Bacon & Dr Jacob. ORTEGA (obstructive sleep apnea) Mild per records Anxiety and depression Hyperlipidemia Medical History (Updated 03/17/25 @ 15:21 by Karin Gaona DO) Callus of toe Personal history of diabetic foot ulcer Pulmonary nodule Chronic cholecystitis Hypertension Diabetes mellitus Diabetic neuropathy Pacemaker Hiatal hernia GERD (gastroesophageal reflux disease) Stress incontinence RLS (restless legs syndrome) Renal cyst History of nephrolithiasis History of squamous cell carcinoma History of basal cell carcinoma Surgical History S/P hernia repair History of esophagogastroduodenoscopy (EGD) History of cholecystectomy 2020 History of non-cataract eye surgery History of cataract surgery History of tonsillectomy History of lithotripsy History of colonoscopy History of hysterectomy History of appendectomy Family History Father Cancer Hypertension Diabetes Other No family history of adverse response to anesthesia No significant family history Social History Smoking Status: Never smoker Second Hand Exposure: Yes (spouse used to smoke alot); Do You Dip or Chew Tobacco: No; Hx Alcohol Use: No Hx Substance Use: No Preferred Language: Yoruba Communication Ability: Effective Visual Impairment: Limited Hearing Ability: Normal Logging 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 Supervisor Required: No Beliefs That Will Affect Care: None marital status: / Current Living Situation: Residential Current Living Situation Comment: [place] current occupational status: retired 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 [employer] How many Children do You have: 0 Feels Safe at Home: Yes Diet: diabetic and ideal protein during the past year weight has: remained stable Assistive Devices: Glasses and Walker Allergies Allergies Allergy/AdvReac Type Severity Reaction Status Date / Time JOSE Inhibitors AdvReac Intermediate COUGH Verified 03/17/25 00:01 Home Meds Home Medications Medication Instructions Recorded Confirmed escitalopram oxalate 20 mg tablet 20 mg PO QAM 02/15/19 03/17/25 potassium citrate 10 mEq (1,080 20 meq PO BID 11/07/19 03/17/25 mg) tablet,extended release coenzyme Q10 100 mg capsule 200 mg PO QAM 02/16/20 03/17/25 multivitamin 1 tab PO QPM 02/16/20 03/17/25 rosuvastatin 40 mg tablet (Crestor) 40 mg PO HS 03/08/20 03/17/25 amiodarone 200 mg tablet 200 mg PO DAILY 08/25/22 03/17/25 omeprazole 40 mg capsule,delayed 40 mg PO QPM 08/25/22 03/17/25 release apixaban 5 mg tablet (Eliquis) 5 mg PO BID 11/07/22 03/17/25 fluticasone fur. 100 mcg-umeclid 1 inh inhalation QAM 02/11/24 03/17/25 62.5 mcg-vilant 25 mcg inhalat.powder (Trelegy Ellipta) albuterol sulfate 90 mcg/actuation 2 puff inhalation Q6H PRN 05/04/24 03/17/25 aerosol inhaler Shortness Of Breath Or Wheezing candesartan 4 mg tablet 2 mg PO QAM 05/04/24 03/17/25 levothyroxine 125 mcg tablet 125 mcg PO DAILYBB 05/04/24 03/17/25 magnesium oxide 400 mg PO QAM 05/04/24 03/17/25 metoprolol succinate 25 mg 25 mg PO QAM 05/04/24 03/17/25 tablet,extended release 24 hr pramipexole 0.5 mg tablet 0.5 mg PO HS 05/04/24 03/17/25 vit C 250 mg-vit E 90 mg-zinc 40 1 tab PO AMHS 05/04/24 03/17/25 mg-copper 1 lr-hvteri-kzixkj capsule (PreserVision AREDS-2) cholestyramine 4 gram oral powder 4 g PO BID 01/16/25 03/17/25 (Prevalite) clonazepam 0.5 mg tablet 0.5 mg PO DAILY 01/16/25 03/17/25 ferrous sulfate 324 mg (65 mg 324 mg PO DAILY 01/16/25 03/17/25 iron) tablet,delayed release loperamide 2 mg capsule 2 mg PO Q6H PRN Diarrhea 01/16/25 03/17/25 qepcdhou-yvr-yanmr acid 0.4 1 tab PO DAILY 01/16/25 03/17/25 mg-lycopene 300 mcg-lutein 250 mcg tablet (Centrum Silver) simethicone 80 mg chewable tablet 80 mg PO DAILY 01/16/25 03/17/25 (Gas Relief 80 (simethicone)) umeclidinium 62.5 mcg-vilanterol 1 inh inhalation DAILY PRN 01/16/25 03/17/25 25 mcg/actuation powdr for NEEDED PER PT inhalation (Anoro Ellipta) bumetanide 2 mg tablet See Rx Instructions .Route .COMPLEX 03/17/25 03/17/25 Results & Data (ED) Vital Signs Vital Signs - 24 hr 03/16/25 21:22 03/16/25 23:38 03/16/25 23:39 Temperature 36.9 C Temperature Source Oral Pulse Rate 63 63 62 Pulse Rate from SpO2 Sensor Respiratory Rate 20 23 Respiratory Effort / Characteristics Non-Labored Spontaneous Respiratory Depth Normal Respiratory Pattern Regular Blood Pressure 129/76 123/50 L Blood Pressure Mean 93 74 Blood Pressure Position Sitting Pulse Oximetry 93 96 Oxygen Delivery Method Room Air Sepsis Recent Fever Within 48 Hours No Sepsis New/Unexplained Change in Mental Status N/A Sepsis Action Taken by Nursing No Action Required 03/16/25 23:57 03/17/25 00:24 Temperature Temperature Source Pulse Rate 61 60 Pulse Rate from SpO2 Sensor 61 60 Respiratory Rate 14 20 Respiratory Effort / Characteristics Respiratory Depth Respiratory Pattern Blood Pressure 108/64 114/53 L Blood Pressure Mean 78 73 Blood Pressure Position Pulse Oximetry 94 93 Oxygen Delivery Method Sepsis Recent Fever Within 48 Hours Sepsis New/Unexplained Change in Mental Status Sepsis Action Taken by Nursing Laboratory Data 03/16/25 22:21 03/17/25 13:52 Lab Results 03/16/25 03/16/25 03/16/25 Range/Units 01:14 22:11 22:21 WBC 9.45 (4.8-10.8) K/ul RBC 3.88 L (4.20-5.40) M/uL Hgb 11.7 L (12.0-16.0) g/dl Hct 37.9 (37.0-47.0) % MCV 97.7 (80.0-100.0) fL MCH 30.2 (25.0-34.0) pg MCHC 30.9 L (32.0-36.0) g/dL RDW Std Deviation 49.2 H (36.4-46.3) fL RDW Coeff of Kamala 13.8 (11.5-14.5) % Plt Count 163 (130-400) K/uL MPV 10.8 (9.4-12.4) fL Immature Gran % (Auto) 0.5 % Neut % (Auto) 74.3 % Lymph % (Auto) 11.3 % Simpson % (Auto) 9.9 % Eos % (Auto) 3.3 % Baso % (Auto) 0.7 % Neut # (Auto) 7.01 H (1.40-6.50) K/uL Lymph # (Auto) 1.07 L (1.20-3.40) K/uL Simpson # (Auto) 0.94 H (0.11-0.59) K/uL Eos # (Auto) 0.31 (0.00-0.50) K/uL Baso # (Auto) 0.07 (0.00-0.20) K/uL Immature Gran # (Auto) 0.05 (0.01-0.20) K/uL Sodium 141 (136-145) mmol/L Potassium 4.9 (3.5-5.1) mmol/L Chloride 101 (98-107) mmol/L Carbon Dioxide 32 (21-32) mmol/L Anion Gap 8 (3-11) BUN 40 H (6-23) mg/dl Creatinine 2.51 H D (0.6-1.2) mg/dl Est Cr Clr Drug Dosing Not Reportable eGFR 18.88 BUN/Creatinine Ratio 15.9 (10-20) Glucose 118 H (70-99(Fasting)) mg/dl Estimat Average Glucose 126 mg/dl Hemoglobin A1c 6.0 H (4.5-5.6) % Calcium 8.9 (8.6-10.3) mg/dl Total Bilirubin 0.6 (0.2-1.0) mg/dl AST 30 (13-39) U/L ALT 26 (7-52) U/L Alkaline Phosphatase 81 (34-104) U/L Total Protein 6.5 (6.0-8.3) gm/dl Albumin 4.0 (3.4-5.0) gm/dl Globulin 2.5 (2.5-4.0) gm/dl Albumin/Globulin Ratio 1.6 (0.9-2) Urine Color Dark Yellow Urine Appearance Cloudy A (Clear) Urine pH 5.0 (4.5-7.5) Ur Specific [place] 1.018 (1.000-1.030) Urine Protein Trace H (Negative) Urine Glucose (UA) Negative (Negative) Urine Ketones Negative (Negative) Urine Blood 3+ H (Negative) Urine Nitrite Negative (Negative) Urine Bilirubin Negative (Negative) Urine Urobilinogen Negative (Negative) Ur Leukocyte Esterase Trace H (Negative) Urine WBC (Auto) 0-5 (0-5) /hpf Urine RBC (Auto) 6-10 H (0-2) /hpf U Hyaline Cast (Auto) 3-5 H (0-2) /lpf U Epithel Cells (Auto) 0-2 (0-2) /hpf Urine Bacteria (Auto) None Seen (None Seen) Hyaline Casts Present A (None Presnt) /lpf Urine Comment Administered Medications Acetaminophen (Acetaminophen 500 Mg Tab) 1,000 mg PO Q8 [facility] Stop: 04/16/25 06:20 Last Admin: 03/17/25 13:34 Dose: 1,000 mg Documented By: Admin: 03/17/25 09:20 Dose: Not Given Documented By: LORETO Amiodarone HCl (Amiodarone 200 Mg Tab) 200 mg PO DAILY [facility] Stop: 04/16/25 08:59 Last Admin: 03/17/25 09:14 Dose: 200 mg Documented By: WALT Apixaban (Apixaban 2.5 Mg Tab) 2.5 mg PO BID [facility] Stop: 04/16/25 08:59 Last Admin: 03/17/25 09:13 Dose: 2.5 mg Documented By: WALT Cholestyramine Resin (Cholestyramine Light 4 Gm Pkt) 4 gm PO BID@1000,2200 [facility] Stop: 04/16/25 09:59 Last Admin: 03/17/25 09:15 Dose: 4 gm Documented By: WALT Escitalopram Oxalate (Escitalopram Oxalate 20 Mg Tab) 20 mg PO QAM [facility] Stop: 04/16/25 08:59 Last Admin: 03/17/25 09:14 Dose: 20 mg Documented By: WALT Ferrous Sulfate (Ferrous Sulfate 325 Mg Tab) 325 mg PO DAILY [facility] Stop: 04/16/25 08:59 Last Admin: 03/17/25 09:13 Dose: 325 mg Documented By: WALT Fluticasone Furoate (Fluticasone Furoate 100mcg 14 Puffs/Inhaler) 1 puffs INH DAILY [facility] Stop: 04/16/25 08:59 Last Admin: 03/17/25 09:15 Dose: 1 puffs Documented By: WALT Hydromorphone HCl (Hydromorphone Inj 0.5 Mg/0.5 Ml Syr) 0.5 mg IV Q4H PRN PRN Reason: Severe Pain (Scale 7, 8, 9,10) Stop: 03/31/25 06:20 Last Admin: 03/17/25 11:15 Dose: 0.5 mg Documented By: LORETO Insulin Aspart (Insulin Aspart Per Unit Charge) 0 units SC ACHS [facility] Stop: 04/16/25 07:29 Last Admin: 03/17/25 12:25 Dose: Not Given Documented By: Admin: 03/17/25 09:08 Dose: Not Given Documented By: WALT Co-signed By: TRAMAINE Levothyroxine Sodium (Levothyroxine Sodium 125 Mcg Tablet) 125 mcg PO DAILYBB [facility] Stop: 04/16/25 06:29 Last Admin: 03/17/25 09:14 Dose: 125 mcg Documented By: WALT Losartan Potassium (Losartan Potassium 25 Mg Tab) 6.25 mg PO [facility] Stop: 04/16/25 08:59 Last Admin: 03/17/25 09:13 Dose: 6.25 mg Documented By: WALT Magnesium Oxide (Magnesium Oxide 400 Mg Tab) 400 mg PO [facility] Stop: 04/16/25 08:59 Last Admin: 03/17/25 09:14 Dose: 400 mg Documented By: WALT Metoprolol Succinate (Metoprolol Succ 25mg Ext Rel Tab) 25 mg PO [facility] Stop: 04/16/25 08:59 Last Admin: 03/17/25 09:13 Dose: 25 mg Documented By: WALT Tamsulosin HCl (Tamsulosin Hcl 0.4 Mg Cap) 0.4 mg PO [facility] Stop: 04/16/25 08:59 Last Admin: 03/17/25 09:13 Dose: 0.4 mg Documented By: WALT Umeclidinium/Vilanterol (Umeclidinium/Vilanterol 62.5/25mcg 7 Puffs/Inhaler) 1 puffs INH DAILY [facility] Stop: 04/16/25 08:59 Last Admin: 03/17/25 09:15 Dose: 1 puffs Documented By: WALT Discontinued Medications Hydromorphone HCl (Hydromorphone Inj 0.5 Mg/0.5 Ml Syr) 0.5 mg IV NOW STA Stop: 03/16/25 23:13 Last Admin: 03/16/25 23:38 Dose: 0.5 mg Documented By: SASKIA Sodium Chloride (Nss) 1,000 mls @ 999 mls/hr IV .Q1H1M ONE Stop: 03/17/25 00:12 Last Infusion: 03/17/25 02:37 Dose: Infused Documented By: Admin: 03/16/25 23:38 Dose: 999 mls/hr Documented By: SASKIA Lactated Ringer's (Lr) 1,000 mls @ 100 mls/hr IV .Q10H [facility] Stop: 03/20/25 06:20 Last Infusion: 03/17/25 10:26 Dose: Infused Documented By: Admin: 03/17/25 06:47 Dose: 100 mls/hr Documented By: RAJNI Ondansetron HCl (Ondansetron Inj 2 Mg/Ml 2 Ml Vial) 4 mg IV NOW STA Stop: 03/16/25 23:13 Last Admin: 03/16/25 23:38 Dose: 4 mg Documented By: SASKIA Discharge Plan Visit Data Chief Complaint: Flank Pain Stated Complaint: L Flank Pain ED Provider: Karin Gaona Discharge Problem: Hydronephrosis with renal and ureteral calculus obstruction Patient Disposition: Admitted As Inpatient Condition: Serious Discharge Instructions Interventions: ED Discharge Assessment Last Done: 03/17/25 06:00
--- NOTE | 2025-03-17 00:47 | History & Physical Report ---
Date of Service March 17, 2025 Assessment & Plan (1) Calculus of distal left ureter: (2) DM type 2 (diabetes mellitus, type 2): (3) Atrial fibrillation: (4) ORTEGA (obstructive sleep apnea): (5) Anxiety and depression: (6) Hyperlipidemia: (7) GERD (gastroesophageal reflux disease): (8) RLS (restless legs syndrome): (9) (HFpEF) heart failure with preserved ejection fraction: Plan Patient is an 79-year-old female with past medical history of A-fib on chronic Eliquis, type 2 diabetes, ORTEGA (on CPAP), anxiety with episodes of depression, hyperlipidemia, hypertension, GERD, restless leg syndrome, and hypothyroidism who was admitted for management of ureterolithiasis. Ureterolithiasis w/ hydronephrosis - No fevers; had nausea associated to pain - Admit to Med/Surg - IVF ordered - Flomax ordered - Pain control with tylenol manuel, dilaudid 0.25 mg for moderate pain, and dilaudid 0.5 mg for severe pain - Urology consulted EVANGELINA - Creatinine at time of admission was 2.51 (usually around 0.9-1) - Recently had Bumex dose increased - Possibly related to recent increase in bumex dose and current ureteral stone leading to hydronephrosis - Hold bumex for now and mIVF ordered - Monitor am labs A-fib - Continue home Metoprolol and Amiodarone - Continue home Eliquis DM-2 - Last hgb a1c from 05/2024 was 5.3% - Repeat ordered' - SSI ORTEGA - Uses CPAP at home but does not wish to have one ordered while admitted - Oxygen qhs Chronic conditions: HTN -- Continue home Candesartan HLD -- Continue home Crestor Hypothyroidism -- Continue home levothyroxine Anxiety w/ depression -- Continue home lexapro RLS -- Continue pramipexole Dispo: Med/Surg VTE ppx: Eliquis Code Status: DNR/DNI History of Present Illness Chief Complaint: Flank pain Primary Care Provider: Adams Mcallister MD Patient is an 79-year-old female with past medical history of A-fib on chronic Eliquis,, type 2 diabetes, ORTEGA (on CPAP), anxiety with episodes of depression, hyperlipidemia, hypertension, GERD, restless leg syndrome, and hypothyroidism who came to the emergency department due to left flank pain. Patient states that she has had episodes of kidney stones in the past and realized that she was experiencing the same thing this time given that she was feeling the same flank pain radiating down to her anterior abdomen and/for to her room as she had last time she was experiencing kidney stones. Was seen in the emergency department yesterday due to the symptoms, and after her pain was controlled she was discharged home with a prescription for oral analgesics. Patient was not able to use oral analgesics as she "had difficulty opening up" and had little pain control when trying Tylenol. For this reason, patient returned to the emergency department. At time of evaluation, patient was found to be awake and alert but slightly drowsy due to recently administered Dilaudid, nontoxic, in no acute distress. Denies fever chills, chest pain, shortness of breath, cough, syncope nausea/diarrhea, or any other symptoms. ED Course: given Dilaudid 0.5 mg and Zofran IV x1 Labs/Imaging: CBC, platelets of 161. CMP without significant electrolyte derangements, creatinine elevated at 2.51, bsg at 118. U/A with 3+ blood, leuk esterase and hyaline casts but no noted bacteria. CTAP from 03/15 showing 6 mm right lower calculus with mild left-sided hydronephrosis and 1.3 cm left renal pelvis calculus that could also be contributing to hydronephrosis. Medical History: [Reviewed] Medications: [Reviewed] Surgical History: [Reviewed] Family history: [Reviewed] Allergies: [Reviewed] Social History: [Reviewed] Code Status: DNR/DNI Allergies Allergy/AdvReac Type Severity Reaction Status Date / Time JOSE Inhibitors AdvReac Intermediate COUGH Verified 03/17/25 00:01 Home Medications Medication Instructions Recorded Confirmed Type escitalopram oxalate 20 mg tablet 20 mg PO QAM 02/15/19 03/17/25 History potassium citrate 10 mEq (1,080 20 meq PO BID 11/07/19 03/17/25 History mg) tablet,extended release coenzyme Q10 100 mg capsule 200 mg PO QAM 02/16/20 03/17/25 History multivitamin 1 tab PO QPM 02/16/20 03/17/25 History rosuvastatin 40 mg tablet (Crestor) 40 mg PO HS 03/08/20 03/17/25 History amiodarone 200 mg tablet 200 mg PO DAILY 08/25/22 03/17/25 History omeprazole 40 mg capsule,delayed 40 mg PO QPM 08/25/22 03/17/25 History release apixaban 5 mg tablet (Eliquis) 5 mg PO BID 11/07/22 03/17/25 History fluticasone fur. 100 mcg-umeclid 1 inh inhalation QAM 02/11/24 03/17/25 History 62.5 mcg-vilant 25 mcg inhalat.powder (Trelegy Ellipta) albuterol sulfate 90 mcg/actuation 2 puff inhalation Q6H PRN 05/04/24 03/17/25 History aerosol inhaler Shortness Of Breath Or Wheezing candesartan 4 mg tablet 2 mg PO QAM 05/04/24 03/17/25 History levothyroxine 125 mcg tablet 125 mcg PO DAILYBB 05/04/24 03/17/25 History magnesium oxide 400 mg PO QAM 05/04/24 03/17/25 History metoprolol succinate 25 mg 25 mg PO QAM 05/04/24 03/17/25 History tablet,extended release 24 hr pramipexole 0.5 mg tablet 0.5 mg PO HS 05/04/24 03/17/25 History vit C 250 mg-vit E 90 mg-zinc 40 1 tab PO AMHS 05/04/24 03/17/25 History mg-copper 1 oe-sdxnqa-jaekat capsule (PreserVision AREDS-2) cholestyramine 4 gram oral powder 4 g PO BID 01/16/25 03/17/25 History (Prevalite) clonazepam 0.5 mg tablet 0.5 mg PO DAILY 01/16/25 03/17/25 History ferrous sulfate 324 mg (65 mg 324 mg PO DAILY 01/16/25 03/17/25 History iron) tablet,delayed release loperamide 2 mg capsule 2 mg PO Q6H PRN Diarrhea 01/16/25 03/17/25 History acoikvaw-pra-clvbj acid 0.4 1 tab PO DAILY 01/16/25 03/17/25 History mg-lycopene 300 mcg-lutein 250 mcg tablet (Centrum Silver) simethicone 80 mg chewable tablet 80 mg PO DAILY 01/16/25 03/17/25 History (Gas Relief 80 (simethicone)) umeclidinium 62.5 mcg-vilanterol 1 inh inhalation DAILY PRN 01/16/25 03/17/25 History 25 mcg/actuation powdr for NEEDED PER PT inhalation (Anoro Ellipta) bumetanide 2 mg tablet See Rx Instructions .Route .COMPLEX 03/17/25 03/17/25 History Past Med/Surg History Problem List (Updated 03/17/25 @ 15:36 by Elzbieta White DO) Hydronephrosis with renal and ureteral calculus obstruction (Acute) Acute renal failure Calculus of distal left ureter (Acute) Anemia Diabetic ulcer of left great toe (Acute) Loss of protective sensation of skin of foot DM type 2 (diabetes mellitus, type 2) NIDDM - unable to tolerate the metformin, currently diet regulated and monitoring currently. Medical History (Updated 03/17/25 @ 15:36 by Elzbieta White DO) Pacemaker Hyperlipidemia Anxiety and depression ORTEGA (obstructive sleep apnea) Mild per records Atrial fibrillation newly dx, May 2022. following with Dr Bacon & Dr Jacob. Diabetic peripheral neuropathy associated with type 2 diabetes mellitus Nonobstructive atherosclerosis of coronary artery (HFpEF) heart failure with preserved ejection fraction Callus of toe Personal history of diabetic foot ulcer Pulmonary nodule Chronic cholecystitis Hypertension Diabetes mellitus Diabetic neuropathy Hiatal hernia GERD (gastroesophageal reflux disease) Stress incontinence RLS (restless legs syndrome) Renal cyst History of nephrolithiasis History of squamous cell carcinoma History of basal cell carcinoma Surgical History (Updated 03/17/25 @ 15:36 by Elzbieta White DO) Status cardiac pacemaker S/P hernia repair History of esophagogastroduodenoscopy (EGD) History of cholecystectomy 2020 History of non-cataract eye surgery History of cataract surgery History of tonsillectomy History of lithotripsy History of colonoscopy History of hysterectomy History of appendectomy Family History Father Cancer Hypertension Diabetes Other No family history of adverse response to anesthesia No significant family history Social History Smoking Status: Never smoker Second Hand Exposure: Yes (spouse used to smoke alot); Do You Dip or Chew Tobacco: No; Hx Alcohol Use: No Hx Substance Use: No Preferred Language: Hungarian Communication Ability: Effective Visual Impairment: Limited Hearing Ability: Normal Lens Coating Technician Required: No Beliefs That Will Affect Care: None marital status: / Current Living Situation: Shelter Current Living Situation Comment: [facility] current occupational status: retired 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 [employer] Worker How many Children do You have: 0 Feels Safe at Home: Yes Diet: diabetic and ideal protein during the past year weight has: remained stable Assistive Devices: Glasses and Walker Review of Systems Review of Systems: As per HPI Physical Exam Physical Exam: GENERAL: AAOx3, afebrile, NAD HEAD: at, nc CHEST: Symmetric chest with respirations CARDIO: RRR, no murmur appreciated PULMONARY: CTA b/l GI: soft, NT, ND, no significant CVA tenderness EXTREMITIES: swelling in b/l LE w/o calf tenderness Results & Data Results & Data Vital Signs (Past 12 Hours) Vital Signs Temp Pulse Resp BP Pulse Ox O2 Del Method 03/16/25 21:22 36.9 C 63 20 129/76 93 Room Air Supervising Physician Co-Signing Physician Notes Attending addendum: I have physically seen this patient, have supervised the medical residents activities, and agree with the H&P unless as otherwise noted. Assessment and Plan: The patient is an 79-year-old female with past medical history including A-fib on chronic Eliquis, diabetes mellitus type 2, ORTEGA on CPAP, anxiety with depression, hyperlipidemia, hypertension, GERD, restless leg syndrome, and hypothyroidism. She presents to the emergency department with left ureteral calculus with worsening pain since her visit at the ED the previous day. 6 mm left ureteral calculus with hydronephrosis- N.p.o. after midnight Follow urine culture and sensitivity Tamsulosin 0.4 mg p.o. daily Acetaminophen 650 mg by mouth every 6 hours Dilaudid 0.25 mg IV every 3 hours as needed for moderate pain Dilaudid 0.5 mg IV every 3 hours as needed for severe pain Status post 1 L normal saline bolus from the ED Ceftriaxone 2 g IV daily IV fluids as noted Consult urology Acute kidney injury- Creatinine 2.51with base 1.05 IV fluids as above Recheck laboratories in the a.m. Atrial fibrillation/HTN- Continue metoprolol, candesartan and amiodarone Hold Eliquis for possible procedure Diabetes mellitus- Most recent hemoglobin A1c on 05/2024 was 5.3 Placed on Accu-Cheks with NovoLog SSI Repeat hemoglobin A1c ORTEGA- Uses CPAP at home, but prefers to use oxygen at bedtime while in hospital Hyperlipidemia- Continue rosuvastatin Check a fasting lipid panel Hypothyroidism- Continue levothyroxine Anxiety with depression- Continue Lexapro Restless leg syndrome- Continue pramipexole Resident Activity Tracking Resident Involvement: Resident Care Provided Care Provided: Adult Hospital Medicine
[2025-03-17] MEDS ORDERED: POLYETHYLENE (MIRALAX) 17 GM PACK PO PRN (06:21)
[2025-03-17] MEDS ORDERED: ONDANSETRON INJ 2 MG/ML 2 ML VIAL IV PRN (06:21)
[2025-03-17] MEDS ORDERED: GLUCOSE 10 TAB/TUBE PO PRN (06:21)
[2025-03-17] MEDS ORDERED: DEXTROSE 50% 50 ML SYRINGE IV PRN (06:21)
[2025-03-17] MEDS ORDERED: CARBOHYDRATES FOR HYPOGLYCEMIA PO PRN (06:21)
[2025-03-17] MEDS ORDERED: GLUCOSE 40% GEL 15 GM TUBE PO PRN (06:21)
[2025-03-17] MEDS ORDERED: ALBUTEROL HFA 8 GM INHALER INH PRN (06:21)
[2025-03-17] MEDS ORDERED: GLUCAGON FOR INJ 1 MG VIAL SQ PRN (06:21)
[2025-03-17] MEDS: LACTATED RINGER'S 1,000 ML IV SCH ×3 (06:47→16:12)
[2025-03-17 08:06] LABS: Hemoglobin A1C 6.0 % (4.5-5.6)
[2025-03-17] MEDS ORDERED: NON-FORMULARY MEDICATION (Fluticasone-Umeclidin-Vilanter [Trelegy Ellipta] 100-62.5-25 mcg INH SCH (09:00)
--- NOTE | 2025-03-17 09:05 | Urology Consultation ---
Date of Consultation March 17, 2025 Assessment & Plan (1) Calculus of distal left ureter: (2) Acute renal failure: Plan 79-year-old female admitted for left flank pain. CT scan showed a 1.3 cm left renal pelvis stone as well as a 6 mm distal obstructing ureteral stone. She has been afebrile with stable vitals. Initial labs showed a white count of 6.5 and a creatinine 1.60. Repeat labs showed white count of 9.4 and a creatinine of 2.51. Urinalysis showed microscopic hematuria but otherwise was negative. Based on CT scan showing 2 obstructing stones and given their size and EVANGELINA, ideally would take her for cystoscopy and left ureteral stent today. That being said, she had a diet prior to me rounding on her and recently ate so she would not be n.p.o. until this afternoon. Given that this is not urgent, we will plan on left ureteral stent first thing tomorrow morning Consent obtained. Patient marked Ancef 2 OR Patient can have a diet now but please make n.p.o. after midnight. Remainder of care per primary team History of Present Illness Attending Physician: Norman Ospina MD History of Present Illness 79-year-old female admitted for left flank pain. CT scan showed a 1.3 cm left renal pelvis stone as well as a 6 mm distal obstructing ureteral stone. She has been afebrile with stable vitals. Initial labs showed a white count of 6.5 and a creatinine 1.60. Repeat labs showed white count of 9.4 and a creatinine of 2.51. Urinalysis showed microscopic hematuria but otherwise was negative. I had last seen patient in 2021 for nephrolithiasis and she admits that she had some other health issues and did not return for follow-up. She reports left flank pain. She had a banana less than 2 hours ago. Allergies Allergy/AdvReac Type Severity Reaction Status Date / Time JOSE Inhibitors AdvReac Intermediate COUGH Verified 03/17/25 00:01 Home Medications Medication Instructions Recorded Confirmed Type escitalopram oxalate 20 mg tablet 20 mg PO QAM 02/15/19 03/17/25 History potassium citrate 10 mEq (1,080 20 meq PO BID 11/07/19 03/17/25 History mg) tablet,extended release coenzyme Q10 100 mg capsule 200 mg PO QAM 02/16/20 03/17/25 History multivitamin 1 tab PO QPM 02/16/20 03/17/25 History rosuvastatin 40 mg tablet (Crestor) 40 mg PO HS 03/08/20 03/17/25 History amiodarone 200 mg tablet 200 mg PO DAILY 08/25/22 03/17/25 History omeprazole 40 mg capsule,delayed 40 mg PO QPM 08/25/22 03/17/25 History release apixaban 5 mg tablet (Eliquis) 5 mg PO BID 11/07/22 03/17/25 History fluticasone fur. 100 mcg-umeclid 1 inh inhalation QAM 02/11/24 03/17/25 History 62.5 mcg-vilant 25 mcg inhalat.powder (Trelegy Ellipta) albuterol sulfate 90 mcg/actuation 2 puff inhalation Q6H PRN 05/04/24 03/17/25 History aerosol inhaler Shortness Of Breath Or Wheezing candesartan 4 mg tablet 2 mg PO QAM 05/04/24 03/17/25 History levothyroxine 125 mcg tablet 125 mcg PO DAILYBB 05/04/24 03/17/25 History magnesium oxide 400 mg PO QAM 05/04/24 03/17/25 History metoprolol succinate 25 mg 25 mg PO QAM 05/04/24 03/17/25 History tablet,extended release 24 hr pramipexole 0.5 mg tablet 0.5 mg PO HS 05/04/24 03/17/25 History vit C 250 mg-vit E 90 mg-zinc 40 1 tab PO AMHS 05/04/24 03/17/25 History mg-copper 1 io-cpygsr-uuhgun capsule (PreserVision AREDS-2) cholestyramine 4 gram oral powder 4 g PO BID 01/16/25 03/17/25 History (Prevalite) clonazepam 0.5 mg tablet 0.5 mg PO DAILY 01/16/25 03/17/25 History ferrous sulfate 324 mg (65 mg 324 mg PO DAILY 01/16/25 03/17/25 History iron) tablet,delayed release loperamide 2 mg capsule 2 mg PO Q6H PRN Diarrhea 01/16/25 03/17/25 History gnxvtzbc-chh-yvauv acid 0.4 1 tab PO DAILY 01/16/25 03/17/25 History mg-lycopene 300 mcg-lutein 250 mcg tablet (Centrum Silver) simethicone 80 mg chewable tablet 80 mg PO DAILY 01/16/25 03/17/25 History (Gas Relief 80 (simethicone)) umeclidinium 62.5 mcg-vilanterol 1 inh inhalation DAILY PRN 01/16/25 03/17/25 History 25 mcg/actuation powdr for NEEDED PER PT inhalation (Anoro Ellipta) bumetanide 2 mg tablet See Rx Instructions .Route .COMPLEX 03/17/25 03/17/25 History Patient History Medical History (Updated 03/17/25 @ 09:01 by Norman Ospina MD) Callus of toe Personal history of diabetic foot ulcer Pulmonary nodule Chronic cholecystitis Hypertension Diabetes mellitus Diabetic neuropathy Pacemaker Hiatal hernia GERD (gastroesophageal reflux disease) Stress incontinence RLS (restless legs syndrome) Renal cyst History of nephrolithiasis History of squamous cell carcinoma History of basal cell carcinoma Surgical History S/P hernia repair History of esophagogastroduodenoscopy (EGD) History of cholecystectomy 2020 History of non-cataract eye surgery History of cataract surgery History of tonsillectomy History of lithotripsy History of colonoscopy History of hysterectomy History of appendectomy Family History Father Cancer Hypertension Diabetes Other No family history of adverse response to anesthesia No significant family history Social History Smoking Status: Never smoker Second Hand Exposure: Yes (spouse used to smoke alot); Do You Dip or Chew Tobacco: No; Hx Alcohol Use: No Hx Substance Use: No Preferred Language: Luxembourgish Communication Ability: Effective Visual Impairment: Limited Hearing Ability: Normal Undertaker Assistant Required: No Beliefs That Will Affect Care: None marital status: / Current Living Situation: Personal Care Facility Current Living Situation Comment: [facility] current occupational status: retired 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 How many Children do You have: 0 Feels Safe at Home: Yes Diet: diabetic and ideal protein during the past year weight has: remained stable Assistive Devices: Walker Physical Exam 2 Physical Exam: General: Alert and oriented, no acute distress HEENT: Normocephalic, mucous membranes moist Pulmonary: Nonlabored respirations Abdomen: Nondistended Extremities: Moves all 4 spontaneously Neuro: No gross deficits Skin: Warm, dry, no rashes noted Results & Data Vital Signs (Past 12 Hours) Vital Signs Temp Pulse Resp BP Pulse Ox O2 Del Method 03/17/25 06:00 60 20 104/55 L 96 03/17/25 04:20 60 03/17/25 04:00 60 20 113/67 95 03/17/25 03:30 60 18 118/95 95 03/17/25 02:51 60 20 106/62 95 03/17/25 02:33 60 20 109/55 L 93 03/17/25 02:03 60 20 101/56 L 95 03/17/25 01:42 60 20 108/63 95 03/17/25 01:00 72 20 100/54 L 97 03/17/25 00:24 60 20 114/53 L 93 03/16/25 23:57 61 14 108/64 94 03/16/25 23:39 62 23 123/50 L 96 03/16/25 23:38 63 03/16/25 21:22 36.9 C 63 20 129/76 93 Room Air PG Care Time/CCT Total # of Minutes Spent Total Time Spent with Patient: Total time spent is greater than 50% in coordination of care (as documented) at patient's floor/unit and/or counseling patient: Coding Level of Care Code 97051 INT INP/OBS CARE 2/55MIN Diagnoses Calculus of distal left ureter N20.1 Acute renal failure N17.9
[2025-03-17] MEDS: INSULIN ASPART PER UNIT CHARGE SC SCH (09:08)
[2025-03-17] MEDS: APIXABAN 2.5 MG TAB PO SCH (09:13)
[2025-03-17] MEDS: LOSARTAN POTASSIUM 25 MG TAB PO SCH (09:13)
[2025-03-17] MEDS: FERROUS SULFATE 325 MG TAB PO SCH (09:13)
[2025-03-17] MEDS: TAMSULOSIN HCL 0.4 MG CAP PO SCH (09:13)
[2025-03-17] MEDS: METOPROLOL SUCC 25MG EXT REL TAB PO SCH (09:13)
[2025-03-17] MEDS: MAGNESIUM OXIDE 400 MG TAB PO SCH (09:14)
[2025-03-17] MEDS: LEVOTHYROXINE SODIUM 125 MCG TABLET PO SCH (09:14)
[2025-03-17] MEDS: AMIODARONE 200 MG TAB PO SCH (09:14)
[2025-03-17] MEDS: ESCITALOPRAM OXALATE 20 MG TAB PO SCH (09:14)
[2025-03-17] MEDS: FLUTICASONE FUROATE 100MCG 14 PUFFS/INHALER INH SCH (09:15)
[2025-03-17] MEDS: UMECLIDINIUM/VILANTEROL 62.5/25MCG 7 PUFFS/INHALER INH SCH (09:15)
[2025-03-17] MEDS: CHOLESTYRAMINE LIGHT 4 GM PKT PO SCH (09:15)
[2025-03-17] MEDS: ACETAMINOPHEN 500 MG TAB PO SCH (09:20)
--- NOTE | 2025-03-17 11:12 | XRay Report ---
XR chest 2V PA/lateral CLINICAL HISTORY: HFpEF COMPARISON STUDY: 03/15/2025 FINDINGS: Stable pacemaker. Stable prominent cardiomegaly with mild pulmonary vascular congestion. St able mild stranding opacity at the left lung base. No new consolidation or pleural effusion seen. No pneumothorax. IMPRESSION: Stable exam. ACT 112: Negative or not required by law. Electronically signed by: Anthony Fernandez M.D. 03/17/2025 11:11 AM
[2025-03-17] MEDS: HYDROmorphone INJ 0.5 MG/0.5 ML SYR IV PRN (11:15)
--- NOTE | 2025-03-17 13:39 | Hospitalist Progress Note ---
Date of Service March 17, 2025 Assessment & Plan Admission and Anticipated Discharge Date Admission Date: March 17, 2025 Results & Data Results & Data Vital Signs (Past 12 Hours) Vital Signs Temp Pulse Pulse Resp BP BP Pulse Ox 03/17/25 09:50 03/17/25 09:50 36.4 C L 72 16 114/68 96 03/17/25 09:48 03/17/25 09:00 74 16 125/62 96 03/17/25 06:00 60 20 104/55 L 96 03/17/25 04:20 60 03/17/25 04:00 60 20 113/67 95 03/17/25 03:30 60 18 118/95 95 03/17/25 02:51 60 20 106/62 95 03/17/25 02:33 60 20 109/55 L 93 03/17/25 02:03 60 20 101/56 L 95 03/17/25 01:42 60 20 108/63 95 O2 Del Method O2 Flow Rate 03/17/25 09:50 Nasal Cannula, CPAP 2 03/17/25 09:50 Nasal Cannula 2 03/17/25 09:48 Nasal Cannula 2 03/17/25 09:00 Nasal Cannula 2 03/17/25 06:00 03/17/25 04:20 03/17/25 04:00 03/17/25 03:30 03/17/25 02:51 03/17/25 02:33 03/17/25 02:03 03/17/25 01:42
[2025-03-17 14:38] LABS: Anion Gap 7.0 (3-11); Blood Urea Nitrogen 40.0 mg/dl (6-23); Calcium 8.3 mg/dl (8.6-10.3); Carbon Dioxide 30.0 mmol/L (21-32); Chloride 104.0 mmol/L (98-107); Creatinine Clr Calc Pharmacy 23.2 ml/min; Glucose 117.0 mg/dl (70-99(Fasting)); Potassium 5.0 mmol/L (3.5-5.1); Sodium 141.0 mmol/L (136-145)
--- NOTE | 2025-03-17 15:41 | Anesthesiology Consultation ---
Date of Service March 17, 2025 Assessment & Plan (1) Hydronephrosis with renal and ureteral calculus obstruction: (2) Acute renal failure: (3) Calculus of distal left ureter: Chart Review Chart Review: Acceptable Risk for Surgery Consults Requested none ASA ASA3 Proposed Anesthesia Anesthesia Type: MAC Risk / Benefits Reviewed With: PT / POA / Parent / Guardian, Accepts Plan and Informed Consent Obtained History Surgery Operation Date: 03/18/25 07:00 Proposed Procedures p Cystoscopy - John Mims MD Height/Weight Height: 5 ft 4 in Weight: 90 kg Allergies Allergy/AdvReac Type Severity Reaction Status Date / Time JOSE Inhibitors AdvReac Intermediate COUGH Verified 03/17/25 00:01 Medications Home Medications Medication Instructions Recorded Confirmed Last Taken escitalopram oxalate 20 mg tablet 20 mg PO QAM 02/15/19 03/17/25 03/16/25 potassium citrate 10 mEq (1,080 20 meq PO BID 11/07/19 03/17/25 03/16/25 mg) tablet,extended release coenzyme Q10 100 mg capsule 200 mg PO QAM 02/16/20 03/17/25 03/16/25 multivitamin 1 tab PO QPM 02/16/20 03/17/25 03/16/25 rosuvastatin 40 mg tablet (Crestor) 40 mg PO HS 03/08/20 03/17/25 03/16/25 amiodarone 200 mg tablet 200 mg PO DAILY 08/25/22 03/17/25 03/16/25 omeprazole 40 mg capsule,delayed 40 mg PO QPM 08/25/22 03/17/25 03/16/25 release apixaban 5 mg tablet (Eliquis) 5 mg PO BID 11/07/22 03/17/25 03/16/25 fluticasone fur. 100 mcg-umeclid 1 inh inhalation QAM 02/11/24 03/17/25 03/16/25 62.5 mcg-vilant 25 mcg inhalat.powder (Trelegy Ellipta) albuterol sulfate 90 mcg/actuation 2 puff inhalation Q6H PRN 05/04/24 03/17/25 Unknown aerosol inhaler Shortness Of Breath Or Wheezing candesartan 4 mg tablet 2 mg PO QAM 05/04/24 03/17/25 Unknown levothyroxine 125 mcg tablet 125 mcg PO DAILYBB 05/04/24 03/17/25 03/16/25 magnesium oxide 400 mg PO QAM 05/04/24 03/17/25 03/16/25 metoprolol succinate 25 mg 25 mg PO QAM 05/04/24 03/17/25 03/16/25 tablet,extended release 24 hr pramipexole 0.5 mg tablet 0.5 mg PO HS 05/04/24 03/17/25 03/16/25 vit C 250 mg-vit E 90 mg-zinc 40 1 tab PO AMHS 05/04/24 03/17/25 03/16/25 mg-copper 1 [id number] capsule (PreserVision AREDS-2) cholestyramine 4 gram oral powder 4 g PO BID 01/16/25 03/17/25 03/16/25 (Prevalite) clonazepam 0.5 mg tablet 0.5 mg PO DAILY 01/16/25 03/17/25 03/16/25 ferrous sulfate 324 mg (65 mg 324 mg PO DAILY 01/16/25 03/17/25 03/16/25 iron) tablet,delayed release loperamide 2 mg capsule 2 mg PO Q6H PRN Diarrhea 01/16/25 03/17/25 Unknown [id number]-[id number]-payvn acid 0.4 1 tab PO DAILY 01/16/25 03/17/25 03/16/25 mg-lycopene 300 mcg-lutein 250 mcg tablet (Centrum Silver) simethicone 80 mg chewable tablet 80 mg PO DAILY 01/16/25 03/17/25 03/16/25 (Gas Relief 80 (simethicone)) umeclidinium 62.5 mcg-vilanterol 1 inh inhalation DAILY PRN 01/16/25 03/17/25 Unknown 25 mcg/actuation powdr for NEEDED PER PT inhalation (Anoro Ellipta) bumetanide 2 mg tablet See Rx Instructions .Route .COMPLEX 03/17/25 03/17/25 03/16/25 Active Medications Generic Name Dose Route Start Last Admin Trade Name Freq PRN Reason Stop Dose Admin Acetaminophen 1,000 mg 03/17/25 06:21 03/18/25 05:38 Acetaminophen 500 Mg Tab PO 04/16/25 06:20 1,000 mg Q8 LISA Administration Amiodarone HCl 200 mg 03/17/25 09:00 03/17/25 09:14 Amiodarone 200 Mg Tab PO 04/16/25 08:59 200 mg DAILY LISA Administration Apixaban 2.5 mg 03/17/25 09:00 03/17/25 21:16 Apixaban 2.5 Mg Tab PO 04/16/25 08:59 Not Given BID LISA Cholestyramine Resin 4 gm 03/17/25 10:00 03/17/25 21:18 Cholestyramine Light 4 Gm Pkt PO 04/16/25 09:59 4 gm BID@1000,2200 LISA Administration Escitalopram Oxalate 20 mg 03/17/25 09:00 03/17/25 09:14 Escitalopram Oxalate 20 Mg Tab PO 04/16/25 08:59 20 mg QAM LISA Administration Ferrous Sulfate 325 mg 03/17/25 09:00 03/17/25 09:13 Ferrous Sulfate 325 Mg Tab PO 04/16/25 08:59 325 mg DAILY LISA Administration Fluticasone Furoate 1 puffs 03/17/25 09:00 03/17/25 09:15 Fluticasone Furoate 100mcg 14 Puffs/Inhaler INH 04/16/25 08:59 1 puffs DAILY LISA Administration Hydromorphone HCl 0.25 mg 03/17/25 06:21 03/18/25 05:43 Hydromorphone Inj 0.5 Mg/0.5 Ml Syr IV 03/31/25 06:20 0.25 mg Q4H PRN Administration Moderate Pain (Scale 4, 5, 6) Hydromorphone HCl 0.5 mg 03/17/25 06:21 03/17/25 15:53 Hydromorphone Inj 0.5 Mg/0.5 Ml Syr IV 03/31/25 06:20 0.5 mg Q4H PRN Administration Severe Pain (Scale 7, 8, 9,10) Insulin Aspart 0 units 03/18/25 06:15 03/18/25 06:13 Insulin Aspart Per Unit Charge SC 04/17/25 06:14 Not Given Q6 LISA Levothyroxine Sodium 125 mcg 03/17/25 06:30 03/18/25 05:37 Levothyroxine Sodium 125 Mcg Tablet PO 04/16/25 06:29 125 mcg DAILYBB LISA Administration Losartan Potassium 6.25 mg 03/17/25 09:00 03/17/25 09:13 Losartan Potassium 25 Mg Tab PO 04/16/25 08:59 6.25 mg QAM LISA Administration Magnesium Oxide 400 mg 03/17/25 09:00 03/17/25 09:14 Magnesium Oxide 400 Mg Tab PO 04/16/25 08:59 400 mg QAM LISA Administration Metoprolol Succinate 25 mg 03/17/25 09:00 03/17/25 09:13 Metoprolol Succ 25mg Ext Rel Tab PO 04/16/25 08:59 25 mg QAM LISA Administration Pramipexole Dihydrochloride 0.5 mg 03/17/25 21:00 03/17/25 21:17 Pramipexole Dihydrochlo 0.5 Mg Tab PO 04/16/25 20:59 0.5 mg HS LISA Administration Rosuvastatin Calcium 40 mg 03/17/25 21:00 03/17/25 21:17 Rosuvastatin Calcium 20 Mg Tab PO 04/16/25 20:59 40 mg HS LISA Administration Tamsulosin HCl 0.4 mg 03/17/25 09:00 03/17/25 09:13 Tamsulosin Hcl 0.4 Mg Cap PO 04/16/25 08:59 0.4 mg QAM LISA Administration Umeclidinium/Vilanterol 1 puffs 03/17/25 09:00 03/17/25 09:15 Umeclidinium/Vilanterol 62.5/25mcg 7 Puffs/Inhaler INH 04/16/25 08:59 1 puffs DAILY LISA Administration NPO Date Last Intake of Fluids: 03/17/25 Time Last Intake of Fluids: 23:59 Date Last Intake of Solids: 03/17/25 Time Last Intake of Solids: 09:00 Past Medical History Medical History (Updated 03/17/25 @ 15:36 by Elzbieta White DO) Pacemaker Hyperlipidemia Anxiety and depression ORTEGA (obstructive sleep apnea) Mild per records Atrial fibrillation newly dx, May 2022. following with Dr Bacon & Dr Jacob. Diabetic peripheral neuropathy associated with type 2 diabetes mellitus Nonobstructive atherosclerosis of coronary artery (HFpEF) heart failure with preserved ejection fraction Callus of toe Personal history of diabetic foot ulcer Pulmonary nodule Chronic cholecystitis Hypertension Diabetes mellitus Diabetic neuropathy Hiatal hernia GERD (gastroesophageal reflux disease) Stress incontinence RLS (restless legs syndrome) Renal cyst History of nephrolithiasis History of squamous cell carcinoma History of basal cell carcinoma Exercise / Class Metabolic Activity III < 4 Walking/Shop/Light housework Past Family History Family History Father Cancer Hypertension Diabetes Other No family history of adverse response to anesthesia No significant family history Past Surgical History Surgical History (Updated 03/17/25 @ 15:36 by Elzbieta White DO) Status cardiac pacemaker S/P hernia repair History of esophagogastroduodenoscopy (EGD) History of cholecystectomy 2020 History of non-cataract eye surgery History of cataract surgery History of tonsillectomy History of lithotripsy History of colonoscopy History of hysterectomy History of appendectomy Past Anesthesia History No Hx of Anesthesia Complications and No Family Hx of Anesthesia Complications History of PONV No Hx of PONV and No Hx of Motion Sickness Social History Smoking Status: Never smoker Do You Dip or Chew Tobacco: No Hx Alcohol Use: No Hx Substance Use: No substance use type: does not use Physical Exam Vital Signs Last Vital Signs Temp 37.1 C 03/17/25 22:21 Pulse 60 03/17/25 22:21 Resp 16 03/17/25 22:21 BP 106/68 03/17/25 22:21 Pulse Ox 96 03/17/25 22:21 O2 Del Method Nasal Cannula 03/17/25 22:21 O2 Flow Rate 3 03/17/25 22:21 Constitutional + obese ENMT Mouth: no TMJ abnormality Thyromental Distance: > or= 3.5 Finger Breadths Mallampati Class: II Neck normal visual inspection and trachea midline; neck extension not limited Respiratory normal respiratory effort Auscultation: lungs clear to auscultation bilaterally Cardiovascular Rate/Rhythm: regular rate and regular rhythm Heart Sounds: no murmur Chest (Breasts) Chest: + pacemaker Musculoskeletal Spine: normal cervical ROM Extremities: full ROM of extremities Neurologic moves all extremities Psychiatric Orientation: alert and oriented x 3 Testing Laboratory Results 03/18/25 06:25 03/18/25 06:25 Hemoglobin A1c 6.0 % (4.5-5.6) H 03/16/25 01:14 Urine Color Dark Yellow 03/16/25 22:11 Urine Appearance Cloudy (Clear) A 03/16/25 22:11 Urine pH 5.0 (4.5-7.5) 03/16/25 22:11 Ur Specific Reading 1.018 (1.000-1.030) 03/16/25 22:11 Urine Protein Trace (Negative) H 03/16/25 22:11 Urine Glucose (UA) Negative (Negative) 03/16/25 22:11 Urine Ketones Negative (Negative) 03/16/25 22:11 Urine Nitrite Negative (Negative) 03/16/25 22:11 Ur Leukocyte Esterase Trace (Negative) H 03/16/25 22:11 Urine WBC (Auto) 0-5 /hpf (0-5) 03/16/25 22:11 Urine RBC (Auto) 6-10 /hpf (0-2) H 03/16/25 22:11 U Hyaline Cast (Auto) 3-5 /lpf (0-2) H 03/16/25 22:11 U Epithel Cells (Auto) 0-2 /hpf (0-2) 03/16/25 22:11 Urine Bacteria (Auto) None Seen (None Seen) 03/16/25 22:11 03/18/25 03/17/25 05:31 20:48 POC Glucose 98 106 H Electrocardiogram Date: 05/04/24 AV dual paced @62bpm qtc 483msec Chest X-Ray Date: 03/17/25 Stable pacemaker. Stable prominent cardiomegaly with mild pulmonary vascular congestion. Stable mild stranding opacity at the left lung base. No new consolidation or pleural effusion seen. No pneumothorax. Echocardiogram Date: 05/05/24 EF: 55-60% LV Function: normal RWMA: + none Other Findings: + LVH (mod concen) Valvular Disease: + MR (mild) severe LAD and mod RAD with mod pulm HTN, RVSP 51mmHg Cardiac Catheterization Date: 03/09/23 Findings: LAD -medium caliber, no significant disease. Distal vessel tapers and continues around apex. Medium D1 without disease. 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 Ostium of RCA/circumflex 30% stenosis (normal efflux, no waveform dampening with engagement). Anterior course with 30-40% diffuse proximal disease. Mid segment luminal regularities before takeoff of left posterior lateral branch. Small left PDA without significant disease. RCA -small, nondominant, no significant disease. Shares takeoff with anomalous circumflex Recommendations: No high risk for obstructive CAD to explain patient's dyspnea on exertion. Continued ASCVD risk factor modification and dyspnea work-up with Dr. Bacon
--- NOTE | 2025-03-17 17:18 | Hospitalist Progress Note ---
Date of Service March 17, 2025 Assessment & Plan (1) Calculus of distal left ureter: (2) DM type 2 (diabetes mellitus, type 2): (3) Atrial fibrillation: (4) ORTEGA (obstructive sleep apnea): (5) Anxiety and depression: (6) Hyperlipidemia: (7) GERD (gastroesophageal reflux disease): (8) RLS (restless legs syndrome): (9) (HFpEF) heart failure with preserved ejection fraction: Plan Patient is an 79-year-old female with past medical history of A-fib on chronic Eliquis, type 2 diabetes, ORTEGA (on CPAP), anxiety with episodes of depression, hyperlipidemia, hypertension, GERD, restless leg syndrome, and hypothyroidism who was admitted for management of ureterolithiasis. Ureterolithiasis w/ hydronephrosis - No fevers; had nausea associated to pain. - IVF hold and will continue if the patient doesn't show volume overload. - Continue Flomax. - Continue alnalgesics tylenol manuel, dilaudid 0.25 mg for moderate pain, and dilaudid 0.5 mg for severe pain - CT scan showed a 1.3 cm left renal pelvis stone as well as a 6 mm distal obstructing ureteral stone. - Urology planned for cystoscopy and left ureteral stent tomorrow as she was not NPO today, so keeping NPO overnight. Ancef given. EVANGELINA - Creatinine at time of admission was 2.51->2.1 ; BUN 40. - Recently had Bumex dose increased - Possibly related to recent increase in bumex dose and current ureteral stone leading to hydronephrosis - Hold bumex for now. - Monitor am labs Chronic diastolic congestive heart failure: -On 3L NC -echo EF 50s; no new areas of wall motion abnormality -continue metoprolol -Monitor daily weights and examination to see if volume overloaded and will manage fluid accordingly. A-fib - Continue home Metoprolol and Amiodarone - Continue home Eliquis DM-2 - Last hgb a1c from 05/2024 was 5.3% - Repeat ordered' - SSI ORTEGA - Uses CPAP at home but does not wish to have one ordered while admitted - Oxygen qhs Chronic conditions: HTN -- Continue home Candesartan HLD -- Continue home Crestor Hypothyroidism -- Continue home levothyroxine Anxiety w/ depression -- Continue home lexapro RLS -- Continue pramipexole Dispo: Med/Surg VTE ppx: Eliquis Code Status: DNR/DNI Admission and Anticipated Discharge Date Admission Date: March 17, 2025 Subjective Patient on NC on 3L. Patient reports left flank pain radiating to groin area with nausea, controlled on pain medications. Reports shortness of breath and loss of appetite. Patient passing urine well and has normal bowel movement. Review of Systems Review of Systems: As per HPI. Physical Exam Physical Exam: HEENT: Head - normocephalic and atraumatic. Pupils are equal, round, and reactive to light. Extraocular eye muscles are intact, and sclera are anicteric. Nose - moist nasal mucosa without discharge. Mouth - moist buccal mucosa. Oropharynx is nonerythematous and there is no tonsillar exudate or edema noted. Neck: Supple; no cervical lymphadenopathy Heart: Regular rate and rhythm. There is a normal S1 and S2 with no murmurs, clicks, or gallops appreciated. Lungs: Clear to auscultation bilaterally with no wheezes, rales, or rhonchi. Abdomen: Soft, completely nontender, nondistended, with good bowel sounds. There is no guarding, rigidity, or rebound noted. Extremities: No evidence of cyanosis, clubbing, or edema. There are easily palpable peripheral pulses. Skin: warm and dry with good turgor and no rashes. Back: Left CVA tenderness Results & Data Results & Data Vital Signs (Past 12 Hours) Vital Signs Temp Pulse Pulse Pulse Resp BP BP 03/17/25 15:28 37.1 C 65 16 103/61 03/17/25 09:50 03/17/25 09:50 36.4 C L 72 16 114/68 03/17/25 09:48 03/17/25 09:00 74 16 125/62 03/17/25 06:00 60 20 104/55 L Pulse Ox O2 Del Method O2 Flow Rate 03/17/25 15:28 91 Nasal Cannula 3 03/17/25 09:50 Nasal Cannula, CPAP 2 03/17/25 09:50 96 Nasal Cannula 2 03/17/25 09:48 Nasal Cannula 2 03/17/25 09:00 96 Nasal Cannula 2 03/17/25 06:00 96 Resident Activity Tracking Resident Involvement: Resident Care Provided Care Provided: Adult Hospital Medicine Resident Supervision Co-Signing Physician Notes Attending attestation Pt seen and examined in concert with Dr. Jorgensen. In agreement with the documented findings as noted in the resident documentation with any exceptions or additions as noted here. Resting in bed with flank pain well controlled with present pain medication regimen, tolerating POI with waxing and waning mild O2 with minimal SOB r eported. VS as noted. On examination, S1/S2 nl RRR no MCG. CTAB. Abd NT/ND BS+ve Right sided ureterolithiasis w/ hydronephrosis - urology consult - pain control as noted. Continue tamsulosin. Closely monitoring IV hydration w/ h/o HFpEF without significant sx at present. For OR tomorrow, NPO past MN EVANGELINA - trend Cr in AM. Holding bumetanide at present due to EVANGELINA. Careful hydration. HFpEF - O2 per protocol. Holding bumetanide. Monitor I/O/weight. Continue metoprolol Atrial fibrillation - continue amoidarone, metoprolol, apixaban DMII - glycemic consult - continue SSI ORTEGA - strongly encourage CPAP use in hospital. Patient declines.
[2025-03-17] MEDS: PRAMIPEXOLE DIHYDROCHLO 0.5 MG TAB PO SCH (21:17)
[2025-03-17] MEDS: ROSUVASTATIN CALCIUM 20 MG TAB PO SCH (21:17)
--- NOTE | 2025-03-17 22:38 | Billing Data ---
Date of Service March 17, 2025 Coding Level of Care Code 67088 INT INP/OBS CARE
[2025-03-18] MEDS ORDERED: Nursing to Pharmacy Communication SCH (05:30)
[2025-03-18] MEDS: HYDROmorphone INJ 0.5 MG/0.5 ML SYR IV PRN (05:43)
[2025-03-18] MEDS: INSULIN ASPART PER UNIT CHARGE SC SCH ×2 (06:13→17:10)
[2025-03-18 06:50] LABS: Hematocrit (blood only) 30.9 % (37.0-47.0); Hemoglobin 9.4 g/dl (12.0-16.0); Mean Corpuscular Hemoglobin 30.2 pg (25.0-34.0); Mean Corpuscular Volume 99.4 fL (80.0-100.0); Platelet Count 108 K/uL (130-400); RDW Standard Deviation 49.1 fL (36.4-46.3); Red Blood Count 3.11 M/uL (4.20-5.40); White Blood Count 5.80 K/ul (4.8-10.8)
--- NOTE | 2025-03-18 06:50 | Urology Progress Note ---
Date of Service March 18, 2025 Assessment & Plan (1) Acute renal failure: (2) Hydronephrosis with renal and ureteral calculus obstruction: Plan 79-year-old female admitted for left flank pain. CT scan showed a 1.3 cm left renal pelvis stone as well as a 6 mm distal obstructing ureteral stone. She has been afebrile with stable vitals. Initial labs showed a white count of 6.5 and a creatinine 1.60. Repeat labs showed white count of 9.4 and a creatinine of 2.51. Urinalysis showed microscopic hematuria but otherwise was negative. Plan to go to OR for cystoscopy left retrograde pyelogram left ureteral stent placement Ancef to OR Admission and Anticipated Discharge Date Admission Date: March 17, 2025 Subjective No acute issues overnight. Afebrile with stable vitals. Labs pending this morning plan to go to the OR for cystoscopy with left stent placement as she is now appropriately n.p.o. Physical Exam Physical Exam: General: Alert and oriented, no acute distress HEENT: Normocephalic, mucous membranes moist Pulmonary: Nonlabored respirations Abdomen: Nondistended Extremities: Moves all 4 spontaneously Neuro: No gross deficits Skin: Warm, dry, no rashes noted Results & Data Vital Signs (Past 12 Hours) Vital Signs Temp Pulse Resp BP Pulse Ox O2 Del Method O2 Flow Rate 03/17/25 22:21 37.1 C 60 16 106/68 96 Nasal Cannula 3 PG Care Time/CCT Total # of Minutes Spent Total Time Spent with Patient: Total time spent is greater than 50% in coordination of care (as documented) at patient's floor/unit and/or counseling patient: Coding Level of Care Code 10496 SUB INP/OBS CARE 2/35MIN Diagnoses Acute renal failure N17.9 Hydronephrosis with renal and ureteral calculus obstruction N13.2
[2025-03-18] MEDS ORDERED: PROPOFOL IV EMULSION 10 MG/ML 20 ML VIAL IV ONE (06:52)
[2025-03-18] MEDS ORDERED: ONDANSETRON INJ 2 MG/ML 2 ML VIAL ONE (06:52)
[2025-03-18] MEDS ORDERED: LIDOCAINE 2% 2 ML VIAL/AMP(20MG/ML) INFIL ONE (06:52)
[2025-03-18 07:10] LABS: Anion Gap 6.0 (3-11); Blood Urea Nitrogen 35.0 mg/dl (6-23); Calcium 8.2 mg/dl (8.6-10.3); Carbon Dioxide 30.0 mmol/L (21-32); Chloride 105.0 mmol/L (98-107); Creatinine Clr Calc Pharmacy 24.7 ml/min; Glucose 94.0 mg/dl (70-99(Fasting)); Potassium 4.5 mmol/L (3.5-5.1); Sodium 141.0 mmol/L (136-145)
[2025-03-18] MEDS ORDERED: MEPERIDINE HCL 25 MG/ML CARP/VIAL IV PRN (07:26)
[2025-03-18] MEDS ORDERED: HYDROmorphone INJ 1 MG/ML SYRINGE IV PRN (07:26)
[2025-03-18] MEDS ORDERED: ATROPINE SULFATE 0.1 MG/ML 10ML SYR IV PRN (07:26)
[2025-03-18] MEDS: DIATRIZOATE MEGLUMINE 30% 100ML VIAL INSTIL ONE (07:45)
--- NOTE | 2025-03-18 07:49 | Operative Report ---
PG Post Operative Report Pre & Post Diagnosis Operation Date: 03/18/25 07:00 Pre-Op Diagnosis: Acute renal failure Hydronephrosis with renal and ureteral calculus obstruction Post-Op Diagnosis: Acute renal failure Hydronephrosis with renal and ureteral calculus obstruction I identified the patient and participated in the time-out.: Yes Procedure Operation Date: 03/18/25 07:00 Actual Procedures p Cystoscopy, left retrograde pyelogram with radiograph interpretation, left Stent Insertion(Left) - John Mims MD Surgeon John Mims MD Jacket Preparer None Estimated Blood Loss 0 Findings See Below Moderate left hydronephrosis, significant obstruction noted after wire was placed as there was a large output of urine from the kidney. Stent in appropriate position. Specimens None Drains 6 Afghan by 24 cm left ureteral stent Anesthesia Type MAC Complications none Indications 79-year-old female with a distal left ureteral calculus as well as large left renal pelvis stone with EVANGELINA who presents for stent placement Description of Procedure After informed consent was obtained, the patient was transported operative suite. MAC anesthesia was induced. The patient was placed in dorsal lithotomy position prepped and draped in a sterile fashion. They received preoperative Ancef for antibiotic prophylaxis. An appropriate surgical timeout was performed. A 22 Afghan rigid scope was inserted per urethra into the bladder. Cavanaugh cystoscopy revealed no stones or lesions. I turned my attention the left ureteral orifice and intubated this with a 5 Afghan open-ended catheter. A left retrograde pyelogram was shot which showed moderate left hydronephrosis. A sensor wire was advanced into the kidney and confirmed fluoroscopically. A 6 Afghan by 24 cm left ureteral stent was deployed with a good proximal coil in the renal pelvis and a good distal coil noted in the bladder. These were confirmed fluoroscopically and under direct visualization, respectively. The bladder was emptied and the scope was removed. This concluded the end of the case. All counts were correct at the end of the case. I was present, scrubbed, and actively participated for the entirety of the procedure. I attest to the content of the Intraoperative Record and any orders documented therein. Any exceptions are noted below.
--- NOTE | 2025-03-18 08:05 | Fluoroscopy Report ---
FL retrograde includes kub CLINICAL HISTORY: LT SIDE STENT COMPARISON STUDY: None FLUOROSCOPY TIME: 7 seconds FLUOROSCOPY IMAGES: 2 EXPOSURE DOSE: 3 mGy FINDINGS: Fluoroscopy was provided for urologic procedure. IMPRESSION: Intraoperative fluoroscopy. ACT 112: Negative or not required by law. Electronically signed by: Anthony Fernandez M.D. 03/18/2025 8:04 AM
--- NOTE | 2025-03-18 08:30 | Anesthesiology Progress Note ---
Date of Service March 18, 2025 Anesthesia Post Procedure Vital Signs Vital Signs: Temp Pulse Pulse Resp BP BP Pulse Ox 03/18/25 08:25 36.9 C 60 18 120/61 97 03/18/25 08:15 60 16 114/53 L 93 03/18/25 08:05 60 22 113/47 L 95 03/18/25 07:56 36.1 C L 62 20 117/70 98 03/18/25 07:15 03/17/25 22:21 37.1 C 60 16 106/68 96 03/17/25 15:28 37.1 C 65 16 103/61 91 03/17/25 09:50 03/17/25 09:50 36.4 C L 72 16 114/68 96 03/17/25 09:48 O2 Del Method O2 Flow Rate 03/18/25 08:25 Nasal Cannula 2 03/18/25 08:15 Room Air 0 03/18/25 08:05 Oxymask 4 03/18/25 07:56 Oxymask 6 03/18/25 07:15 Nasal Cannula 3 03/17/25 22:21 Nasal Cannula 3 03/17/25 15:28 Nasal Cannula 3 03/17/25 09:50 Nasal Cannula, CPAP 2 03/17/25 09:50 Nasal Cannula 2 03/17/25 09:48 Nasal Cannula 2 Transfer of Care Handoff Completed per policy Notes Mental Status: alert / awake / arousable Patient Amnestic to Procedure: Yes Nausea / Vomiting: adequately controlled Pain: adequately controlled Airway Patency, RR, SpO2: stable & adequate BP & HR: stable & adequate Hydration State: stable & adequate Anesthetic Complications: no major complications apparent and Pt Satisfied with anesthetic care
--- NOTE | 2025-03-18 14:13 | Hospitalist Progress Note ---
Date of Service March 18, 2025 Assessment & Plan (1) Calculus of distal left ureter: (2) DM type 2 (diabetes mellitus, type 2): (3) Atrial fibrillation: (4) ORTEGA (obstructive sleep apnea): (5) Anxiety and depression: (6) Hyperlipidemia: (7) GERD (gastroesophageal reflux disease): (8) RLS (restless legs syndrome): (9) (HFpEF) heart failure with preserved ejection fraction: Plan Patient is an 79-year-old female with past medical history of A-fib on chronic Eliquis, type 2 diabetes, ORTEGA (on CPAP), anxiety with episodes of depression, hyperlipidemia, hypertension, GERD, restless leg syndrome, and hypothyroidism who was admitted for management of ureterolithiasis. Ureterolithiasis w/ hydronephrosis/ S/p stent placement: - No fevers; had nausea associated to pain. - IVF hold and will continue monitoring the BMP and fluid status and will consider gently giving fluid. - Continue Flomax. - Continue alnalgesics tylenol manuel, dilaudid 0.25 mg for moderate pain, and dilaudid 0.5 mg for severe pain - CT scan showed a 1.3 cm left renal pelvis stone as well as a 6 mm distal obstructing ureteral stone. - Urology operated for cystoscopy and left ureteral stent on 03/18. Ancef given. - Will monitor. EVANGELINA - Creatinine at time of admission was 2.51->1.97 ; BUN 35 - Recently had Bumex dose increased - Possibly related to recent increase in bumex dose and current ureteral stone leading to hydronephrosis - Hold bumex for now. - Monitor am labs #HFpEF: -On 3L NC -echo EF 50s; no new areas of wall motion abnormality -continue metoprolol -Monitor daily weights and examination to see if volume overloaded and will manage fluid accordingly. A-fib - Continue home Metoprolol and Amiodarone - Continue home Eliquis DM-2 - Last hgb a1c from 05/2024 was 5.3% - Repeat ordered' - SSI ORTEGA - Uses CPAP at home but does not wish to have one ordered while admitted - Oxygen qhs Chronic conditions: HTN -- Continue home Candesartan HLD -- Continue home Crestor Hypothyroidism -- Continue home levothyroxine Anxiety w/ depression -- Continue home lexapro RLS -- Continue pramipexole Dispo: Med/Surg VTE ppx: Eliquis Code Status: DNR/DNI Admission and Anticipated Discharge Date Admission Date: March 17, 2025 Supervising Physician Co-Signing Physician Notes Attending attestation Pt seen and examined in concert with Dr. Jorgensen. In agreement with the d ocumented findings as noted in the resident documentation with any exceptions or additions as noted here. Resting in bed with flank pain well controlled with present pain medication regimen following stent placement by urology this AM. Tolerating POI with waxing and waning mild O2 with minimal SOB reported. VS as noted. On examination, S1/S2 nl RRR no MCG. CTAB. Abd NT/ND BS+ve Right sided ureterolithiasis w/ hydronephrosis s/p stent placement - urology consult - pain control as noted. Continue tamsulosin. Closely monitoring IV hydration w/ h/o HFpEF without significant sx at present. EVANGELINA - improving with PO intake and now s/p stent placement. trend Cr in AM. Holding bumetanide at present due to EVANGELINA. Careful hydration. HFpEF - O2 per protocol. Holding bumetanide due to EVANGELINA. Monitor I/O/weight. Continue metoprolol Atrial fibrillation - continue amiodarone, metoprolol, apixaban DMII - glycemic consult - continue SSI ORTEGA - strongly encourage CPAP use in hospital. Patient declines. Else see resident documentation as noted. Subjective Patient just returned from the surgery when seen in the morning. She reported feeling wobbly and didn't talk much and went back to sleep. She is on 2L on NC. Was kept NPO overnight. Review of Systems Review of Systems: As per HPI. Physical Exam Physical Exam: HEENT: Head - normocephalic and atraumatic. Pupils are equal, round, and reactive to light. Extraocular eye muscles are intact, and sclera are anicteric. Nose - moist nasal mucosa without discharge. Mouth - moist buccal mucosa. Oropharynx is nonerythematous and there is no tonsillar exudate or edema noted. Neck: Supple; no cervical lymphadenopathy Heart: Regular rate and rhythm. There is a normal S1 and S2 with no murmurs, clicks, or gallops appreciated. Lungs: Clear to auscultation bilaterally with no wheezes, rales, or rhonchi. Abdomen: Soft, completely nontender, nondistended, with good bowel sounds. There is no guarding, rigidity, or rebound noted. Extremities: No evidence of cyanosis, clubbing, or edema. There are easily palpable peripheral pulses. Skin: warm and dry with good turgor and no rashes. Back: Left CVA tenderness Results & Data Results & Data Vital Signs (Past 12 Hours) Vital Signs Temp Pulse Resp BP Pulse Ox O2 Del Method O2 Flow Rate 03/18/25 08: 36.9 C 60 18 120/61 97 Nasal Cannula 2 03/18/25 08:15 60 16 114/53 L 93 Room Air 0 03/18/25 08:05 60 22 113/47 L 95 Oxymask 4 03/18/25 07:56 36.1 C L 62 20 117/70 98 Oxymask 6 03/18/25 07:15 Nasal Cannula 3 Resident Activity Tracking Resident Involvement: Resident Care Provided Care Provided: Adult Hospital Medicine
[2025-03-18] MEDS: Nursing to Pharmacy Communication SCH (14:44)
[2025-03-19 06:24] LABS: Hematocrit (blood only) 31.1 % (37.0-47.0); Hemoglobin 9.4 g/dl (12.0-16.0); Mean Corpuscular Hemoglobin 29.7 pg (25.0-34.0); Mean Corpuscular Volume 98.4 fL (80.0-100.0); Platelet Count 119 K/uL (130-400); RDW Standard Deviation 48.2 fL (36.4-46.3); Red Blood Count 3.16 M/uL (4.20-5.40); White Blood Count 5.74 K/ul (4.8-10.8)
[2025-03-19 06:36] LABS: Anion Gap 5.0 (3-11); Blood Urea Nitrogen 34.0 mg/dl (6-23); Calcium 8.4 mg/dl (8.6-10.3); Carbon Dioxide 28.0 mmol/L (21-32); Chloride 105.0 mmol/L (98-107); Creatinine Clr Calc Pharmacy 31.5 ml/min; Glucose 91.0 mg/dl (70-99(Fasting)); Potassium 4.5 mmol/L (3.5-5.1); Sodium 138.0 mmol/L (136-145)
--- NOTE | 2025-03-19 10:19 | Urology Progress Note ---
Date of Service March 19, 2025 Assessment & Plan (1) Calculus of distal left ureter: Plan: - Pt POD#1 s/p cystoscopy and left ureteral stent placement - Doing well, progressing as expected - Afebrile with stable vitals - Lab work reviewed - creatinine 1.55, WBC 5.74 - Tolerating left ureteral stent with minimal bother - Okay to d/c from perspective when medically stable - Recommend d/c with Tamsulosin, prn Pyridium and oxybutynin and prn analgesia for stent management - Expected clinical course reviewed, all questions answered - Will arrange outpatient follow-up with our service to set up definitive stone treatment - will sign off, please contact our service with any additional questions or concerns Admission and Anticipated Discharge Date Admission Date: March 17, 2025 Subjective Patient seen and examined at bedside this morning. She is awake and sitting up in bed. No left flank discomfort at present. Voiding spontaneously. No fever or chills. Review of Systems Constitutional: as per Subjective / HPI Genitourinary: as per Subjective / HPI Physical Exam Constitutional: well developed and well nourished; no acute distress Respiratory: no respiratory distress and no labored breathing Supplemental oxygen Gastrointestinal (Abdomen): Inspection/Auscultation: abdomen normal to inspection Musculoskeletal: Head/Neck/Chest: normocephalic Neurologic: moves all extremities and awake Psychiatric: Orientation: alert and oriented x 3 Results & Data Vital Signs (Past 12 Hours) Vital Signs Temp Pulse Resp BP Pulse Ox O2 Del Method O2 Flow Rate 03/19/25 07:51 36.7 C 62 16 116/57 L 98 Nasal Cannula 3 03/19/25 04:06 36.9 C 59 L 18 104/64 99 Nasal Cannula 4 03/18/25 23:40 37.0 C 63 18 121/67 98 Nasal Cannula 4 03/18/25 23:37 Nasal Cannula 4 PG Care Time/CCT Total # of Minutes Spent Total Time Spent with Patient: Total time spent is greater than 50% in coordination of care (as documented) at patient's floor/unit and/or counseling patient: Coding Level of Care Code 57515 SUB INP/OBS CARE 06/10MIN Diagnoses Calculus of distal left ureter N20.1
--- NOTE | 2025-03-19 11:34 | Hospitalist Progress Note ---
Date of Service March 19, 2025 Assessment & Plan (1) Calculus of distal left ureter: (2) DM type 2 (diabetes mellitus, type 2): (3) Atrial fibrillation: (4) ORTEGA (obstructive sleep apnea): (5) Anxiety and depression: (6) Hyperlipidemia: (7) GERD (gastroesophageal reflux disease): (8) RLS (restless legs syndrome): (9) (HFpEF) heart failure with preserved ejection fraction: (10) Acute renal failure: Plan Patient is an 79-year-old female with past medical history of A-fib on chronic Eliquis, type 2 diabetes, ORTEGA (on CPAP), anxiety with episodes of depression, hyperlipidemia, hypertension, GERD, restless leg syndrome, and hypothyroidism who was admitted for management of ureterolithiasis. Ureterolithiasis w/ hydronephrosis/ S/p stent placement, POD 1: - No fevers; had nausea associated to pain. - IVF hold and will continue monitoring the BMP and fluid status and will consider gently giving fluid. - Continue Flomax. - Continue alnalgesics tylenol manuel, dilaudid 0.25 mg for moderate pain, and dilaudid 0.5 mg for severe pain - CT scan showed a 1.3 cm left renal pelvis stone as well as a 6 mm distal obstructing ureteral stone. - Urology operated for cystoscopy and left ureteral stent on 03/18. - Urology recommend home dc with pyridium and continue tamsulosin. EVANGELINA - Creatinine at time of admission was 2.51->1.55 ; BUN 34 - Recently had Bumex dose increased - Possibly related to recent increase in bumex dose and current ureteral stone leading to hydronephrosis - Hold bumex for now. - Monitor am labs - Will lower the bumex dose for home, 2mg daily. #HFpEF: -On 3L NC -echo EF 50s; no new areas of wall motion abnormality -continue metoprolol -Monitor daily weights and examination to see if volume overloaded and will manage fluid accordingly. -Continue to wean off the oxygen today and possible dc home tomorrow. A-fib - Continue home Metoprolol and Amiodarone - Continue home Eliquis DM-2 - Last hgb a1c from 05/2024 was 5.3% - Repeat ordered' - SSI ORTEGA - Uses CPAP at home but does not wish to have one ordered while admitted - Oxygen qhs Chronic conditions: HTN -- Continue home Candesartan HLD -- Continue home Crestor Hypothyroidism -- Continue home levothyroxine Anxiety w/ depression -- Continue home lexapro RLS -- Continue pramipexole Dispo: Med/Surg VTE ppx: Eliquis Code Status: DNR/DNI Admission and Anticipated Discharge Date Admission Date: March 17, 2025 Supervising Physician Co-Signing Physician Notes I personally examined the patient and verified all aguilar points of history and exam, discussed case, and agree with decision making with Dr Jorgensen feeling better overall and would like to go home. Not chronically on oxygen. Nursing tried to wean oxygenbut patient was still dipping into the mid 80s on room air. Vitals noted, in general she is awake and alert pleasant no distress. HEENT normocephalic atraumatic mucous membranes moist. Lungs are overall clear but diminished bibasilar no rales rhonchi or wheezes. Skin without rashes pallor or icterus. Right sided ureterolithiasis w/ hydronephrosis s/p stent placement - urology consult - pain control as noted. Continue tamsulosin. Stable for discharge from the standpoint EVANGELINA - suspect more from diuretic related to HFpEF then from ureteral obstruction given that was unilateral. Improving. Continue to follow fluid balance. Hold on diuretic for now. HFpEF - Acute hypoxia appears to be related to thisimproving but cannot quite weangiven that her EVANGELINA was largely diuretic related, hold off on additional diuresis at this time, likely will be able to slowly wean oxygen over time. Diurese more only if oxygen requirement goes up; otherwise would like to allow kidneys to recover fully. Atrial fibrillation - continue amiodarone, metoprolol, apixaban; Rate controlled/anticoagulated DMII - glycemic consult - continue SSI ORTEGA - strongly encourage CPAP use in hospital. Patient declines. Else see resident documentation as noted. Subjective Patient seen and examined at bedside this morning. She is awake and sitting up in bed. No left flank discomfort at present. Voiding spontaneously. No fever or chills. Review of Systems Review of Systems: As per HPI. Physical Exam Physical Exam: HEENT: Head - normocephalic and atraumatic. Pupils are equal, round, and reactive to light. Extraocular eye muscles are intact, and sclera are anicteric. Nose - moist nasal mucosa without discharge. Mouth - moist buccal mucosa. Oropharynx is nonerythematous and there is no tonsillar exudate or edema noted. Neck: Supple; no cervical lymphadenopathy Heart: Regular rate and rhythm. There is a normal S1 and S2 with no murmurs, clicks, or gallops appreciated. Lungs: Clear to auscultation bilaterally with no wheezes, rales, or rhonchi. Abdomen: Soft, completely nontender, nondistended, with good bowel sounds. There is no guarding, rigidity, or rebound noted. Extremities: No evidence of cyanosis, clubbing, or edema. There are easily palpable peripheral pulses. Skin: warm and dry with good turgor and no rashes. Back: Left CVA tenderness Results & Data Results & Data Vital Signs (Past 12 Hours) Vital Signs Temp Pulse Resp BP Pulse Ox O2 Del Method O2 Flow Rate 03/19/25 08:27 Nasal Cannula 3 03/19/25 07:51 36.7 C 62 16 116/57 L 98 Nasal Cannula 3 03/19/25 04:06 36.9 C 59 L 18 104/64 99 Nasal Cannula 4 03/18/25 23:40 37.0 C 63 18 121/67 98 Nasal Cannula 4 03/18/25 23:37 Nasal Cannula 4 Resident Activity Tracking Resident Involvement: Resident Care Provided Care Provided: Adult Hospital Medicine
--- NOTE | 2025-03-19 16:07 | XRay Report ---
XR chest 2V PA/lateral CLINICAL HISTORY: HFpEF COMPARISON STUDY: 03/17/2025 FINDINGS: Stable pacemaker. Stable cardiomegaly with mild pulmonary vascular congestion. No consolida tion or pleural effusion seen. No pneumothorax. IMPRESSION: Stable CHF. ACT 112: Negative or not required by law. Electronically signed by: Anthony Fernandez M.D. 03/19/2025 4:05 PM
--- NOTE | 2025-03-19 17:20 | Billing Data ---
Date of Service March 19, 2025 Coding Level of Care Code 56931 SUB INP/OBS CARE
--- NOTE | 2025-03-19 17:21 | Billing Data ---
Date of Service March 19, 2025 Coding Level of Care Code 55044 SUB INP/OBS CARE
[2025-03-19] MEDS: MELATONIN 3 MG TAB PO PRN (19:55)
[2025-03-20 06:38] LABS: Hematocrit (blood only) 31.0 % (37.0-47.0); Hemoglobin 9.9 g/dl (12.0-16.0); Mean Corpuscular Hemoglobin 31.4 pg (25.0-34.0); Mean Corpuscular Volume 98.4 fL (80.0-100.0); Platelet Count 130 K/uL (130-400); RDW Standard Deviation 47.8 fL (36.4-46.3); Red Blood Count 3.15 M/uL (4.20-5.40); White Blood Count 4.95 K/ul (4.8-10.8)
[2025-03-20 07:09] LABS: Anion Gap 6.0 (3-11); Blood Urea Nitrogen 27.0 mg/dl (6-23); Calcium 8.7 mg/dl (8.6-10.3); Carbon Dioxide 30.0 mmol/L (21-32); Chloride 107.0 mmol/L (98-107); Creatinine Clr Calc Pharmacy 44.2 ml/min; Glucose 87.0 mg/dl (70-99(Fasting)); Potassium 4.6 mmol/L (3.5-5.1); Sodium 143.0 mmol/L (136-145)
[2025-03-20 07:35] VITALS: BP 121/65; TEMP 97.3
[2025-03-20 10:39] VITALS: O2SAT 94
[2025-03-20 11:11] VITALS: PULSE 72; RESP 14
--- NOTE | 2025-03-20 13:01 | Discharge Summary ---
Date of Service March 20, 2025 Admission HPI Per Admitting Provider Patient is an 79-year-old female with past medical history of A-fib on chronic Eliquis,, type 2 diabetes, ORTEGA (on CPAP), anxiety with episodes of depression, hyperlipidemia, hypertension, GERD, restless leg syndrome, and hypothyroidism who came to the emergency department due to left flank pain. Patient states that she has had episodes of kidney stones in the past and realized that she was experiencing the same thing this time given that she was feeling the same flank pain radiating down to her anterior abdomen and/for to her room as she had last time she was experiencing kidney stones. Was seen in the emergency department yesterday due to the symptoms, and after her pain was controlled she was discharged home with a prescription for oral analgesics. Patient was not able to use oral analgesics as she "had difficulty opening up" and had little pain control when trying Tylenol. For this reason, patient returned to the emergency department. At time of evaluation, patient was found to be awake and alert but slightly drowsy due to recently administered Dilaudid, nontoxic, in no acute distress. Denies fever chills, chest pain, shortness of breath, cough, syncope nausea/diarrhea, or any other symptoms. ED Course: given Dilaudid 0.5 mg and Zofran IV x1 Labs/Imaging: CBC, platelets of 161. CMP without significant electrolyte derangements, creatinine elevated at 2.51, bsg at 118. U/A with 3+ blood, leuk esterase and hyaline casts but no noted bacteria. CTAP from 03/15 showing 6 mm right lower calculus with mild left-sided hydronephrosis and 1.3 cm left renal pelvis calculus that could also be contributing to hydronephrosis. Medical History: [Reviewed] Medications: [Reviewed] Surgical History: [Reviewed] Family history: [Reviewed] Allergies: [Reviewed] Social History: [Reviewed] Code Status: DNR/DNI Admission Exam Per Admitting Provider GENERAL: AAOx3, afebrile, NAD HEAD: at, nc CHEST: Symmetric chest with respirations CARDIO: RRR, no murmur appreciated PULMONARY: CTA b/l GI: soft, NT, ND, no significant CVA tenderness EXTREMITIES: swelling in b/l LE w/o calf tenderness Principal Diagnosis Ureterolithiasis with hydronephrosis S/p stent placement Discharge Exam HEENT: Head - normocephalic and atraumatic. Pupils are equal, round, and reactive to light. Extraocular eye muscles are intact, and sclera are anicteric. Nose - moist nasal mucosa without discharge. Mouth - moist buccal mucosa. Oropharynx is nonerythematous and there is no tonsillar exudate or edema noted. Neck: Supple; no cervical lymphadenopathy Heart: Regular rate and rhythm. There is a normal S1 and S2 with no murmurs, clicks, or gallops appreciated. Lungs: Clear to auscultation bilaterally with no wheezes, rales, or rhonchi. Abdomen: Soft, completely nontender, nondistended, with good bowel sounds. There is no guarding, rigidity, or rebound noted. Extremities: No evidence of cyanosis, clubbing, or edema. There are easily palpable peripheral pulses. Skin: warm and dry with good turgor and no rashes. Back: Left CVA tenderness Discharge Data Allergies Allergy/AdvReac Type Severity Reaction Status Date / Time JOSE Inhibitors AdvReac Intermediate COUGH Verified 03/17/25 00:01 Consultations 03/16/25 23:53 ED Decision to Admit Stat 03/17/25 00:29 Consult Urology Routine Procedures Performed Operation Date: 03/18/25 07:00 Actual Procedures p Cystoscopy, Left Stent Insertion(Left) - John Mims MD Ordered Studies 03/18/25 07:00 FL retrograde includes kub Routine Hospital Course (1) Calculus of distal left ureter: (2) DM type 2 (diabetes mellitus, type 2): (3) Atrial fibrillation: (4) ORTEGA (obstructive sleep apnea): (5) Anxiety and depression: (6) Hyperlipidemia: (7) GERD (gastroesophageal reflux disease): (8) RLS (restless legs syndrome): (9) (HFpEF) heart failure with preserved ejection fraction: (10) Acute renal failure: Plan Patient is an 79-year-old female with past medical history of A-fib on chronic Eliquis, type 2 diabetes, ORTEGA (on CPAP), anxiety with episodes of depression, hyperlipidemia, hypertension, GERD, restless leg syndrome, and hypothyroidism who was admitted for management of ureterolithiasis. Ureterolithiasis w/ hydronephrosis/ S/p stent placement, POD 1: - No fevers; had nausea associated to pain. - IVF hold and will continue monitoring the BMP and fluid status and will consider gently giving fluid. - Continue Flomax. - Continue alnalgesics tylenol manuel, dilaudid 0.25 mg for moderate pain, and dilaudid 0.5 mg for severe pain - CT scan showed a 1.3 cm left renal pelvis stone as well as a 6 mm distal obstructing ureteral stone. - Urology operated for cystoscopy and left ureteral stent on 03/18. - Urology recommend home dc with pyridium and continue tamsulosin. EVANGELINA - Creatinine at time of admission was 2.51->1.55 ; BUN 34 - Recently had Bumex dose increased - Possibly related to recent increase in bumex dose and current ureteral stone leading to hydronephrosis - Hold bumex for now. - Monitor am labs - Will lower the bumex dose for home, 2mg daily. #HFpEF: -On 3L NC -echo EF 50s; no new areas of wall motion abnormality -continue metoprolol -Monitor daily weights and examination to see if volume overloaded and will manage fluid accordingly. -Continue to wean off the oxygen today and possible dc home tomorrow. A-fib - Continue home Metoprolol and Amiodarone - Continue home Eliquis DM-2 - Last hgb a1c from 05/2024 was 5.3% - Repeat ordered' - SSI ORTEGA - Uses CPAP at home but does not wish to have one ordered while admitted - Oxygen qhs Chronic conditions: HTN -- Continue home Candesartan HLD -- Continue home Crestor Hypothyroidism -- Continue home levothyroxine Anxiety w/ depression -- Continue home lexapro RLS -- Continue pramipexole Dispo: Med/Surg VTE ppx: Eliquis Code Status: DNR/DNI Total Time Total Time Spent Total Time Spent (In Minutes): <30 Discharge Plan Discharge Items Patient Disposition: Home - Self-Care Reason For Visit: FLANK PAIN Discharge Diagnosis: Left nephrolithiasis and ureterolithiasis with EVANGELINA Condition on Discharge: Serious Activity: Per Instructions section Non-emergency contact: Primary Care Provider and Urologist Call non-emergency contact if: your pain is not controlled and your temperature is above 101 Follow-up/Referrals: Adams Mcallister MD [Primary Care Provider] - Diet: Regular Ambulatory Orders: Basic Metabolic Panel (Routine) Timeframe: 1 Day Location: Determined by Patient Ordered By: Kate Lanier Attending Provider Instructions: You were admitted to [facility] because of left flank pain and dehydration on arrival. With regard to your left flank pain, We had a CT scan of your abdomen which showed stone in your ureter and your kidney which caused blockage and build up of urine on your kidney, called "Hydronephrosis". Your blood work also showed signs of dehydration for which we treated you with some fluids carefully watching if you are fluid overloaded or not because of your history of being volume overloaded. Urologist underwent surgery with a stent to help you to pass stone and we kept watching your kidney function.As you were needing oxygen we kept you in the hospital with nasal cannula monitoring your volume status. You will continue your home medications as noted below. I have mentioned the medications we changed from the hospital: Medication Changes 1) we have changed your home dosing of "Bumetanide" to 2mg once daily. (a new script has been sent for this medication) 2) we have also prescribed a new medication "Torsemide" once daily. (a new script has been sent for this medication) 3) We have prescribed a new medication "Pyridium" as needed.(a new script has been sent for this medication) Please make sure you follow up with your PCP and kidney doctor "Urologist" within 1-2 weeks to make sure your kidney function continues to be stable. Thank you for choosing [facility] as your healthcare provider Pending Studies at Discharge: No Stand-Alone Forms: [facility], Smoking Cessation Medications and DC Order Prescriptions: New tamsulosin 0.4 mg capsule 0.4 mg PO DAILY Qty: 30 0RF phenazopyridine [Pyridium] 100 mg tablet 100 mg PO Q8H PRN (Reason: pain) Qty: 20 0RF acetaminophen 500 mg capsule 500 mg PO Q6H PRN (Reason: pain) Qty: 30 0RF bumetanide 2 mg tablet 2 mg PO DAILY Qty: 30 0RF Continued Trelegy Ellipta 100-62.5-25 mcg blister with device 1 inh inhalation QAM escitalopram oxalate 20 mg tablet 20 mg PO QAM potassium citrate 10 mEq (1,080 mg) tablet extended release 20 meq PO BID Hold Instructions: Resume on 05/07/24. coenzyme Q10 100 mg capsule 200 mg PO QAM multivitamin Tablet 1 tab PO QPM umeclidinium-vilanterol [Anoro Ellipta] 62.5-25 mcg/actuation blister with device 1 inh inhalation DAILY PRN (Reason: NEEDED PER PT) Centrum Silver 0.4 mg-300 mcg- 250 mcg tablet 1 tab PO DAILY clonazepam 0.5 mg tablet 0.5 mg PO DAILY ferrous sulfate 324 mg (65 mg iron) tablet,delayed release (DR/EC) 324 mg PO DAILY loperamide 2 mg capsule 2 mg PO Q6H PRN (Reason: Diarrhea) simethicone [Gas Relief 80 (simethicone)] 80 mg tablet,chewable 80 mg PO DAILY Prevalite 4 gram powder 4 g PO BID Rx Instructions: administer w/meal; avoid other meds within 1hr before or 4-6hr after dose rosuvastatin [Crestor] 40 mg Tablet 40 mg PO HS omeprazole 40 mg Capsule,Delayed Release(Dr/Ec) 40 mg PO QPM amiodarone 200 mg Tablet 200 mg PO DAILY Eliquis 5 mg tablet 5 mg PO BID candesartan 4 mg tablet 2 mg PO QAM Hold Instructions: please HOLD until you see Dr Mcallister Rx Instructions: ON HOLD levothyroxine 125 mcg tablet 125 mcg PO DAILYBB metoprolol succinate 25 mg tablet extended release 24 hr 25 mg PO QAM pramipexole 0.5 mg tablet 0.5 mg PO HS albuterol sulfate 90 mcg/actuation HFA aerosol inhaler 2 puff INHALATION Q6H PRN (Reason: Shortness Of Breath Or Wheezing) magnesium oxide 400 mg magnesium Tablet 400 mg PO QAM PreserVision AREDS-2 250-90-40-1 mg Capsule 1 tab PO AMHS Discontinued bumetanide 2 mg tablet See Rx Instructions .ROUTE .COMPLEX Rx Instructions: TAKES 3 MG QAM, THEN 2 MG QPM Discharge Orders: Discharge Order (Routine); Ordered 03/20/25 Ordered By: Kate Jorgensen Admission Data Admit Date/Time: 03/17/25 00:28 Attending Provider: Devante Dockery Admit Provider: Ning Hernandez Primary Care Provider: Adams Mcallister Other Providers: Zia Mckeon [place] Other Interventions: Discharge Summary Assessment (RN) Last Done: 03/20/25 13:12 Supervising Physician Co-Signing Physician Notes I personally examined the patient and verified all aguilar points of history and exam, discussed case, and agree with decision making with Dr Jorgensen feeling good wants to go home. Vitals noted, in general she is awake and alert pleasant no distress. HEENT normocephalic atraumatic mucous membranes moist. Lungs are overall clear but diminished bibasilar no rales rhonchi or wheezes. Skin without rashes pallor or icterus. Right sided ureterolithiasis w/ hydronephrosis s/p stent placement - urology consult - pain control as noted. Continue tamsulosin. Stable for discharge from the standpoint, outpatient follow up EVANGELINA/acute renal failure present on admission - suspect much more from diuretic related to HFpEF then from ureteral obstruction given that was unilateral. Improving. Continue to follow fluid balance. outpatient follow up w PCP to continue to adjust diuretic dosing - PCP and BMP later this week HFpEF - Acute hypoxia appears to be related to thisimproving and now EVANGELINA back to baseline - resume diuretics at lower dose, and have close/ongoing PCP f/u and BMP Atrial fibrillation - continue amiodarone, metoprolol, apixaban; Rate controlled/anticoagulated DMII - glycemic consult - home on home meds ORTEGA - strongly encourage CPAP use in hospital. Patient declines. Else see resident documentation as noted.
--- NOTE | 2025-03-20 19:51 | Billing Data ---
Date of Service March 20, 2025 Coding Level of Care Code 13810 IN/OBS DISCH 30 MIN/LESS
[2025-03-20] MEDS ORDERED: APIXABAN 5 MG TABLET PO SCH (21:00)
== END 2025-03-20 14:08 | disposition home or self-care (01) | DRG 660 ==
LOC: ED 21:20 → SUATTDRO 03-17 00:28 → EDINP 03-17 00:28 → 3W 03-17 06:00